=== PATIENT | female | born 1965 | race Two or more races ===

== ENCOUNTER 2020-10-02 09:41 | Inpatient (IN) | payer MEDICAID ==
[~2020-10-02] VITALS: Ht 162.6 cm; Wt 68.0 kg
[2020-10-02 09:45] VITALS: BP 131/67
--- NOTE | 2020-10-02 09:45 | NUR ---
ED Nurse Note: Pt brought in by ambulance from home c/o SOB and cough x 3 days with fever starting this morning. Respirations are labored, but even on 2 L NC with ow sat 97% upon arrival. All other vitals stable as documented. temp 101. A+Ox4 speaking in complete sentences.
[2020-10-02] MEDS ORDERED: dexAMETHasone 10mg/ml Inj IV ONE (10:00)
[2020-10-02] MEDS ORDERED: cefTRIAXone 1 GM in NS 55 ML IVPB ONE (10:00)
[2020-10-02] MEDS ORDERED: Azithromycin 500 MG in NS 275 ML IV ONE (10:00)
--- NOTE | 2020-10-02 10:20 | NUR ---
ED Nurse Note: palced pt on RA. Pt 95%. ED MD aware
[2020-10-02 10:33] LABS: HEMATOCRIT 38.1 % (37.0-47.0); HEMOGLOBIN 12.4 G/DL (12.0-16.0); MEAN CORPUSCULAR VOLUME 88 FL (80-99); PLATELET COUNT 230 K/UL (150-450); RED BLOOD COUNT 4.35 M/UL (4.20-5.40); RED CELL DISTRIBUTION WIDTH 12.5 % (11.6-14.8); WHITE BLOOD COUNT 12.6 K/UL (4.8-10.8)
--- NOTE | 2020-10-02 10:49 | NUR ---
ED Nurse Note: urine collected and sent to lab
--- NOTE | 2020-10-02 10:49 | NUR ---
ED Nurse Note: ABG back. Per eD MD, place pt on 4 L NC.
[2020-10-02 11:00] LABS: ANION GAP 10 mmol/L (5-15); BLOOD UREA NITROGEN 9 mg/dL (7-18); CALCIUM 9.2 MG/DL (8.5-10.1); CARBON DIOXIDE 27 MMOL/L (21-32); CHLORIDE 102 MMOL/L (98-107); CREATININE 0.8 MG/DL (0.55-1.30); POTASSIUM 3.2 MMOL/L (3.5-5.1); SODIUM 139 MMOL/L (136-145)
[2020-10-02 11:09] LABS: ALANINE AMINOTRANSFERASE 32 U/L (12-78); ALBUMIN 3.1 G/DL (3.4-5.0); ALBUMIN/GLOBULIN RATIO 0.6 (1.0-2.7); ALKALINE PHOSPHATASE 101 U/L (46-116); ASPARTATE AMINO TRANSFERASE 46 U/L (15-37); BILIRUBIN,TOTAL 0.8 MG/DL (0.2-1.0); CREATINE KINASE 138 U/L (26-308)
[2020-10-02 11:33] LABS: APPEARANCE,URINE SLIGHTLY CLOUDY; BILIRUBIN, URINE NEGATIVE (NEGATIVE); GLUCOSE, URINE (UA) NEGATIVE (NEGATIVE); KETONES,URINE NEGATIVE (NEGATIVE); LEUKOCYTE ESTERASE ,URINE 2+ (NEGATIVE); NITRITE,URINE NEGATIVE (NEGATIVE); PH,URINE 6 (4.5-8.0); PROTEIN,URINE 2+ (NEGATIVE); UROBILINOGEN,URINE 8 MG/DL (0.0-1.0)
[2020-10-02] MEDS ORDERED: Acetaminophen 500mg (ES) tab ORAL ONE (11:45)
[2020-10-02 11:47] LABS: COLOR,URINE YELLOW
[2020-10-02 12:00] VITALS: BP 139/76
--- NOTE | 2020-10-02 12:15 | Emergency Room Report ---
History of Present Illness General Chief Complaint: Dyspnea/Respdistress Source: Patient Present Illness HPI 55-year-old female no prior medical history brought in by ambulance for shortness of breath and cough x4 days. She has borderline O2 sat at rest at 88- 90%. Endorses nausea, fatigue, high fevers T-max 102 at home. History is limited secondary to patient's work of breathing. The patient's symptoms were gradual onset, severity was moderate, duration since 4 days. Quality: Dry cough Past medical history: Denies Past surgical history: Denies Smoking: Denies Alcohol use: Denies Drug use: Denies Review of systems: CONST: Positive fevers positive chills, No night sweats PULMONARY: Positive dry cough, positive shortness of breath CARDIAC: No chest pain, No palpitations GI: Positive vomiting, positive diarrhea , No melena_or_BRBPR : No dysuria, No hematuria, No discharge NEURO: No new_focal_weakness_or_numbness, No confusion, No vision changes 14 point Review of Systems is otherwise negative except per HPI Physical Exam: GENERAL: Awake_alert_ nontoxic, no acute distress Spo2 88% on RA -normal EYES: Extraocular muscles are intact. Conjunctivae clear. Lids without swelling ENT: External nose and ear normal_in_appearance. Oropharynx clear. Head_atraumatic, Moist_oral_mucosa NECK: No JVD. No meningismus. No thyromegaly. Supple. Trachea midline RESP: Tachypneic. Subcostal retractions. Speaks in clipped sentences CARDIAC: Regular rate and regular rhytm. No_significant pedal edema. ABDOMEN: Soft. Nondistended. Nontender_No_rebound_or_guarding. MSK: Normal muscle tone, without rigidity. Extremities without asymmetric deformity or swelling. SKIN: Warm and dry. No visible cyanosis or pallor NEUROLOGIC: Alert, oriented x3. Motor_and_sensation_grossly_intact. No truncal ataxia. Gait_normal Psych: Normal mood and affect, normal judgment and insight - COORDINATION OF CARE Case was discussed with: Patient Any labs and imaging that were ordered were interpreted as part of the medical decision making: Medical Decision Making/Plan: Differential includes COVID, pneumonia, bronchitis, CHF, pulmonary edema, pulmonary embolism, pleural effusion among others. On examination, patient has significant work of breathing and air hunger. Pulse oxygen saturation on room air is 88% to 90%. She has no underlying COPD or asthma. Room air ABG confirms hypoxemia. Due to hypoxia she was placed on nasal cannula at 4 L. CXR shows multifocal groundglass infiltrate. Seems to be consistent with COVID- 19 pneumonia, rather than CHF. COVID-19 rapid swab was positive. Labs are otherwise unremarkable except for ABG showing hypoxemia Presentation not consistent with ischemia / ACS. Based on the patients PSI/PORT score, has high enough mortality risk that inpat ient admission for IV antibiotics and clinical observation is most appropriate. Patient given Ceftriaxone / Azithromycin/decadron. Symptoms are not likely to be pulmonary embolism, patient no significant PE risk factors, and has more likely alternate cause of symptoms. - CRITICAL CARE TIME - I spent 35 minutes of critical care time. This time excludes any separately billable procedures. Organ systems at risk include: Pulmonary / respiratory Treatments/Evaluations: Emergent and rapid respiratory assessment and management with continuous monitoring. Advanced airway equipment at the ready, while the patient's respiratory symptoms were stabilized. Given the patients presentation with pneumonia with hypoxic respiratory failure, there existed the potential for imminent deterioration in the patient's condition due to respiratory compromise. Organ systems at risk for failure without immediate intervention include pulmonary / respiratory. This time was spent reviewing the patients records, reviewing vital signs, reassessing the patients clinical status, discussing the case and care with staff and consultants, and performing high-complexity medical decision making. I considered the possibility of Bipap vs intubation , but at this time the patient is protecting their airway and maintaining their saturation on supplemental oxygen so will defer intubation at this time, although they will be closely monitored for any further deterioration. 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 Rhythm: Normal sinus rhythm Rate: 91 bpm QTc: 450 Morphology: No_significant_ST_elevations_or_depressions, No STEMI Impression: Normal_sinus_rhythm_without_significant_abnormality Rhythm Strip Diag. Results Rhythm Strip Time: 12:53 EP Interpretation: yes Rate: 101 Rhythm: NSR, no PVC's, no ectopy Chest X-Ray Diagnostic Results Chest X-Ray Diagnostic Results : [address] Chest X-Ray: Views: [ 1 ] view(s) Indication: Cough Findings: Normal heart size. Mediastinum normal. Impression: multifocal pneumonia The X-ray(s) were independently viewed and interpreted contemporaneously Electronically signed by Jessie yañez DO Reevaluation Time: 12:53 Last Vital Signs Date Time Temp Pulse Resp B/P (MAP) Pulse Ox O2 Delivery O2 Flow Rate FiO2 10/02/20 09:45 85 18 Room Air 10/02/20 09:45 100.0 131/67 95 2.0 Status: improved Disposition: ADMITTED INPATIENT Admit Decision Time: 12:00 Condition: Stable Jessie Odell D.O. Oct 02, 2020 12:15
[2020-10-02 14:00] VITALS: BP 143/81
[2020-10-02] MEDS ORDERED: ALBUTEROL2.5 MG/3 M INH (14:12)
--- NOTE | 2020-10-02 14:13 | Diagnostic Imaging Report ---
Indication: Cough Technique: One view of the chest Comparison: none Findings: There are bilateral mid and lower lung streaky infiltrates in a peribronchovascular distribution. The heart size is upper limits normal. There is torturous ectatic and calcified. Impression: Bilateral infiltrates, likely multifocal pneumonia, likely viral
--- NOTE | 2020-10-02 15:14 | NUR ---
ED Nurse Note: pt transferred safely to 4E with all belongings.
--- NOTE | 2020-10-02 15:21 | NUR ---
REPORT GIVEN TO AGATHA BARLOW PATIENT WILL BE TRANSFERD TO ROOM 412-1 VIA [facility]
--- NOTE | 2020-10-02 15:36 | NUR ---
Note connie in EDM - 10/02/20 at 1536 by CHALINO ED Note: Report given to YEN Ugarte on 4E.
--- NOTE | 2020-10-02 15:50 | NUR ---
Note connie in EDM - 10/02/20 at 1706 by CHALINO ED Nurse Note: pt transferred safely to with all belongings.
--- NOTE | 2020-10-02 15:54 | NUR ---
NURSE NOTES: Received pt from ER and report from YEN Keller. Pt was transferred via hospital bed. Pt awake, alert and oriented x4, ambulatory, [place] speaking but understand Macanese. On NC 4L, saturating 97%. Pt stating hard to breath. no SOB noted. Denies any pain at this time. All belongings checked and accounted for. Vitals stable Skin intact. IV on R ac 20G intact and patent. Bed in low position and locked. Side rails up x2. Bedside commode provided. Call light within reach. Will continue to monitor.
--- NOTE | 2020-10-02 15:59 | Consultation ---
DATE OF CONSULTATION: 10/02/2020 PULMONARY CONSULTATION HISTORY OF PRESENT ILLNESS: This 55-year-old female was brought to the hospital with cough and shortness of breath. This has been going on for about 4 days. The patient was hypoxic on arrival. She reported fever at home. The patient denies any significant medical illnesses. PAST HISTORY: None. SURGERIES: None. SOCIAL HISTORY: No alcohol or tobacco usage. HOME MEDICATIONS: None reported. REVIEW OF SYSTEMS: Denies any headaches, hematemesis, melena, hematochezia, or weight loss. PHYSICAL EXAMINATION: GENERAL: A 55-year-old female. HEENT: Unremarkable. CHEST: Clear breath sounds bilaterally. HEART: Normal heart sounds. ABDOMEN: Soft. EXTREMITIES: There is no edema. NEUROLOGIC: Nonfocal. VITAL SIGNS: Blood pressure 143/80, heart rate is 84, respirations are 18, O2 sats 98% on 4 L oxygen, T-max 100.3. LABORATORY DATA: Lab testing shows white count 12,000, otherwise normal CBC and BMP. Potassium 3.2, AST 46. Troponin is negative. Lactic acid 1.3. ABG was obtained, which shows pH 7.49, pCO2 42, and pO2 of 43. Urinalysis is negative. X-ray chest was obtained, which shows bilateral patchy infiltrates. IMPRESSION: 1. Bilateral pneumonia. 2. COVID-19 pneumonia, confirmed on nasopharyngeal swab. 3. Hypoxemia. DISCUSSION: Admit to the hospital. The patient will benefit from Decadron. We will initiate. We will also start Lovenox. Defer the use of remdesivir to ID specialist. Consider broad-spectrum antibiotics. We will follow carefully. Louis Jean-Baptiste M.D. DR: STARR JOB#: [id number] CC:
[2020-10-02 16:00] VITALS: BP 116/67
--- NOTE | 2020-10-02 16:50 | Cardiac Electrophysiology PN ---
Subjective Subjective [id number] Objective Last 24 Hour Vital Signs Date Time Temp Pulse Resp B/P (MAP) Pulse Ox O2 Delivery O2 Flow Rate FiO2 10/02/20 16:00 98.0 85 20 116/67 (83) 97 10/02/20 15:14 86 20 130/70 98 Nasal Cannula 4.0 10/02/20 14:00 100.0 81 20 143/81 99 Nasal Cannula 4.0 10/02/20 12:31 100.1 10/02/20 12:00 100.3 86 18 139/76 100 Nasal Cannula 4.0 10/02/20 09:45 85 18 Room Air 10/02/20 09:45 100.0 79 18 131/67 95 Nasal Cannula 2.0 10/02/20 09:35 100.9 91 18 134/67 (89) 91 Room Air Laboratory Tests Test 10/02/20 10:15 10/02/20 10:30 10/02/20 10:45 White Blood Count 12.6 K/UL (4.8-10.8) H Red Blood Count 4.35 M/UL (4.20-5.40) Hemoglobin 12.4 G/DL (12.0-16.0) Hematocrit 38.1 % (37.0-47.0) Mean Corpuscular Volume 88 FL (80-99) Mean Corpuscular Hemoglobin 28.6 PG (27.0-31.0) Mean Corpuscular Hemoglobin Concent 32.6 G/DL (32.0-36.0) Red Cell Distribution Width 12.5 % (11.6-14.8) Platelet Count 230 K/UL (150-450) Mean Platelet Volume 10.1 FL (6.5-10.1) Neutrophils (%) (Auto) % (45.0-75.0) Lymphocytes (%) (Auto) % (20.0-45.0) Monocytes (%) (Auto) % (1.0-10.0) Eosinophils (%) (Auto) % (0.0-3.0) Basophils (%) (Auto) % (0.0-2.0) Differential Total Cells Counted 100 Neutrophils % (Manual) 90 % (45-75) H Lymphocytes % (Manual) 9 % (20-45) L Monocytes % (Manual) 1 % (1-10) Eosinophils % (Manual) 0 % (0-3) Basophils % (Manual) 0 % (0-2) Band Neutrophils 0 % (0-8) Platelet Estimate Adequate Platelet Morphology Normal Red Blood Cell Morphology Normal Sodium Level 139 MMOL/L (136-145) Potassium Level 3.2 MMOL/L (3.5-5.1) L Chloride Level 102 MMOL/L (98-107) Carbon Dioxide Level 27 MMOL/L (21-32) Anion Gap 10 mmol/L (5-15) Blood Urea Nitrogen 9 mg/dL (7-18) Creatinine 0.8 MG/DL (0.55-1.30) Estimat Glomerular Filtration Rate > 60 mL/min (>60) Glucose Level 130 MG/DL (74-106) H Lactic Acid Level 1.30 mmol/L (0.4-2.0) Calcium Level 9.2 MG/DL (8.5-10.1) Total Bilirubin 0.8 MG/DL (0.2-1.0) Aspartate Amino Transf (AST/SGOT) 46 U/L (15-37) H Alanine Aminotransferase (ALT/SGPT) 32 U/L (12-78) Alkaline Phosphatase 101 U/L (46-116) Total Creatine Kinase 138 U/L (26-308) Troponin I 0.000 ng/mL (0.000-0.056) Pro-B-Type Natriuretic Peptide 633 pg/mL (0-125) H Total Protein 8.1 G/DL (6.4-8.2) Albumin 3.1 G/DL (3.4-5.0) L Globulin 5.0 g/dL Albumin/Globulin Ratio 0.6 (1.0-2.7) L Arterial Blood pH 7.498 (7.350-7.450) Arterial Blood Partial Pressure CO2 32.1 mmHg (35.0-45.0) L Arterial Blood Partial Pressure O2 43.7 mmHg (75.0-100.0) Arterial Blood HCO3 24.4 mmol/L (22.0-26.0) Arterial Blood Oxygen Saturation 84.6 % (95-100) *L Arterial Blood Base Excess 1.7 (-2-2) Raghavendra Test Positive Urine Color Yellow Urine Appearance Slightly cloudy Urine pH 6 (4.5-8.0) Urine Specific [place] 1.015 (1.005-1.035) Urine Protein 2+ (NEGATIVE) H Urine Glucose (UA) Negative (NEGATIVE) Urine Ketones Negative (NEGATIVE) Urine Blood 1+ (NEGATIVE) H Urine Nitrite Negative (NEGATIVE) Urine Bilirubin Negative (NEGATIVE) Urine Urobilinogen 8 MG/DL (0.0-1.0) H Urine Leukocyte Esterase 2+ (NEGATIVE) H Urine RBC 0-2 /HPF (0 - 2) Urine WBC 5-10 /HPF (0 - 2) H Urine Squamous Epithelial Cells Few /LPF (NONE/OCC) Urine Bacteria Few /HPF (NONE) Urine Mucus Few /LPF (NONE/OCC) H Microbiology Date/Time Source Procedure Growth Status 10/02/20 10:15 Nasopharynx SARS-CoV-2 RdRp Gene Assay - Final Complete 10/02/20 10:15 Nasal Nares Left - Final Complete 10/02/20 10:15 Nasal Nares Left - Final Complete Link Damon MD Oct 02, 2020 16:50
--- NOTE | 2020-10-02 17:30 | History & Physical ---
History of Present Illness General Reason for Hospitalization: Dyspnea/Respdistress Present Illness HPI 55-year-old female no prior medical history brought in by ambulance for shortness of breath and cough x4 days. She has borderline O2 sat at rest at 88- 90%. Endorses nausea, fatigue, high fevers T-max 102 at home. History is limited secondary to patient's work of breathing. The patient's symptoms were gradual onset, severity was moderate, duration since 4 days. Quality: Dry cough Allergies: Coded Allergies: No Known Allergies (Unverified , 10/02/20) COVID-19 Screening Contact w/high risk pt: No Experienced COVID-19 symptoms?: Yes Coronavirus symptoms experienc: Fever (T>100.4F or >38C), Fatigue, Shortness of Breath Medication History Scheduled PRN Albuterol Sulfate* (Albuterol Sulfate Hhn*), 3 ML INH Q6H PRN for Shortness of Breath, (Reported) Patient History Healthcare decision maker Resuscitation status Advanced Directive on File Review of Systems Review of Symptoms General ROS: + fever Psychological ROS: no depression or mood changes, no memory loss Ophthalmic ROS: no visual changes or eye irritation ENT ROS: no nasal congestion, hearing loss, dizziness Allergy and Immunology ROS: no allergic symptoms or urticaria Hematological and Lymphatic ROS: no swollen glands, unusual bleeding or bruising Endocrine ROS: no polyuria, polydipsia, weight changes, temperature intolerance Respiratory ROS: + cough, + SOB Cardiovascular ROS: no chest pain or dyspnea on exertion Gastrointestinal ROS: denies abdominal pain, bright red blood in stool. Musculoskeletal ROS: no myalgias or arthralgias Neurological ROS: no TIA or stroke symptoms Dermatological ROS: no new or changing skin lesions, rashes or pruritis Physical Exam Physical Exam General appearance: alert, cooperative, no distress, appears stated age Head: Normocephalic, without obvious abnormality, atraumatic Eyes: conjunctivae/corneas clear. PERRL, EOM's intact. Fundi benign Throat: Lips, mucosa, and tongue normal. Teeth and gums normal Neck: supple, symmetrical, trachea midline, no adenopathy, thyroid: not enlarged, symmetric, no tenderness/mass/nodules, no carotid bruit and no JVD Lungs: clear to auscultation bilaterally Heart: regular rate and rhythm, S1, S2 normal, no murmur, click, rub or gallop Abdomen: soft, non-tender. Bowel sounds normal. No masses, no organomegaly Extremities: extremities normal, atraumatic, no cyanosis or edema Pulses: 2+ and symmetric Skin: Skin color, texture, turgor normal. No rashes or lesions Neurologic: Grossly normal Last 24 Hour Vital Signs Date Time Temp Pulse Resp B/P (MAP) Pulse Ox O2 Delivery O2 Flow Rate FiO2 10/02/20 16:00 98.0 85 20 116/67 (83) 97 10/02/20 15:14 86 20 130/70 98 Nasal Cannula 4.0 10/02/20 14:00 100.0 81 20 143/81 99 Nasal Cannula 4.0 10/02/20 12:31 100.1 10/02/20 12:00 100.3 86 18 139/76 100 Nasal Cannula 4.0 10/02/20 09:45 85 18 Room Air 10/02/20 09:45 100.0 79 18 131/67 95 Nasal Cannula 2.0 10/02/20 09:35 100.9 91 18 134/67 (89) 91 Room Air Laboratory Tests Test 10/02/20 10:15 10/02/20 10:30 10/02/20 10:45 White Blood Count 12.6 K/UL (4.8-10.8) H Red Blood Count 4.35 M/UL (4.20-5.40) Hemoglobin 12.4 G/DL (12.0-16.0) Hematocrit 38.1 % (37.0-47.0) Mean Corpuscular Volume 88 FL (80-99) Mean Corpuscular Hemoglobin 28.6 PG (27.0-31.0) Mean Corpuscular Hemoglobin Concent 32.6 G/DL (32.0-36.0) Red Cell Distribution Width 12.5 % (11.6-14.8) Platelet Count 230 K/UL (150-450) Mean Platelet Volume 10.1 FL (6.5-10.1) Neutrophils (%) (Auto) % (45.0-75.0) Lymphocytes (%) (Auto) % (20.0-45.0) Monocytes (%) (Auto) % (1.0-10.0) Eosinophils (%) (Auto) % (0.0-3.0) Basophils (%) (Auto) % (0.0-2.0) Differential Total Cells Counted 100 Neutrophils % (Manual) 90 % (45-75) H Lymphocytes % (Manual) 9 % (20-45) L Monocytes % (Manual) 1 % (1-10) Eosinophils % (Manual) 0 % (0-3) Basophils % (Manual) 0 % (0-2) Band Neutrophils 0 % (0-8) Platelet Estimate Adequate Platelet Morphology Normal Red Blood Cell Morphology Normal Sodium Level 139 MMOL/L (136-145) Potassium Level 3.2 MMOL/L (3.5-5.1) L Chloride Level 102 MMOL/L (98-107) Carbon Dioxide Level 27 MMOL/L (21-32) Anion Gap 10 mmol/L (5-15) Blood Urea Nitrogen 9 mg/dL (7-18) Creatinine 0.8 MG/DL (0.55-1.30) Estimat Glomerular Filtration Rate > 60 mL/min (>60) Glucose Level 130 MG/DL (74-106) H Lactic Acid Level 1.30 mmol/L (0.4-2.0) Calcium Level 9.2 MG/DL (8.5-10.1) Total Bilirubin 0.8 MG/DL (0.2-1.0) Aspartate Amino Transf (AST/SGOT) 46 U/L (15-37) H Alanine Aminotransferase (ALT/SGPT) 32 U/L (12-78) Alkaline Phosphatase 101 U/L (46-116) Total Creatine Kinase 138 U/L (26-308) Troponin I 0.000 ng/mL (0.000-0.056) Pro-B-Type Natriuretic Peptide 633 pg/mL (0-125) H Total Protein 8.1 G/DL (6.4-8.2) Albumin 3.1 G/DL (3.4-5.0) L Globulin 5.0 g/dL Albumin/Globulin Ratio 0.6 (1.0-2.7) L Arterial Blood pH 7.498 (7.350-7.450) Arterial Blood Partial Pressure CO2 32.1 mmHg (35.0-45.0) L Arterial Blood Partial Pressure O2 43.7 mmHg (75.0-100.0) Arterial Blood HCO3 24.4 mmol/L (22.0-26.0) Arterial Blood Oxygen Saturation 84.6 % (95-100) *L Arterial Blood Base Excess 1.7 (-2-2) Raghavendra Test Positive Urine Color Yellow Urine Appearance Slightly cloudy Urine pH 6 (4.5-8.0) Urine Specific [place] 1.015 (1.005-1.035) Urine Protein 2+ (NEGATIVE) H Urine Glucose (UA) Negative (NEGATIVE) Urine Ketones Negative (NEGATIVE) Urine Blood 1+ (NEGATIVE) H Urine Nitrite Negative (NEGATIVE) Urine Bilirubin Negative (NEGATIVE) Urine Urobilinogen 8 MG/DL (0.0-1.0) H Urine Leukocyte Esterase 2+ (NEGATIVE) H Urine RBC 0-2 /HPF (0 - 2) Urine WBC 5-10 /HPF (0 - 2) H Urine Squamous Epithelial Cells Few /LPF (NONE/OCC) Urine Bacteria Few /HPF (NONE) Urine Mucus Few /LPF (NONE/OCC) H Microbiology Date/Time Source Procedure Growth Status 10/02/20 10:15 Nasopharynx SARS-CoV-2 RdRp Gene Assay - Final Complete 10/02/20 10:15 Nasal Nares Left - Final Complete 10/02/20 10:15 Nasal Nares Left - Final Complete Height (Feet): 5 Height (Inches): 5.00 Weight (Pounds): 150 Medications Current Medications Medications (Trade) Dose Ordered Sig/Libertad Route PRN Reason Start Time Stop Time Status Last Admin Dose Admin Acetaminophen (Tylenol) 650 mg Q6H PRN ORAL For Pain 10/02/20 17:15 11/01/20 17:14 Acetaminophen (Tylenol) 650 mg Q6H PRN ORAL Temp >100.5 10/02/20 17:15 11/01/20 17:14 Albuterol/ Ipratropium (Combivent Respimat) 1 puff Q4HRT INH 10/02/20 19:00 11/01/20 18:59 Dexamethasone Sodium Phosphate (Decadron 10mg/ ml Inj) 6 mg DAILY IV 10/03/20 09:00 10/11/20 12:00 Enoxaparin Sodium (Lovenox) 40 mg DAILY SUBQ 10/03/20 09:00 01/01/21 08:59 Furosemide (Lasix) 40 mg DAILY IV 10/03/20 09:00 11/02/20 08:59 Potassium Chloride (K-Dur) 40 meq ONCE ORAL 10/02/20 17:15 10/02/20 19:00 Assessment/Plan Diagnosis [facility]: #COVID pneumonia #hypoxemic resp failure #sepsis - admit inpatient - ID eval - pulm eval - dexamethsone - defer remdesevir to ID - breathing tx - supplemental O2 - DCT ppx - monitor labs - avoid nephrotoxins [facility] Hospital declaration I spent 70 minutes on this patient's case, and 35 minutes was dedicated to counseling and/or care coordination. MIPS (Merit-based Incentive Payment System) Applicable CPT: 76735, 97411 CHECK ALL THAT ARE MET: Measure #5 (CHF): All ages. Prescribe YUSRA/ARB upon discharge for patients with left ventricular systolic dysfunction. If not, the reason is clearly documented in the medical chart. Measure #8 (CHF): All ages. Prescribe a beta megan upon discharge for patients with left ventricular systolic dysfunction. If not, the reason is clearly documented in the medical chart. Measure #47 Advance care plan or surrogate decision maker documented in the medical record. Measure #130 The provider has documented, updated, or reviewed the patients current medication list and has documented it in the patients note. Measure #374 (All): Send report to referring provider. Measure #407(Sepsis due to MSSA bacteremia): Age 18+ Patient treated with a beta-lactam antibiotic (Nafcillin, Oxacillin or Cefazolin) as definitive therapy. MEDICAL COMPLEXITY High complexity medical decision making (need 2/3 categories) Problem - need 4 points Acute/new problem with new plan for workup (4 points, 1 max) Acute/new problem without additional workup (3 points, 1 max) Unstable chronic problem actively being managed (2 point each, 2 max) Stable chronic problem actively being managed (1 point each, 2 max) Self-limited/transient process (constipation, muscle ache, etc) (1 point each, 2 max) Data - need 4 points Reviewed labs/imaging studies (1 points, 2 max) Independent review of imaging (EKG, xrays, etc) (2 points, 2 max) Discussed case with consult/other MD/RN (2 points, 2 max) High Risk - qualify if have one of the following: Severe exacerbation of acute problem, acute mental status change, IV narcotics, monitoring drug levels (vancomycin, INR, tacrolimus etc) Manuel Rajput M.D. 6, 2021 17:30
[2020-10-02] MEDS ORDERED: Albuterol/Ipratropium 3ml neb HHN SCH (19:00)
--- NOTE | 2020-10-02 19:14 | Consultation ---
DATE OF CONSULTATION: 10/02/2020 CARDIOLOGY CONSULTATION REFERRING PHYSICIAN: Manuel Rajput M.D. REASON FOR CONSULTATION: Shortness of breath and tachycardia. HISTORY OF PRESENT ILLNESS: The patient is a 55-year-old lady with no past medical history, who was brought to the emergency room for increased shortness of breath and cough for 4 days. The patient's O2 saturation at rest has been 88%. The patient was evaluated in the emergency room and noted to be COVID positive. The patient was admitted at the time of my evaluation, is on 4 L nasal cannula. Denies any chest pain, although she is mildly short of breath. REVIEW OF SYSTEMS: Negative other than what was mentioned in history of present illness. PAST MEDICAL HISTORY: As mentioned above. FAMILY HISTORY: Noncontributory. SOCIAL HISTORY: She lives at home. Does not smoke or drink alcohol. PHYSICAL EXAMINATION: VITAL SIGNS: Blood pressure of 116/67, pulse 85, respirations 18, temperature 98. Maximum temperature is 100.3. HEAD AND NECK: Mild JVD. LUNGS: Decreased breath sounds. CARDIOVASCULAR: Regular S1 and S2 with no gallop or murmur. ABDOMEN: Soft. EXTREMITIES: No pitting edema. LABORATORY AND DIAGNOSTIC DATA: Labs show white count of 12.7, hematocrit 12.5, hematocrit 38.1, and platelet count 230. Sodium 139, potassium 3.2, BUN of 9, creatinine 0.8, and glucose of 130. BNP is 633. ASSESSMENT AND PLAN: 1. Elevated BNP of 633 and shortness of breath. The patient may have some component of congestive heart failure, even though primarily it is due to the patient's COVID pneumonia. We will repeat EKG and get an echocardiogram and repeat cardiac enzymes for further evaluation. 2. History of COVID pneumonia. The patient is on dexamethasone and Lovenox. 3. Hypokalemia. Potassium was replaced. Thank you very much for allowing me to participate in the care of this patient. Please do not hesitate to contact me for any questions regarding my evaluation. Link Damon M.D. DR: KENNEDY JOB#: [id number] CC:
[2020-10-02 20:00] VITALS: BP 110/68
--- NOTE | 2020-10-02 20:00 | NUR ---
NURSE NOTES: Patient received in bed, aox4, no acute distress. On o2 via NC at 4LPM. Ambulatory with steady gait, provided with commode for safety. Will continue with plan of care.
--- NOTE | 2020-10-02 20:00 | NUR ---
NURSE HAND-OFF: Important Events on Shift:[New admission from home. On NC 4L 97%] Patient Status: [stable] Diet: [reg] Pending Orders: [] Pending Results/Labs:[] Pending MD notification:[] Latest Vital Signs: Temperature 98.0 , Pulse 85 , B/P 116 /67 , Respiratory Rate 20 , O2 SAT 97 , Nasal Cannula, O2 Flow Rate 4.0 . Vital Sign Comment: [stable] Latest Hugo Fall Score: 35 Fall Risk: Medium Risk Safety Measures: Call light Within Reach, Bed Alarm Zone 1, Side Rails Side Rails x2, Bed position Low and Locked. Fall Precautions: Report given to [YEN Russo].
[2020-10-02 23:47] VITALS: BP 123/67
[2020-10-03 04:00] VITALS: BP 120/64
[2020-10-03 06:47] LABS: HEMATOCRIT 34.4 % (37.0-47.0); HEMOGLOBIN 11.4 G/DL (12.0-16.0); MEAN CORPUSCULAR VOLUME 87 FL (80-99); PLATELET COUNT 279 K/UL (150-450); RED BLOOD COUNT 3.94 M/UL (4.20-5.40); RED CELL DISTRIBUTION WIDTH 12.7 % (11.6-14.8); WHITE BLOOD COUNT 13.8 K/UL (4.8-10.8)
--- NOTE | 2020-10-03 07:27 | NUR ---
NURSE HAND-OFF: Important Events on Shift:[uneventful] Patient Status: [stable] Diet: [Regular] Pending Orders: [2decho and EKG] Pending Results/Labs:[] Pending MD notification:[] Latest Vital Signs: Temperature 97.9 , Pulse 75 , B/P 120 /64 , Respiratory Rate 18 , O2 SAT 98 , Nasal Cannula, O2 Flow Rate 4.0 . Vital Sign Comment: [] Latest Hugo Fall Score: 20 Fall Risk: Low Risk Safety Measures: Call light Within Reach, Bed Alarm Zone 1, Side Rails Side Rails x2, Bed position Low and Locked. Fall Precautions: Patient Fall Education Report given to [Lise Al RN].
--- NOTE | 2020-10-03 07:30 | NUR ---
NURSE NOTES: Patient is in bed awake and able to verbalize needs. Stable. Denies pain. SOB noted, respirations even on 2L oxygen via nc. Patient instructed to use call light for assistance, verbalized understanding. Patient is in bed in locked and lowest position with call light within reach. All safety measures provided. Will continue plan of care.
[2020-10-03 07:57] LABS: ANION GAP 9 mmol/L (5-15); BLOOD UREA NITROGEN 17 mg/dL (7-18); CALCIUM 9.3 MG/DL (8.5-10.1); CARBON DIOXIDE 27 MMOL/L (21-32); CHLORIDE 105 MMOL/L (98-107); CREATININE 0.8 MG/DL (0.55-1.30); PHOSPHORUS 2.9 MG/DL (2.5-4.9); POTASSIUM 3.8 MMOL/L (3.5-5.1); SODIUM 141 MMOL/L (136-145)
[2020-10-03 08:00] VITALS: BP 117/66
[2020-10-03] MEDS: Enoxaparin 40mg Inj SUBQ SCH (08:50)
[2020-10-03] MEDS: dexAMETHasone 10mg/ml Inj IV SCH (08:51)
--- NOTE | 2020-10-03 11:08 | Pulmonology Progress Note ---
Subjective Constitutional: Reports: no symptoms, fever - now resolved HEENT: Repors: no symptoms Respiratory: Reports: dry cough, shortness of breath Cardiovascular: Reports: no symptoms Gastrointestinal/Abdominal: Reports: no symptoms Allergies: Coded Allergies: No Known Allergies (Unverified , 10/02/20) Objective Last 24 Hour Vital Signs Date Time Temp Pulse Resp B/P (MAP) Pulse Ox O2 Delivery O2 Flow Rate FiO2 10/03/20 09:00 Nasal Cannula 4.0 10/03/20 08:00 97.6 68 28 117/66 (83) 97 10/03/20 04:00 97.9 75 18 120/64 (82) 98 10/02/20 23:47 98.1 70 18 123/67 (85) 97 10/02/20 21:00 Nasal Cannula 4.0 10/02/20 20:00 97.7 78 16 110/68 (82) 95 10/02/20 16:30 Nasal Cannula 4.0 10/02/20 16:00 98.0 85 20 116/67 (83) 97 10/02/20 15:14 86 20 130/70 98 Nasal Cannula 4.0 10/02/20 14:00 100.0 81 20 143/81 99 Nasal Cannula 4.0 10/02/20 12:31 100.1 10/02/20 12:00 100.3 86 18 139/76 100 Nasal Cannula 4.0 Intake and Output 10/02/20 10/03/20 19:00 07:00 Intake Total 360 ml Balance 360 ml Intake Other 360 ml # Voids 2 2 Objective 10/03 saturating at 94-96% on 4L NC General Appearance: no acute distress HEENT: atraumatic Respiratory: lungs clear Cardiovascular: normal rate, regular rhythm Abdomen: soft, non tender Microbiology Date/Time Source Procedure Growth Status 10/02/20 10:15 Nasopharynx SARS-CoV-2 RdRp Gene Assay - Final Complete 10/02/20 10:15 Nasal Nares Left - Final Complete 10/02/20 10:15 Nasal Nares Left - Final Complete Laboratory Tests 10/03/20 06:15: White Blood Count 13.8H, Red Blood Count 3.94L, Hemoglobin 11.4L, Hematocrit 34.4L, Mean Corpuscular Volume 87, Mean Corpuscular Hemoglobin 29.0, Mean Corpuscular Hemoglobin Concent 33.1, Red Cell Distribution Width 12.7, Platelet Count 279, Mean Platelet Volume 8.7, Neutrophils (%) (Auto) , Lymphocytes (%) (Auto) , Monocytes (%) (Auto) , Eosinophils (%) (Auto) , Basophils (%) (Auto) , Neutrophils % (Manual) [Pending], Lymphocytes % (Manual) [Pending], Platelet Estimate [Pending], Platelet Morphology [Pending], Sodium Level 141, Potassium Level 3.8, Chloride Level 105, Carbon Dioxide Level 27, Anion Gap 9, Blood Urea Nitrogen 17, Creatinine 0.8, Estimat Glomerular Filtration Rate > 60, Glucose Level 126H, Calcium Level 9.3, Phosphorus Level 2.9, Magnesium Level 2.4, Troponin I 0.000, Pro-B-Type Natriuretic Peptide 917H, Thyroid Stimulating Hormone (TSH) 0.285L Current Medications Medications (Trade) Dose Ordered Sig/Libertad Route PRN Reason Start Time Stop Time Status Last Admin Dose Admin Acetaminophen (Tylenol) 650 mg Q6H PRN ORAL For Pain 10/02/20 17:15 11/01/20 17:14 10/03/20 03:48 Acetaminophen (Tylenol) 650 mg Q6H PRN ORAL Temp >100.5 10/02/20 17:15 11/01/20 17:14 Albuterol/ Ipratropium (Combivent Respimat) 1 puff Q4HRT INH 10/02/20 19:00 11/01/20 18:59 10/03/20 06:31 Dexamethasone Sodium Phosphate (Decadron 10mg/ ml Inj) 6 mg DAILY IV 10/03/20 09:00 10/11/20 12:00 10/03/20 08:51 Enoxaparin Sodium (Lovenox) 40 mg DAILY SUBQ 10/03/20 09:00 01/01/21 08:59 10/03/20 08:50 Furosemide (Lasix) 40 mg DAILY IV 10/03/20 09:00 11/02/20 08:59 10/03/20 08:51 Assessment/Plan Assessment/Plan 1. Bilateral pneumonia. 2. COVID-19 pneumonia, confirmed on nasopharyngeal swab. - Defer the use of remdesivir to ID specialist. - Consider broad-spectrum antibiotics. 3. Hypoxemia. - on Decadron - currently saturating at 94-96% on 4L NC - keep SaO2 >90% 4. hx of asthma - on albuterol prn DVT ppx - Lovenox We will follow carefully. The care for this patient was discussed with my supervising physician Time spent for this case was approximately 31 minutes Darryn Hernandez Oct 03, 2020 11:08 Louis Jean-Baptiste MD Oct 03, 2020 14:36
[2020-10-03 12:00] VITALS: BP 124/68
--- NOTE | 2020-10-03 15:32 | NUR ---
CASE MANAGEMENT:INITIAL REVIEW 55 YR OLD FEMALE BIBJignesh FROM HOME CC;DYSPNEA. RESPIRATORY DISTRESS. SI;COVID PNEUMONIA. HYPOXIA. 100.9 91 18 139/76 95% 2L NC WBC 12.6 K+ 3.2 GLU 130 AST 46 BNP 633 ALB 3.1 UA+ PROTEIN, BLOOD, UROBILINOGEN, LEUKOCYTE ESTERASE, MUCUS COVID RAPID ~ POSITIVE CXR ~ Bilateral infiltrates, likely multifocal pneumonia, likely viral IS;ROCEPHIN IV ZITHROMAX IV DECADRON IV TYLENOL PO K-DUR PO ADMITTED TO MED SURG MED SURG STATUS DCP;PENDING HOSPITAL STAY Addendum: 10/03/20 at 1539 by ANTONIO ORTIZ LVN CM INTERQUAL CRITERIA MET
[2020-10-03 16:00] VITALS: BP 146/76
--- NOTE | 2020-10-03 16:45 | Cardiac Electrophysiology PN ---
Assessment/Plan Assessment/Plan 1. Elevated BNP of 633 and shortness of breath. The patient may have some component of congestive heart failure, even though primarily it is due to the patient's COVID pneumonia. EF 65% on echocardiogram. On Lasix 40 iv daily 2. History of COVID pneumonia. The patient is on dexamethasone and Lovenox. 3. Hypokalemia. Potassium was replaced. Subjective Subjective On 4 liter nasal cannula Objective Last 24 Hour Vital Signs Date Time Temp Pulse Resp B/P (MAP) Pulse Ox O2 Delivery O2 Flow Rate FiO2 10/03/20 12:00 97.7 67 24 124/68 (86) 95 10/03/20 09:00 Nasal Cannula 4.0 10/03/20 08:00 97.6 68 28 117/66 (83) 97 10/03/20 04:00 97.9 75 18 120/64 (82) 98 10/02/20 23:47 98.1 70 18 123/67 (85) 97 10/02/20 21:00 Nasal Cannula 4.0 10/02/20 20:00 97.7 78 16 110/68 (82) 95 Intake and Output 10/02/20 10/03/20 19:00 07:00 Intake Total 360 ml Balance 360 ml Intake Other 360 ml # Voids 2 2 Laboratory Tests Test 10/03/20 06:15 White Blood Count 13.8 K/UL (4.8-10.8) H Red Blood Count 3.94 M/UL (4.20-5.40) L Hemoglobin 11.4 G/DL (12.0-16.0) L Hematocrit 34.4 % (37.0-47.0) L Mean Corpuscular Volume 87 FL (80-99) Mean Corpuscular Hemoglobin 29.0 PG (27.0-31.0) Mean Corpuscular Hemoglobin Concent 33.1 G/DL (32.0-36.0) Red Cell Distribution Width 12.7 % (11.6-14.8) Platelet Count 279 K/UL (150-450) Mean Platelet Volume 8.7 FL (6.5-10.1) Neutrophils (%) (Auto) % (45.0-75.0) Lymphocytes (%) (Auto) % (20.0-45.0) Monocytes (%) (Auto) % (1.0-10.0) Eosinophils (%) (Auto) % (0.0-3.0) Basophils (%) (Auto) % (0.0-2.0) Differential Total Cells Counted 100 Neutrophils % (Manual) 92 % (45-75) H Lymphocytes % (Manual) 6 % (20-45) L Monocytes % (Manual) 2 % (1-10) Eosinophils % (Manual) 0 % (0-3) Basophils % (Manual) 0 % (0-2) Band Neutrophils 0 % (0-8) Platelet Estimate Adequate Platelet Morphology Normal Red Blood Cell Morphology Normal Sodium Level 141 MMOL/L (136-145) Potassium Level 3.8 MMOL/L (3.5-5.1) Chloride Level 105 MMOL/L (98-107) Carbon Dioxide Level 27 MMOL/L (21-32) Anion Gap 9 mmol/L (5-15) Blood Urea Nitrogen 17 mg/dL (7-18) Creatinine 0.8 MG/DL (0.55-1.30) Estimat Glomerular Filtration Rate > 60 mL/min (>60) Glucose Level 126 MG/DL (74-106) H Calcium Level 9.3 MG/DL (8.5-10.1) Phosphorus Level 2.9 MG/DL (2.5-4.9) Magnesium Level 2.4 MG/DL (1.8-2.4) Troponin I 0.000 ng/mL (0.000-0.056) Pro-B-Type Natriuretic Peptide 917 pg/mL (0-125) H Thyroid Stimulating Hormone (TSH) 0.285 uiU/mL (0.358-3.740) Microbiology Date/Time Source Procedure Growth Status 10/02/20 10:15 Nasopharynx SARS-CoV-2 RdRp Gene Assay - Final Complete 10/02/20 10:15 Nasal Nares Left - Final Complete 10/02/20 10:15 Nasal Nares Left - Final Complete Objective HEAD AND NECK: Mild JVD. LUNGS: Decreased breath sounds. CARDIOVASCULAR: Regular S1 and S2 with no gallop or murmur. ABDOMEN: Soft. EXTREMITIES: No pitting edema. Link Damon MD Oct 03, 2020 16:45
--- NOTE | 2020-10-03 18:28 | Infectious Diseases Prog Note ---
Assessment/Plan Assessment/Plan Full consult dictated: A) 1) covid-19 infection with pna, hypoxia, ? CAP, leukocytosis, fevers, ? sepsis 2) pmh noted 3) allergies - nkda P) 1) dexamethasone and remdesivir 2) ceftriaxone and azithromycin 3) monitor labs, chest x-ray and hypoxia 4) thank you Subjective Allergies: Coded Allergies: No Known Allergies (Unverified , 10/02/20) Objective Last 24 Hour Vital Signs Date Time Temp Pulse Resp B/P (MAP) Pulse Ox O2 Delivery O2 Flow Rate FiO2 10/03/20 16:00 98.1 68 22 146/76 (99) 96 10/03/20 12:00 97.7 67 24 124/68 (86) 95 10/03/20 09:00 Nasal Cannula 4.0 10/03/20 08:00 97.6 68 28 117/66 (83) 97 10/03/20 04:00 97.9 75 18 120/64 (82) 98 10/02/20 23:47 98.1 70 18 123/67 (85) 97 10/02/20 21:00 Nasal Cannula 4.0 10/02/20 20:00 97.7 78 16 110/68 (82) 95 Height (Feet): 5 Height (Inches): 4.00 Weight (Pounds): 150 Microbiology Date/Time Source Procedure Growth Status 10/02/20 10:15 Nasopharynx SARS-CoV-2 RdRp Gene Assay - Final Complete 10/02/20 10:15 Nasal Nares Left - Final Complete 10/02/20 10:15 Nasal Nares Left - Final Complete Laboratory Tests Test 10/03/20 06:15 White Blood Count 13.8 K/UL (4.8-10.8) H Red Blood Count 3.94 M/UL (4.20-5.40) L Hemoglobin 11.4 G/DL (12.0-16.0) L Hematocrit 34.4 % (37.0-47.0) L Mean Corpuscular Volume 87 FL (80-99) Mean Corpuscular Hemoglobin 29.0 PG (27.0-31.0) Mean Corpuscular Hemoglobin Concent 33.1 G/DL (32.0-36.0) Red Cell Distribution Width 12.7 % (11.6-14.8) Platelet Count 279 K/UL (150-450) Mean Platelet Volume 8.7 FL (6.5-10.1) Neutrophils (%) (Auto) % (45.0-75.0) Lymphocytes (%) (Auto) % (20.0-45.0) Monocytes (%) (Auto) % (1.0-10.0) Eosinophils (%) (Auto) % (0.0-3.0) Basophils (%) (Auto) % (0.0-2.0) Differential Total Cells Counted 100 Neutrophils % (Manual) 92 % (45-75) H Lymphocytes % (Manual) 6 % (20-45) L Monocytes % (Manual) 2 % (1-10) Eosinophils % (Manual) 0 % (0-3) Basophils % (Manual) 0 % (0-2) Band Neutrophils 0 % (0-8) Platelet Estimate Adequate Platelet Morphology Normal Red Blood Cell Morphology Normal Sodium Level 141 MMOL/L (136-145) Potassium Level 3.8 MMOL/L (3.5-5.1) Chloride Level 105 MMOL/L (98-107) Carbon Dioxide Level 27 MMOL/L (21-32) Anion Gap 9 mmol/L (5-15) Blood Urea Nitrogen 17 mg/dL (7-18) Creatinine 0.8 MG/DL (0.55-1.30) Estimat Glomerular Filtration Rate > 60 mL/min (>60) Glucose Level 126 MG/DL (74-106) H Calcium Level 9.3 MG/DL (8.5-10.1) Phosphorus Level 2.9 MG/DL (2.5-4.9) Magnesium Level 2.4 MG/DL (1.8-2.4) Troponin I 0.000 ng/mL (0.000-0.056) Pro-B-Type Natriuretic Peptide 917 pg/mL (0-125) H Thyroid Stimulating Hormone (TSH) 0.285 uiU/mL (0.358-3.740) Current Medications Medications (Trade) Dose Ordered Sig/Libertad Route PRN Reason Start Time Stop Time Status Last Admin Dose Admin Acetaminophen (Tylenol) 650 mg Q6H PRN ORAL For Pain 10/02/20 17:15 11/01/20 17:14 10/03/20 15:27 Acetaminophen (Tylenol) 650 mg Q6H PRN ORAL Temp >100.5 10/02/20 17:15 11/01/20 17:14 Albuterol/ Ipratropium (Combivent Respimat) 1 puff Q4HRT INH 10/02/20 19:00 11/01/20 18:59 10/03/20 15:23 Dexamethasone Sodium Phosphate (Decadron 10mg/ ml Inj) 6 mg DAILY IV 10/03/20 09:00 10/11/20 12:00 10/03/20 08:51 Enoxaparin Sodium (Lovenox) 40 mg DAILY SUBQ 10/03/20 09:00 01/01/21 08:59 10/03/20 08:50 Furosemide (Lasix) 40 mg DAILY IV 10/03/20 09:00 11/02/20 08:59 10/03/20 08:51 Cristiano Grant MD Oct 03, 2020 18:28
--- NOTE | 2020-10-03 19:24 | NUR ---
NURSE HAND-OFF: Important Events on Shift: o2 therapy Patient Status: stable Diet: reg Pending Orders: n/a Pending Results/Labs:n/a Pending MD notification:n/a Latest Vital Signs: Temperature 98.1 , Pulse 68 , B/P 146 /76 , Respiratory Rate 22 , O2 SAT 96 , Nasal Cannula, O2 Flow Rate 4.0 . Vital Sign Comment: n/a Latest Hugo Fall Score: 20 Fall Risk: Low Risk Safety Measures: Call light Within Reach, Bed Alarm Zone 1, Side Rails Side Rails x2, Bed position Low and Locked. Fall Precautions: Patient Fall Education Report given to Michael BARLOW.
[2020-10-03 20:00] VITALS: BP 130/71
--- NOTE | 2020-10-03 20:30 | Consultation ---
DATE OF CONSULTATION: 10/03/2020 INFECTIOUS DISEASE CONSULTATION CONSULTING PHYSICIAN: Cristiano Grant M.D. ATTENDING PHYSICIAN: Manuel Rajput M.D. REFERRING PHYSICIAN: Manuel Rajput M.D. REASON FOR CONSULTATION: COVID-19 infection, rule out community-acquired pneumonia, sepsis, fevers, leukocytosis, and hypoxia. CHIEF COMPLAINT: The patient's chief complaint coming into the hospital is hypoxic COVID infection, pneumonia, leukocytosis, fevers. HISTORY OF PRESENT ILLNESS: This is a very pleasant 55-year-old female, who comes in to [facility] with fevers and hypoxia. The patient's initial saturations were 91%. The patient is requiring four liters of oxygen. Infectious Disease consultation is requested. She currently has dexamethasone. She does have pneumonia and chest pain, most likely viral. However, because of elevated white count and fevers, consider bacterial infection and also possible sepsis. The patient was started on remdesivir, Rocephin, azithromycin, in addition to dexamethasone for the COVID infection and pneumonia. REVIEW OF SYSTEMS: Main issue is the cough, congestion, hypoxia, and shortness of breath. She has fevers coming in. Currently, no chills. CARDIAC: No chest pain. GASTROINTESTINAL: No nausea, vomiting, or diarrhea. GENITOURINARY: No urinary symptoms. SKIN: No rash. PULMONARY: She has cough, congestion, and shortness of breath. PAST MEDICAL HISTORY: The patient's past medical history is otherwise negative. SOCIAL HISTORY: Negative for smoking, alcohol, or drug abuse. ALLERGIES: No known drug allergies. FAMILY HISTORY: Noncontributory. MEDICATIONS: Upon reviewing the MAR, she is on the following medications. She is on remdesivir, Rocephin, azithromycin, furosemide, , dexamethasone, acetaminophen, albuterol. Outside medications noted and reconciliated. PHYSICAL EXAMINATION: VITAL SIGNS: Temperature 98.1, pulse rate 60, respiratory rate 22, blood pressure 146/76, she is on 4 liters nasal cannula. Respiratory rate has been as high as 28. T-max has been as high as 100.9. GENERAL: Alert and responsive. She looks mildly short of breath. HEAD AND NECK: Oral exam, no thrush. Eye exam, no icterus. Normocephalic. Neck is supple. No JVD. HEART: No gallop or murmur. ABDOMEN: Soft. Positive bowel sounds. Nontender. LUNGS: Few bilateral rhonchi and rales. SKIN: No rash. MUSCULOSKELETAL: No effusion. Legs are without cellulitis. PERIPHERAL VASCULAR: No cyanosis or gangrene. NEUROLOGIC: Intact. She is alert and oriented x3. LINE SITES: Without phlebitis. GENITOURINARY: No Mcdonald. She is in COVID isolation. LABORATORY AND DIAGNOSTIC DATA: COVID nasopharyngeal molecular testing was positive. White count 13.8, hemoglobin 11.4. Creatinine 0.8. Imaging studies, chest x-ray shows bilateral multifocal pneumonia is noted and reviewed, consistent with COVID infection or viral pneumonia. Influenza screen is negative. ASSESSMENT AND PLAN: 1. The patient has COVID-19 infection with pneumonia, hypoxia, possible community-acquired pneumonia, sepsis, fevers, leukocytosis. Continue dexamethasone, however, because of her low flow O2 requirement, the remdesivir is indicated in addition because of elevated white count, possible sepsis. She needs Rocephin, azithromycin to cover community-acquired pneumonia. Continue Rocephin and azithromycin for community-acquired pneumonia and sepsis and fevers and leukocytosis and continue dexamethasone, remdesivir for COVID-19 infection and pneumonia. Monitor hypoxia. Continue COVID isolation. Case was communicated with Dr. Rajput and also discussed with pharmacy. 2. No other significant past medical history. 3. Social history is negative. 4. Family history is noncontributory. 5. MAR is noted. 6. Case was discussed with RN. 7. Continue treatment per primary consultants. Cristiano Grant M.D. DR: PRIETO JOB#: [id number] CC:
--- NOTE | 2020-10-03 20:33 | NUR ---
NURSE NOTES: Patient in bed, awake, alert and verbally responsive. Able to make needs known. Respiration is even, nasal cannula 4 L. Skin is warm and dry to touch. Abdomen is soft and non distended. Kept clean and comfortable. Bed in low and locked position. Provided safe environment. Call light is at bedside. Will continue plan of care.
[2020-10-03] MEDS: cefTRIAXone 1 GM in D5W 50 ML IVPB SCH (21:03)
[2020-10-03] MEDS: TraZODone HCl 25 mg tablet ORAL SCH (21:05)
[2020-10-03] MEDS ORDERED: Loading Dose:Remdesivir 200mg/NS 210ml IV SCH ×2 (22:00)
[2020-10-04] VITALS: BP 128/84
[2020-10-04 04:00] VITALS: BP 130/70
[2020-10-04 06:31] LABS: HEMATOCRIT 33.9 % (37.0-47.0); HEMOGLOBIN 11.4 G/DL (12.0-16.0); MEAN CORPUSCULAR VOLUME 87 FL (80-99); PLATELET COUNT 318 K/UL (150-450); RED BLOOD COUNT 3.92 M/UL (4.20-5.40); WHITE BLOOD COUNT 20.8 K/UL (4.8-10.8)
--- NOTE | 2020-10-04 07:30 | NUR ---
NURSE HAND-OFF: Important Events on Shift: 94% on ra Patient Status: stable Diet: reg Pending Orders: n/a Pending Results/Labs:n/a Pending MD notification:n/a Latest Vital Signs: Temperature 98.0 , Pulse 67 , B/P 133 /79 , Respiratory Rate 22 , O2 SAT 94 , Nasal Cannula, O2 Flow Rate 4.0 . Vital Sign Comment: n/a Latest Hugo Fall Score: 20 Fall Risk: Low Risk Safety Measures: Call light Within Reach, Bed Alarm Zone 1, Side Rails Side Rails x2, Bed position Low and Locked. Fall Precautions: Patient Fall Education . Addendum: 10/04/20 at 1859 by POONAM PRICE RN wrong time, 10/04/20 at 18:59.
--- NOTE | 2020-10-04 07:30 | NUR ---
NURSE NOTES: Patient is in bed awake and able to verbalize needs. Stable. Denies pain, SOB noted. Patient instructed to use call light for assistance, verbalized understanding. Patient is in bed in locked and lowest position with call light within reach. All needs met at this time. Will continue to monitor.
[2020-10-04 08:00] VITALS: BP 129/71
[2020-10-04 08:46] LABS: ALANINE AMINOTRANSFERASE 45 U/L (12-78); ALBUMIN 2.6 G/DL (3.4-5.0); ALBUMIN/GLOBULIN RATIO 0.6 (1.0-2.7); ALKALINE PHOSPHATASE 86 U/L (46-116); ANION GAP 10 mmol/L (5-15); ASPARTATE AMINO TRANSFERASE 40 U/L (15-37); BILIRUBIN,TOTAL 0.3 MG/DL (0.2-1.0); BLOOD UREA NITROGEN 26 mg/dL (7-18); CALCIUM 8.9 MG/DL (8.5-10.1); CARBON DIOXIDE 28 MMOL/L (21-32); CHLORIDE 105 MMOL/L (98-107); CREATININE 0.8 MG/DL (0.55-1.30); POTASSIUM 3.5 MMOL/L (3.5-5.1); SODIUM 142 MMOL/L (136-145)
[2020-10-04] MEDS: Azithromycin 250mg tab ORAL SCH (09:51)
[2020-10-04] MEDS: Enoxaparin 40mg Inj SUBQ SCH (09:52)
[2020-10-04] MEDS: dexAMETHasone 10mg/ml Inj IV SCH (09:52)
[2020-10-04 12:00] VITALS: BP 126/68
--- NOTE | 2020-10-04 12:00 | Pulmonology Progress Note ---
Subjective Constitutional: Reports: no symptoms, fever - now resolved HEENT: Repors: no symptoms Respiratory: Reports: dry cough, shortness of breath Cardiovascular: Reports: no symptoms Gastrointestinal/Abdominal: Reports: no symptoms Allergies: Coded Allergies: No Known Allergies (Unverified , 10/02/20) Objective Last 24 Hour Vital Signs Date Time Temp Pulse Resp B/P (MAP) Pulse Ox O2 Delivery O2 Flow Rate FiO2 10/04/20 09:00 Nasal Cannula 4.0 10/04/20 08:00 98.0 65 20 129/71 (90) 95 10/04/20 04:00 98.1 63 18 130/70 (90) 95 10/04/20 00:00 97.9 66 18 128/84 (99) 96 10/03/20 20:09 Nasal Cannula 4.0 10/03/20 20:00 97.8 66 20 130/71 (90) 95 10/03/20 16:00 98.1 68 22 146/76 (99) 96 10/03/20 12:00 97.7 67 24 124/68 (86) 95 Intake and Output 10/03/20 10/04/20 19:00 07:00 Intake Total 550 ml 1300 ml Balance 550 ml 1300 ml Intake Oral 550 ml 1000 ml IV Total 300 ml # Voids 3 Objective 10/04 saturating at 96% on 4L NC 10/03 saturating at 94-96% on 4L NC General Appearance: no acute distress HEENT: atraumatic Respiratory: lungs clear Cardiovascular: normal rate, regular rhythm Abdomen: soft, non tender Microbiology Date/Time Source Procedure Growth Status 10/02/20 10:15 Nasopharynx SARS-CoV-2 RdRp Gene Assay - Final Complete 10/02/20 10:15 Nasal Nares Left - Final Complete 10/02/20 10:15 Nasal Nares Left - Final Complete 10/02/20 10:15 Blood Blood Culture - Preliminary NO GROWTH AFTER 24 HOURS Resulted 10/02/20 10:15 Blood Blood Culture - Preliminary NO GROWTH AFTER 24 HOURS Resulted Laboratory Tests 10/04/20 05:30: White Blood Count 20.8#H, Red Blood Count 3.92L, Hemoglobin 11.4L, Hematocrit 33.9L, Mean Corpuscular Volume 87, Mean Corpuscular Hemoglobin 29.2, Mean Corpuscular Hemoglobin Concent 33.7, Red Cell Distribution Width 13.0, Platelet Count 318, Mean Platelet Volume 9.3, Neutrophils (%) (Auto) , Lymphocytes (%) (Auto) , Monocytes (%) (Auto) , Eosinophils (%) (Auto) , Basophils (%) (Auto) , Differential Total Cells Counted 100, Neutrophils % (Manual) 88H, Lymphocytes % (Manual) 8L, Monocytes % (Manual) 4, Eosinophils % (Manual) 0, Basophils % (Manual) 0, Band Neutrophils 0, Platelet Estimate Adequate, Platelet Morphology Normal, Red Blood Cell Morphology Normal, Sodium Level 142, Potassium Level 3.5, Chloride Level 105, Carbon Dioxide Level 28, Anion Gap 10, Blood Urea Nitrogen 26H, Creatinine 0.8, Estimat Glomerular Filtration Rate > 60, Glucose Level 130H , Calcium Level 8.9, Phosphorus Level 3.8, Magnesium Level 2.4, Total Bilirubin 0.3, Direct Bilirubin 0.2, Aspartate Amino Transf (AST/SGOT) 40H, Alanine Aminotransferase (ALT/SGPT) 45, Alkaline Phosphatase 86, Total Protein 7.2, Albumin 2.6L, Globulin 4.6, Albumin/Globulin Ratio 0.6L, Free Thyroxine 1.36 Current Medications Medications (Trade) Dose Ordered Sig/Libertad Route PRN Reason Start Time Stop Time Status Last Admin Dose Admin Acetaminophen (Tylenol) 650 mg Q6H PRN ORAL For Pain 10/02/20 17:15 11/01/20 17:14 10/03/20 15:27 Acetaminophen (Tylenol) 650 mg Q6H PRN ORAL Temp >100.5 10/02/20 17:15 11/01/20 17:14 Albuterol/ Ipratropium (Combivent Respimat) 1 puff Q4HRT INH 10/02/20 19:00 11/01/20 18:59 10/04/20 10:16 Azithromycin (Zithromax) 500 mg DAILY ORAL 10/04/20 09:00 10/11/20 08:59 10/04/20 09:51 Ceftriaxone Sodium 1 gm/ Dextrose 50 ml @ 100 mls/hr Q24H IVPB 10/03/20 21:00 10/10/20 20:59 10/03/20 21:03 Dexamethasone Sodium Phosphate (Decadron 10mg/ ml Inj) 6 mg DAILY IV 10/03/20 09:00 10/11/20 12:00 10/04/20 09:52 Enoxaparin Sodium (Lovenox) 40 mg DAILY SUBQ 10/03/20 09:00 01/01/21 08:59 10/04/20 09:52 Furosemide (Lasix) 40 mg DAILY IV 10/03/20 09:00 11/02/20 08:59 10/04/20 09:52 Remdesivir 100 mg/ Sodium Chloride 250 ml @ 250 mls/hr Q24H IV 10/04/20 22:00 10/07/20 22:59 Trazodone HCl (Desyrel) 25 mg BEDTIME ORAL 10/03/20 21:00 11/02/20 20:59 10/03/20 21:05 Assessment/Plan Assessment/Plan 1. Bilateral pneumonia. 2. COVID-19 pneumonia, confirmed on nasopharyngeal swab. - On remdesivir per ID (10/03-) - On Broad-spectrum antibiotics 3. Hypoxemia. - on Decadron - currently saturating at 94-96% on 4L NC; titrate down as tolerated - keep SaO2 >90% 4. hx of asthma - on albuterol prn DVT ppx - Lovenox We will follow carefully. The care for this patient was discussed with my supervising physician Time spent for this case was approximately 31 minutes Darryn Hernandez Oct 04, 2020 12:00
--- NOTE | 2020-10-04 12:56 | Cardiology Report ---
APPROVED REPORT EKG Measurement Heart [id number] 122P49 [id number] <Conclusion> Normal sinus rhythm Normal ECG
--- NOTE | 2020-10-04 12:59 | Cardiology Report ---
APPROVED REPORT EKG Measurement Heart [id number] [place] 122P52 [id number] <Conclusion> Normal sinus rhythm Left axis deviation Abnormal ECG
--- NOTE | 2020-10-04 15:21 | Internal Med Progress Note ---
Subjective Physician Name Manuel Rajput Attending Physician Manuel Rajput M.D. Current Medications Medications (Trade) Dose Ordered Sig/Libertad Route PRN Reason Start Time Stop Time Status Last Admin Dose Admin Acetaminophen (Tylenol) 650 mg Q6H PRN ORAL For Pain 10/02/20 17:15 11/01/20 17:14 10/03/20 15:27 Acetaminophen (Tylenol) 650 mg Q6H PRN ORAL Temp >100.5 10/02/20 17:15 11/01/20 17:14 Albuterol/ Ipratropium (Combivent Respimat) 1 puff Q4HRT INH 10/02/20 19:00 11/01/20 18:59 10/04/20 10:16 Azithromycin (Zithromax) 500 mg DAILY ORAL 10/04/20 09:00 10/11/20 08:59 10/04/20 09:51 Ceftriaxone Sodium 1 gm/ Dextrose 50 ml @ 100 mls/hr Q24H IVPB 10/03/20 21:00 10/10/20 20:59 10/03/20 21:03 Dexamethasone Sodium Phosphate (Decadron 10mg/ ml Inj) 6 mg DAILY IV 10/03/20 09:00 10/11/20 12:00 10/04/20 09:52 Enoxaparin Sodium (Lovenox) 40 mg DAILY SUBQ 10/03/20 09:00 01/01/21 08:59 10/04/20 09:52 Furosemide (Lasix) 40 mg DAILY IV 10/03/20 09:00 11/02/20 08:59 10/04/20 09:52 Remdesivir 100 mg/ Sodium Chloride 250 ml @ 250 mls/hr Q24H IV 10/04/20 22:00 10/07/20 22:59 Trazodone HCl (Desyrel) 25 mg BEDTIME ORAL 10/03/20 21:00 11/02/20 20:59 10/03/20 21:05 Allergies: Coded Allergies: No Known Allergies (Unverified , 10/02/20) All Systems: reviewed and negative except above Objective Last Vital Signs Date Time Temp Pulse Resp B/P (MAP) Pulse Ox O2 Delivery O2 Flow Rate FiO2 10/04/20 12:00 98.0 63 20 126/68 (87) 94 10/04/20 09:00 Nasal Cannula 4.0 Laboratory Tests Test 10/04/20 05:30 White Blood Count 20.8 K/UL (4.8-10.8) #H Red Blood Count 3.92 M/UL (4.20-5.40) L Hemoglobin 11.4 G/DL (12.0-16.0) L Hematocrit 33.9 % (37.0-47.0) L Mean Corpuscular Volume 87 FL (80-99) Mean Corpuscular Hemoglobin 29.2 PG (27.0-31.0) Mean Corpuscular Hemoglobin Concent 33.7 G/DL (32.0-36.0) Red Cell Distribution Width 13.0 % (11.6-14.8) Platelet Count 318 K/UL (150-450) Mean Platelet Volume 9.3 FL (6.5-10.1) Neutrophils (%) (Auto) % (45.0-75.0) Lymphocytes (%) (Auto) % (20.0-45.0) Monocytes (%) (Auto) % (1.0-10.0) Eosinophils (%) (Auto) % (0.0-3.0) Basophils (%) (Auto) % (0.0-2.0) Differential Total Cells Counted 100 Neutrophils % (Manual) 88 % (45-75) H Lymphocytes % (Manual) 8 % (20-45) L Monocytes % (Manual) 4 % (1-10) Eosinophils % (Manual) 0 % (0-3) Basophils % (Manual) 0 % (0-2) Band Neutrophils 0 % (0-8) Platelet Estimate Adequate Platelet Morphology Normal Red Blood Cell Morphology Normal Sodium Level 142 MMOL/L (136-145) Potassium Level 3.5 MMOL/L (3.5-5.1) Chloride Level 105 MMOL/L (98-107) Carbon Dioxide Level 28 MMOL/L (21-32) Anion Gap 10 mmol/L (5-15) Blood Urea Nitrogen 26 mg/dL (7-18) H Creatinine 0.8 MG/DL (0.55-1.30) Estimat Glomerular Filtration Rate > 60 mL/min (>60) Glucose Level 130 MG/DL (74-106) H Calcium Level 8.9 MG/DL (8.5-10.1) Phosphorus Level 3.8 MG/DL (2.5-4.9) Magnesium Level 2.4 MG/DL (1.8-2.4) Total Bilirubin 0.3 MG/DL (0.2-1.0) Direct Bilirubin 0.2 MG/DL (0.0-0.3) Aspartate Amino Transf (AST/SGOT) 40 U/L (15-37) H Alanine Aminotransferase (ALT/SGPT) 45 U/L (12-78) Alkaline Phosphatase 86 U/L (46-116) Total Protein 7.2 G/DL (6.4-8.2) Albumin 2.6 G/DL (3.4-5.0) L Globulin 4.6 g/dL Albumin/Globulin Ratio 0.6 (1.0-2.7) L Free Thyroxine 1.36 NG/DL (0.76-1.46) Microbiology Date/Time Source Procedure Growth Status 10/02/20 10:15 Nasopharynx SARS-CoV-2 RdRp Gene Assay - Final Complete 10/02/20 10:15 Nasal Nares Left - Final Complete 10/02/20 10:15 Nasal Nares Left - Final Complete 10/02/20 10:15 Blood Blood Culture - Preliminary NO GROWTH AFTER 24 HOURS Resulted 10/02/20 10:15 Blood Blood Culture - Preliminary NO GROWTH AFTER 24 HOURS Resulted Intake and Output 10/03/20 10/04/20 18:59 06:59 Intake Total 550 ml 1300 ml Balance 550 ml 1300 ml Intake Oral 550 ml 1000 ml IV Total 300 ml # Voids 3 Objective General appearance: alert, cooperative, no distress, appears stated age Head: Normocephalic, without obvious abnormality, atraumatic Eyes: conjunctivae/corneas clear. PERRL, EOM's intact. Fundi benign Throat: Lips, mucosa, and tongue normal. Teeth and gums normal Neck: supple, symmetrical, trachea midline, no adenopathy, thyroid: not enlarged, symmetric, no tenderness/mass/nodules, no carotid bruit and no JVD Lungs: clear to auscultation bilaterally Heart: regular rate and rhythm, S1, S2 normal, no murmur, click, rub or gallop Abdomen: soft, non-tender. Bowel sounds normal. No masses, no organomegaly Extremities: extremities normal, atraumatic, no cyanosis or edema Pulses: 2+ and symmetric Skin: Skin color, texture, turgor normal. No rashes or lesions Neurologic: Grossly normal Assessment/Plan Assessment/Plan #COVID pneumonia #hypoxemic resp failure #sepsis - admit inpatient - ID eval - pulm eval - dexamethsone - defer remdesevir to ID - breathing tx - supplemental O2 - DCT ppx - monitor labs - avoid nephrotoxins Manuel Rajput M.D. Oct 04, 2020 15:21
--- NOTE | 2020-10-04 15:39 | Cardiac Electrophysiology PN ---
Assessment/Plan Assessment/Plan 1. Elevated BNP of 633 and shortness of breath. The patient may have some component of congestive heart failure, even though primarily it is due to the patient's COVID pneumonia. EF 65% on Lasix 40 iv daily 2. History of COVID pneumonia. The patient is on dexamethasone and Lovenox.On 2 liter NC 3. Hypokalemia. Potassium was replaced. Subjective Subjective On 2 liter nasal cannula. VSS. Objective Last 24 Hour Vital Signs Date Time Temp Pulse Resp B/P (MAP) Pulse Ox O2 Delivery O2 Flow Rate FiO2 10/04/20 12:00 98.0 63 20 126/68 (87) 94 10/04/20 09:00 Nasal Cannula 4.0 10/04/20 08:00 98.0 65 20 129/71 (90) 95 10/04/20 04:00 98.1 63 18 130/70 (90) 95 10/04/20 00:00 97.9 66 18 128/84 (99) 96 10/03/20 20:09 Nasal Cannula 4.0 10/03/20 20:00 97.8 66 20 130/71 (90) 95 10/03/20 16:00 98.1 68 22 146/76 (99) 96 Intake and Output 10/03/20 10/04/20 19:00 07:00 Intake Total 550 ml 1300 ml Balance 550 ml 1300 ml Intake Oral 550 ml 1000 ml IV Total 300 ml # Voids 3 Laboratory Tests Test 10/04/20 05:30 White Blood Count 20.8 K/UL (4.8-10.8) #H Red Blood Count 3.92 M/UL (4.20-5.40) L Hemoglobin 11.4 G/DL (12.0-16.0) L Hematocrit 33.9 % (37.0-47.0) L Mean Corpuscular Volume 87 FL (80-99) Mean Corpuscular Hemoglobin 29.2 PG (27.0-31.0) Mean Corpuscular Hemoglobin Concent 33.7 G/DL (32.0-36.0) Red Cell Distribution Width 13.0 % (11.6-14.8) Platelet Count 318 K/UL (150-450) Mean Platelet Volume 9.3 FL (6.5-10.1) Neutrophils (%) (Auto) % (45.0-75.0) Lymphocytes (%) (Auto) % (20.0-45.0) Monocytes (%) (Auto) % (1.0-10.0) Eosinophils (%) (Auto) % (0.0-3.0) Basophils (%) (Auto) % (0.0-2.0) Differential Total Cells Counted 100 Neutrophils % (Manual) 88 % (45-75) H Lymphocytes % (Manual) 8 % (20-45) L Monocytes % (Manual) 4 % (1-10) Eosinophils % (Manual) 0 % (0-3) Basophils % (Manual) 0 % (0-2) Band Neutrophils 0 % (0-8) Platelet Estimate Adequate Platelet Morphology Normal Red Blood Cell Morphology Normal Sodium Level 142 MMOL/L (136-145) Potassium Level 3.5 MMOL/L (3.5-5.1) Chloride Level 105 MMOL/L (98-107) Carbon Dioxide Level 28 MMOL/L (21-32) Anion Gap 10 mmol/L (5-15) Blood Urea Nitrogen 26 mg/dL (7-18) H Creatinine 0.8 MG/DL (0.55-1.30) Estimat Glomerular Filtration Rate > 60 mL/min (>60) Glucose Level 130 MG/DL (74-106) H Calcium Level 8.9 MG/DL (8.5-10.1) Phosphorus Level 3.8 MG/DL (2.5-4.9) Magnesium Level 2.4 MG/DL (1.8-2.4) Total Bilirubin 0.3 MG/DL (0.2-1.0) Direct Bilirubin 0.2 MG/DL (0.0-0.3) Aspartate Amino Transf (AST/SGOT) 40 U/L (15-37) H Alanine Aminotransferase (ALT/SGPT) 45 U/L (12-78) Alkaline Phosphatase 86 U/L (46-116) Total Protein 7.2 G/DL (6.4-8.2) Albumin 2.6 G/DL (3.4-5.0) L Globulin 4.6 g/dL Albumin/Globulin Ratio 0.6 (1.0-2.7) L Free Thyroxine 1.36 NG/DL (0.76-1.46) Microbiology Date/Time Source Procedure Growth Status 10/02/20 10:15 Nasopharynx SARS-CoV-2 RdRp Gene Assay - Final Complete 10/02/20 10:15 Nasal Nares Left - Final Complete 10/02/20 10:15 Nasal Nares Left - Final Complete 10/02/20 10:15 Blood Blood Culture - Preliminary NO GROWTH AFTER 24 HOURS Resulted 10/02/20 10:15 Blood Blood Culture - Preliminary NO GROWTH AFTER 24 HOURS Resulted Objective HEAD AND NECK: Mild JVD. LUNGS: Decreased breath sounds. CARDIOVASCULAR: Regular S1 and S2 with no gallop or murmur. ABDOMEN: Soft. EXTREMITIES: No pitting edema. Link Damon MD Oct 04, 2020 15:39
[2020-10-04 16:00] VITALS: BP 133/79
--- NOTE | 2020-10-04 19:32 | NUR ---
NURSE NOTES: Patient in bed, awake, alert and verbally responsive. Able to make needs known. Respiration is even and unlabored. On nasal cannula. complained of headache, previous shift gave tylenol. Skin is warm and dry to touch. Iv site noted, intact. Bed in low and locked position. Provided safe environment. Call light is at bedside. Will continue plan of care.
--- NOTE | 2020-10-04 19:58 | NUR ---
NURSE HAND-OFF: Important Events on Shift: O2 sat 94% on room air Patient Status: stable Diet: reg Pending Orders: n/a Pending Results/Labs:n/a Pending MD notification:n/a Latest Vital Signs: Temperature 98.0 , Pulse 67 , B/P 133 /79 , Respiratory Rate 22 , O2 SAT 94 , Nasal Cannula, O2 Flow Rate 4.0 . Vital Sign Comment: n/a Latest Hugo Fall Score: 20 Fall Risk: Low Risk Safety Measures: Call light Within Reach, Bed Alarm Zone 1, Side Rails Side Rails x2, Bed position Low and Locked. Fall Precautions: Patient Fall Education Report given to Michael BARLOW.
[2020-10-04 20:00] VITALS: BP 137/74
[2020-10-04] MEDS: cefTRIAXone 1 GM in D5W 50 ML IVPB SCH (20:32)
[2020-10-04] MEDS: Maintenance Dose:Remdesivir 100mg/NS 230ml x 4 Doses IV SCH ×2 (21:19)
[2020-10-04] MEDS: TraZODone HCl 25 mg tablet ORAL SCH (23:24)
--- NOTE | 2020-10-04 23:30 | NUR ---
NURSE NOTES: Patient nasal cannula increased to 4 L. Complained of headaches. Will reassess patient.
[2020-10-05] VITALS: BP 134/71
[2020-10-05 04:00] VITALS: BP 137/68
--- NOTE | 2020-10-05 04:30 | NUR ---
NURSE NOTES: Patient is awake, alert, no complaint of headaches. Will try to titrate, saturation is 94% on 4 L nasal cannula.
--- NOTE | 2020-10-05 07:22 | NUR ---
NURSE HAND-OFF: Important Events on Shift: back 4 L headache if lowered Patient Status: Diet: Pending Orders: Pending Results/Labs: Pending MD notification: Latest Vital Signs: Temperature 97.5 , Pulse 59 , B/P 137 /68 , Respiratory Rate 20 , O2 SAT 93 , Nasal Cannula, O2 Flow Rate 4.0 . Vital Sign Comment: WNL Latest Hugo Fall Score: 20 Fall Risk: Low Risk Safety Measures: Call light Within Reach, Bed Alarm Zone 1, Side Rails Side Rails x2, Bed position Low and Locked. Fall Precautions: Patient Fall Education Report given to Tanika Valero.
--- NOTE | 2020-10-05 07:30 | NUR ---
NURSE NOTES: RN received report from YEN Rodriguez. RN received patient in bed. Patient AAOX4, verbally responsive, SOB on exertion and speaking on NC of 4 L. No s/s of pain. Call light within reach, bed in lowest position and locked. Will continue to monitor.
[2020-10-05 08:00] VITALS: BP 119/65
[2020-10-05 08:00] LABS: HEMATOCRIT 35.4 % (37.0-47.0); HEMOGLOBIN 12.1 G/DL (12.0-16.0); MEAN CORPUSCULAR VOLUME 85 FL (80-99); PLATELET COUNT 351 K/UL (150-450); RED BLOOD COUNT 4.18 M/UL (4.20-5.40); RED CELL DISTRIBUTION WIDTH 13.4 % (11.6-14.8)
[2020-10-05 08:08] LABS: ALANINE AMINOTRANSFERASE 54 U/L (12-78); ALBUMIN 2.7 G/DL (3.4-5.0); ALBUMIN/GLOBULIN RATIO 0.6 (1.0-2.7); ALKALINE PHOSPHATASE 84 U/L (46-116); ANION GAP 10 mmol/L (5-15); ASPARTATE AMINO TRANSFERASE 38 U/L (15-37); BILIRUBIN,TOTAL 0.4 MG/DL (0.2-1.0); BLOOD UREA NITROGEN 28 mg/dL (7-18); CARBON DIOXIDE 29 MMOL/L (21-32); CHLORIDE 103 MMOL/L (98-107); CREATININE 0.7 MG/DL (0.55-1.30); POTASSIUM 3.4 MMOL/L (3.5-5.1); SODIUM 141 MMOL/L (136-145)
[2020-10-05 12:00] VITALS: BP 136/70
--- NOTE | 2020-10-05 13:12 | Pulmonology Progress Note ---
Subjective Constitutional: Reports: no symptoms, fever - now resolved HEENT: Repors: no symptoms Respiratory: Reports: dry cough, shortness of breath Cardiovascular: Reports: no symptoms Gastrointestinal/Abdominal: Reports: no symptoms Allergies: Coded Allergies: No Known Allergies (Unverified , 10/02/20) Objective Last 24 Hour Vital Signs Date Time Temp Pulse Resp B/P (MAP) Pulse Ox O2 Delivery O2 Flow Rate FiO2 10/05/20 08:00 97.0 61 20 119/65 (83) 95 10/05/20 04:00 97.5 59 20 137/68 (91) 93 10/05/20 00:00 97.4 65 20 134/71 (92) 93 10/04/20 23:47 Nasal Cannula 4.0 10/04/20 20:00 97.3 63 20 137/74 (95) 94 10/04/20 16:00 98.0 67 22 133/79 (97) 94 Intake and Output 10/04/20 10/05/20 19:00 07:00 Intake Total 1500 ml Balance 1500 ml Intake Oral 1200 ml IV Total 300 ml # Voids 2 # Bowel Movements 1 General Appearance: no acute distress HEENT: atraumatic Respiratory: lungs clear Cardiovascular: normal rate, regular rhythm Abdomen: soft, non tender Laboratory Tests 10/05/20 05:45: White Blood Count 15.0H, Red Blood Count 4.18L, Hemoglobin 12.1, Hematocrit 35.4L, Mean Corpuscular Volume 85, Mean Corpuscular Hemoglobin 29.0, Mean Corpuscular Hemoglobin Concent 34.2, Red Cell Distribution Width 13.4, Platelet Count 351, Mean Platelet Volume 9.0, Neutrophils (%) (Auto) , Lymphocytes (%) (Auto) , Monocytes (%) (Auto) , Eosinophils (%) (Auto) , Basophils (%) (Auto) , Differential Total Cells Counted 100, Neutrophils % (Manual) 84H, Lymphocytes % (Manual) 12L, Monocytes % (Manual) 4, Eosinophils % (Manual) 0, Basophils % (Manual) 0, Band Neutrophils 0, Platelet Estimate Adequate, Platelet Morphology Normal, Red Blood Cell Morphology Normal, Sodium Level 141, Potassium Level 3.4L , Chloride Level 103, Carbon Dioxide Level 29, Anion Gap 10, Blood Urea Nitrogen 28H, Creatinine 0.7, Estimat Glomerular Filtration Rate > 60, Glucose Level 134H , Calcium Level 9.0, Phosphorus Level 3.8, Magnesium Level 2.5H, Total Bilirubin 0.4, Direct Bilirubin 0.1, Aspartate Amino Transf (AST/SGOT) 38H, Alanine Aminotransferase (ALT/SGPT) 54, Alkaline Phosphatase 84, Total Protein 7.5, Albumin 2.7L, Globulin 4.8, Albumin/Globulin Ratio 0.6L Current Medications Medications (Trade) Dose Ordered Sig/Libertad Route PRN Reason Start Time Stop Time Status Last Admin Dose Admin Acetaminophen (Tylenol) 650 mg Q6H PRN ORAL For Pain 10/02/20 17:15 11/01/20 17:14 10/04/20 23:25 Acetaminophen (Tylenol) 650 mg Q6H PRN ORAL Temp >100.5 10/02/20 17:15 11/01/20 17:14 Albuterol/ Ipratropium (Combivent Respimat) 1 puff Q4HRT INH 10/02/20 19:00 11/01/20 18:59 10/05/20 06:51 Azithromycin (Zithromax) 500 mg DAILY ORAL 10/04/20 09:00 10/11/20 08:59 10/04/20 09:51 Ceftriaxone Sodium 1 gm/ Dextrose 50 ml @ 100 mls/hr Q24H IVPB 10/03/20 21:00 10/10/20 20:59 10/04/20 20:32 Dexamethasone Sodium Phosphate (Decadron 10mg/ ml Inj) 6 mg DAILY IV 10/03/20 09:00 10/11/20 12:00 10/04/20 09:52 Enoxaparin Sodium (Lovenox) 40 mg DAILY SUBQ 10/03/20 09:00 01/01/21 08:59 10/04/20 09:52 Furosemide (Lasix) 40 mg DAILY IV 10/03/20 09:00 11/02/20 08:59 10/04/20 09:52 Remdesivir 100 mg/ Sodium Chloride 250 ml @ 250 mls/hr Q24H IV 10/04/20 22:00 10/07/20 22:59 10/04/20 21:19 Trazodone HCl (Desyrel) 25 mg BEDTIME ORAL 10/03/20 21:00 2/6/21 20:59 10/04/20 23:24 Assessment/Plan Assessment/Plan Assessment 1. Bilateral pneumonia. 2. COVID-19 pneumonia, confirmed on nasopharyngeal swab. 3. Hypoxemia. 4. hx of asthma - PLAN: On remdesivir per ID (10/03-) On Broad-spectrum antibiotics on Decadron currently saturating at 95% on 4L NC; titrate down as tolerated keep SaO2 >90% On albuterol We will follow carefully. The care for this patient was discussed with my supervising physician Dorothy Martinez [employer]PECT[employer] Oct 05, 2020 13:12
[2020-10-05] MEDS: Azithromycin 250mg tab ORAL SCH (13:47)
[2020-10-05] MEDS: dexAMETHasone 10mg/ml Inj IV SCH (13:47)
[2020-10-05] MEDS: Enoxaparin 40mg Inj SUBQ SCH (13:50)
[2020-10-05 16:00] VITALS: BP 131/79
--- NOTE | 2020-10-05 19:52 | NUR ---
NURSE HAND-OFF: Important Events on Shift:not able to titrate down O2 due to patient complaining of headache, abnormal ABGs Patient Status: SOB on exertion and speaking Diet: regular Pending Orders: n/a Pending Results/Labs:n/a Pending MD notification:n/a Latest Vital Signs: Temperature 97.0 , Pulse 61 , B/P 131 /79 , Respiratory Rate 22 , O2 SAT 95 , Nasal Cannula, O2 Flow Rate 4.0 . Vital Sign Comment: stable Latest Hugo Fall Score: 20 Fall Risk: Low Risk Safety Measures: Call light Within Reach, Bed Alarm Zone 1, Side Rails Side Rails x2, Bed position Low and Locked. Fall Precautions: Patient Fall Education Report given to YEN Hernandez.
[2020-10-05 20:00] VITALS: BP 124/74
--- NOTE | 2020-10-05 20:00 | NUR ---
NURSE NOTES: Patient received in bed,awake and alert. On o2 via NC at 4LPM still SaO2 at 94%. Verbalized relief from headache as previous shift medicated. Will continue to monitor.
[2020-10-05] MEDS: cefTRIAXone 1 GM in D5W 50 ML IVPB SCH (20:17)
--- NOTE | 2020-10-05 21:53 | Cardiac Electrophysiology PN ---
Assessment/Plan Assessment/Plan 1. Elevated BNP of 633 and shortness of breath. The patient may have some component of congestive heart failure, even though primarily it is due to the patient's COVID pneumonia. EF 65% on Lasix 40 iv daily 2. COVID pneumonia on dexamethasone and Lovenox and 4 liter NC 3. Hypokalemia. Potassium was replaced. Subjective Subjective On 4 liter nasal cannula in Civid isolation. VSS. Objective Last 24 Hour Vital Signs Date Time Temp Pulse Resp B/P (MAP) Pulse Ox O2 Delivery O2 Flow Rate FiO2 10/05/20 21:00 Nasal Cannula 4.0 10/05/20 20:00 97.9 88 17 124/74 (91) 93 10/05/20 18:53 97.0 10/05/20 16:00 97.9 61 22 131/79 (96) 95 10/05/20 15:48 97.0 10/05/20 12:00 97.3 72 20 136/70 (92) 93 10/05/20 09:00 Nasal Cannula 4.0 10/05/20 08:00 97.0 61 20 119/65 (83) 95 10/05/20 04:00 97.5 59 20 137/68 (91) 93 10/05/20 00:00 97.4 65 20 134/71 (92) 93 10/04/20 23:47 Nasal Cannula 4.0 Intake and Output 10/04/20 10/05/20 19:00 07:00 Intake Total 1500 ml Balance 1500 ml Intake Oral 1200 ml IV Total 300 ml # Voids 2 # Bowel Movements 1 Laboratory Tests Test 10/05/20 05:45 10/05/20 14:25 White Blood Count 15.0 K/UL (4.8-10.8) H Red Blood Count 4.18 M/UL (4.20-5.40) L Hemoglobin 12.1 G/DL (12.0-16.0) Hematocrit 35.4 % (37.0-47.0) L Mean Corpuscular Volume 85 FL (80-99) Mean Corpuscular Hemoglobin 29.0 PG (27.0-31.0) Mean Corpuscular Hemoglobin Concent 34.2 G/DL (32.0-36.0) Red Cell Distribution Width 13.4 % (11.6-14.8) Platelet Count 351 K/UL (150-450) Mean Platelet Volume 9.0 FL (6.5-10.1) Neutrophils (%) (Auto) % (45.0-75.0) Lymphocytes (%) (Auto) % (20.0-45.0) Monocytes (%) (Auto) % (1.0-10.0) Eosinophils (%) (Auto) % (0.0-3.0) Basophils (%) (Auto) % (0.0-2.0) Differential Total Cells Counted 100 Neutrophils % (Manual) 84 % (45-75) H Lymphocytes % (Manual) 12 % (20-45) L Monocytes % (Manual) 4 % (1-10) Eosinophils % (Manual) 0 % (0-3) Basophils % (Manual) 0 % (0-2) Band Neutrophils 0 % (0-8) Platelet Estimate Adequate Platelet Morphology Normal Red Blood Cell Morphology Normal Sodium Level 141 MMOL/L (136-145) Potassium Level 3.4 MMOL/L (3.5-5.1) L Chloride Level 103 MMOL/L (98-107) Carbon Dioxide Level 29 MMOL/L (21-32) Anion Gap 10 mmol/L (5-15) Blood Urea Nitrogen 28 mg/dL (7-18) H Creatinine 0.7 MG/DL (0.55-1.30) Estimat Glomerular Filtration Rate > 60 mL/min (>60) Glucose Level 134 MG/DL (74-106) H Calcium Level 9.0 MG/DL (8.5-10.1) Phosphorus Level 3.8 MG/DL (2.5-4.9) Magnesium Level 2.5 MG/DL (1.8-2.4) H Total Bilirubin 0.4 MG/DL (0.2-1.0) Direct Bilirubin 0.1 MG/DL (0.0-0.3) Aspartate Amino Transf (AST/SGOT) 38 U/L (15-37) H Alanine Aminotransferase (ALT/SGPT) 54 U/L (12-78) Alkaline Phosphatase 84 U/L (46-116) Total Protein 7.5 G/DL (6.4-8.2) Albumin 2.7 G/DL (3.4-5.0) L Globulin 4.8 g/dL Albumin/Globulin Ratio 0.6 (1.0-2.7) L Arterial Blood pH 7.476 (7.350-7.450) Arterial Blood Partial Pressure CO2 34.6 mmHg (35.0-45.0) L Arterial Blood Partial Pressure O2 98.9 mmHg (75.0-100.0) Arterial Blood HCO3 25.0 mmol/L (22.0-26.0) Arterial Blood Oxygen Saturation 97.3 % (95-100) Arterial Blood Base Excess 1.8 (-2-2) Raghavendra Test Positive Objective HEAD AND NECK: Mild JVD. LUNGS: Decreased breath sounds. CARDIOVASCULAR: Regular S1 and S2 with no gallop or murmur. ABDOMEN: Soft. EXTREMITIES: No pitting edema. Link Damon MD Oct 05, 2020 21:53
[2020-10-05] MEDS: TraZODone HCl 25 mg tablet ORAL SCH (21:57)
[2020-10-05] MEDS: Maintenance Dose:Remdesivir 100mg/NS 230ml x 4 Doses IV SCH ×2 (21:57)
--- NOTE | 2020-10-05 23:32 | Infectious Diseases Prog Note ---
Assessment/Plan Assessment/Plan ASSESSMENT AND PLAN: 1. covid-19 infection with hypoxia, ? cap, ? sepsis, leukocytosis and fevers - dexamethasone and remdesivir - ceftriaxone and azithromycin - f/u on labs and chest x-ray - monitor hypoxia 2. No other significant past medical history. 3. Social history is negative. 4. Family history is noncontributory. 5. MAR is noted. 6. Case was discussed with RN. 7. Continue treatment per primary consultants. Subjective Constitutional: Reports: other; Denies: fever HEENT: Reports: congestion - less Respiratory: Reports: shortness of breath - less Cardiovascular: Denies: chest pain Gastrointestinal/Abdominal: Denies: nausea, vomiting, diarrhea Genitourinary: Reports: other - no bahena Neurologic: Denies: headache Psychiatric: Denies: depression Skin: Denies: rash Hematologic: Denies: bleeding Musculoskeletal: Denies: pain Allergies: Coded Allergies: No Known Allergies (Unverified , 10/02/20) Objective Last 24 Hour Vital Signs Date Time Temp Pulse Resp B/P (MAP) Pulse Ox O2 Delivery O2 Flow Rate FiO2 10/05/20 21:00 Nasal Cannula 4.0 10/05/20 20:00 97.9 88 17 124/74 (91) 93 10/05/20 18:53 97.0 10/05/20 16:00 97.9 61 22 131/79 (96) 95 10/05/20 15:48 97.0 10/05/20 12:00 97.3 72 20 136/70 (92) 93 10/05/20 09:00 Nasal Cannula 4.0 10/05/20 08:00 97.0 61 20 119/65 (83) 95 10/05/20 04:00 97.5 59 20 137/68 (91) 93 10/05/20 00:00 97.4 65 20 134/71 (92) 93 10/04/20 23:47 Nasal Cannula 4.0 Height (Feet): 5 Height (Inches): 4.00 Weight (Pounds): 150 General Appearance: no acute distress HEENT: normocephalic, atraumatic, anicteric, mucous membranes moist Respiratory/Chest: crackles/rales, rhonchi - bilaterally Cardiovascular: normal rate, regular rhythm, no gallop/murmur, no JVD Abdomen: normal bowel sounds, soft, non tender, no organomegaly, non distended Genitourinary: other - no bahena Extremities: no cyanosis Skin: no rash Neurologic/Psychiatric: meat slicer II-XII grossly normal, alert, oriented x 3, responsive Lymphatic: no neck adenopathy Musculoskeletal: no effusion Chest x-ray - 10/02/20 - Procedure: XRAY Chest 1v Indication: Cough Technique: One view of the chest Comparison: none Findings: There are bilateral mid and lower lung streaky infiltrates in a peribronchovascular distribution. The heart size is upper limits normal. There is torturous ectatic and calcified. Impression: Bilateral infiltrates, likely multifocal pneumonia, likely viral Microbiology Date/Time Source Procedure Growth Status 10/02/20 10:45 Urine,Clean Catch Urine Culture - Preliminary NO GROWTH Resulted 10/02/20 10:15 Nasopharynx SARS-CoV-2 RdRp Gene Assay - Final Complete 10/02/20 10:15 Blood Blood Culture - Preliminary NO GROWTH AFTER 24 HOURS Resulted Laboratory Tests Test 10/05/20 05:45 10/05/20 14:25 White Blood Count 15.0 K/UL (4.8-10.8) H Red Blood Count 4.18 M/UL (4.20-5.40) L Hemoglobin 12.1 G/DL (12.0-16.0) Hematocrit 35.4 % (37.0-47.0) L Mean Corpuscular Volume 85 FL (80-99) Mean Corpuscular Hemoglobin 29.0 PG (27.0-31.0) Mean Corpuscular Hemoglobin Concent 34.2 G/DL (32.0-36.0) Red Cell Distribution Width 13.4 % (11.6-14.8) Platelet Count 351 K/UL (150-450) Mean Platelet Volume 9.0 FL (6.5-10.1) Neutrophils (%) (Auto) % (45.0-75.0) Lymphocytes (%) (Auto) % (20.0-45.0) Monocytes (%) (Auto) % (1.0-10.0) Eosinophils (%) (Auto) % (0.0-3.0) Basophils (%) (Auto) % (0.0-2.0) Differential Total Cells Counted 100 Neutrophils % (Manual) 84 % (45-75) H Lymphocytes % (Manual) 12 % (20-45) L Monocytes % (Manual) 4 % (1-10) Eosinophils % (Manual) 0 % (0-3) Basophils % (Manual) 0 % (0-2) Band Neutrophils 0 % (0-8) Platelet Estimate Adequate Platelet Morphology Normal Red Blood Cell Morphology Normal Sodium Level 141 MMOL/L (136-145) Potassium Level 3.4 MMOL/L (3.5-5.1) L Chloride Level 103 MMOL/L (98-107) Carbon Dioxide Level 29 MMOL/L (21-32) Anion Gap 10 mmol/L (5-15) Blood Urea Nitrogen 28 mg/dL (7-18) H Creatinine 0.7 MG/DL (0.55-1.30) Estimat Glomerular Filtration Rate > 60 mL/min (>60) Glucose Level 134 MG/DL (74-106) H Calcium Level 9.0 MG/DL (8.5-10.1) Phosphorus Level 3.8 MG/DL (2.5-4.9) Magnesium Level 2.5 MG/DL (1.8-2.4) H Total Bilirubin 0.4 MG/DL (0.2-1.0) Direct Bilirubin 0.1 MG/DL (0.0-0.3) Aspartate Amino Transf (AST/SGOT) 38 U/L (15-37) H Alanine Aminotransferase (ALT/SGPT) 54 U/L (12-78) Alkaline Phosphatase 84 U/L (46-116) Total Protein 7.5 G/DL (6.4-8.2) Albumin 2.7 G/DL (3.4-5.0) L Globulin 4.8 g/dL Albumin/Globulin Ratio 0.6 (1.0-2.7) L Arterial Blood pH 7.476 (7.350-7.450) Arterial Blood Partial Pressure CO2 34.6 mmHg (35.0-45.0) L Arterial Blood Partial Pressure O2 98.9 mmHg (75.0-100.0) Arterial Blood HCO3 25.0 mmol/L (22.0-26.0) Arterial Blood Oxygen Saturation 97.3 % (95-100) Arterial Blood Base Excess 1.8 (-2-2) Raghavendra Test Positive Current Medications Medications (Trade) Dose Ordered Sig/Libertad Route PRN Reason Start Time Stop Time Status Last Admin Dose Admin Acetaminophen (Tylenol) 650 mg Q6H PRN ORAL Temp >100.5 10/02/20 17:15 11/01/20 17:14 10/05/20 15:18 Acetaminophen (Tylenol) 650 mg Q6H PRN ORAL For Pain 10/02/20 17:15 11/01/20 17:14 10/05/20 18:23 Albuterol/ Ipratropium (Combivent Respimat) 1 puff Q4HRT INH 10/02/20 19:00 11/01/20 18:59 10/05/20 23:07 Azithromycin (Zithromax) 500 mg DAILY ORAL 10/04/20 09:00 10/11/20 08:59 10/05/20 13:47 Ceftriaxone Sodium 1 gm/ Dextrose 50 ml @ 100 mls/hr Q24H IVPB 10/03/20 21:00 10/10/20 20:59 10/05/20 20:17 Dexamethasone Sodium Phosphate (Decadron 10mg/ ml Inj) 6 mg DAILY IV 10/03/20 09:00 10/11/20 12:00 10/05/20 13:47 Enoxaparin Sodium (Lovenox) 40 mg DAILY SUBQ 10/03/20 09:00 01/01/21 08:59 10/05/20 13:50 Furosemide (Lasix) 40 mg DAILY IV 10/03/20 09:00 11/02/20 08:59 10/05/20 13:51 Potassium Chloride (K-Dur) 40 meq DAILY ORAL 10/06/20 09:00 01/04/21 08:59 Remdesivir 100 mg/ Sodium Chloride 250 ml @ 250 mls/hr Q24H IV 10/04/20 22:00 10/07/20 22:59 10/05/20 21:57 Trazodone HCl (Desyrel) 25 mg BEDTIME ORAL 10/03/20 21:00 11/02/20 20:59 10/05/20 21:57 Cristiano Grant MD Oct 05, 2020 23:32
[2020-10-06] VITALS (7 sets, daily range): BP systolic 113–138; BP diastolic 64–77
--- NOTE | 2020-10-06 07:13 | NUR ---
NURSE HAND-OFF: Important Events on Shift:[medicated for headache, had normal BM] Patient Status: stable Diet: [Regular] Pending Orders: [] Pending Results/Labs:[] Pending MD notification:[] Latest Vital Signs: Temperature 96.2 , Pulse 67 , B/P 138 /77 , Respiratory Rate 16 , O2 SAT 93 , Nasal Cannula, O2 Flow Rate 4.0 . Vital Sign Comment: [] Latest Hugo Fall Score: 20 Fall Risk: Low Risk Safety Measures: Call light Within Reach, Bed Alarm Zone 1, Side Rails Side Rails x2, Bed position Low and Locked. Fall Precautions: Patient Fall Education Report given to [Tayo Mitchell RN].
--- NOTE | 2020-10-06 07:45 | NUR ---
NURSE NOTES: RN received the report from YEN Hernandez. RN received the patient in bed, aaoX4, verbally responsive, no pain noted. RN educated the patient to take deep slow breaths. Patient able to control breathing rate and depth when encouraged. IV intact, patent, flushed, dry and asymptomatic. RN communicated the plan of care with the patient. Bed in lowest position and locked. Call light within reach. RN will continue to monitor.
[2020-10-06] MEDS: Azithromycin 250mg tab ORAL SCH (09:04)
[2020-10-06] MEDS: dexAMETHasone 10mg/ml Inj IV SCH (09:05)
[2020-10-06] MEDS: Enoxaparin 40mg Inj SUBQ SCH (09:06)
[2020-10-06 09:37] LABS: ALANINE AMINOTRANSFERASE 44 U/L (12-78); ALBUMIN 2.9 G/DL (3.4-5.0); ALBUMIN/GLOBULIN RATIO 0.6 (1.0-2.7); ALKALINE PHOSPHATASE 80 U/L (46-116); ANION GAP 11 mmol/L (5-15); ASPARTATE AMINO TRANSFERASE 21 U/L (15-37); BILIRUBIN,TOTAL 0.5 MG/DL (0.2-1.0); BLOOD UREA NITROGEN 26 mg/dL (7-18); CALCIUM 8.8 MG/DL (8.5-10.1); CARBON DIOXIDE 26 MMOL/L (21-32); CHLORIDE 102 MMOL/L (98-107); CREATININE 0.7 MG/DL (0.55-1.30); POTASSIUM 3.9 MMOL/L (3.5-5.1); SODIUM 139 MMOL/L (136-145)
[2020-10-06 09:38] LABS: BASOPHILS % (AUTO) 0.6 % (0.0-2.0); EOSINOPHILS % (AUTO) 0.1 % (0.0-3.0); HEMATOCRIT 40.9 % (37.0-47.0); HEMOGLOBIN 13.9 G/DL (12.0-16.0); LYMPHOCYTES % (AUTO) 12.6 % (20.0-45.0); MEAN CORPUSCULAR VOLUME 86 FL (80-99); MONOCYTES % (AUTO) 4.6 % (1.0-10.0); NEUTROPHILS % (AUTO) 82.2 % (45.0-75.0); PLATELET COUNT 370 K/UL (150-450); RED BLOOD COUNT 4.76 M/UL (4.20-5.40); RED CELL DISTRIBUTION WIDTH 13.3 % (11.6-14.8); WHITE BLOOD COUNT 12.3 K/UL (4.8-10.8)
--- NOTE | 2020-10-06 10:14 | Diagnostic Imaging Report ---
EXAM: XR Chest, 1 View CLINICAL HISTORY: INFECT TECHNIQUE: Frontal view of the chest. COMPARISON: Chest radiograph on 10/02/2020 FINDINGS: Hardware: None. Lungs/pleura: Similar to slightly increased patchy opacities throughout the lungs. No pleural effusion or pneumothorax. Heart/mediastinum: Normal. No cardiomegaly. Soft tissues: Unremarkable. Bones: No acute fracture. Upper abdomen: Normal. IMPRESSION: Similar to slightly increased patchy opacity throughout the lungs, concerning for an infectious/inflammatory process such as Covid 19 infection.
--- NOTE | 2020-10-06 12:19 | Pulmonology Progress Note ---
Subjective Constitutional: Reports: other; Denies: fever HEENT: Repors: no symptoms Respiratory: Reports: dry cough, shortness of breath Cardiovascular: Reports: no symptoms Gastrointestinal/Abdominal: Denies: nausea, vomiting, diarrhea Psychiatric: Denies: depression Skin: Denies: rash Musculoskeletal: Denies: pain Allergies: Coded Allergies: No Known Allergies (Unverified , 10/02/20) All Systems: reviewed and negative except above Objective Last 24 Hour Vital Signs Date Time Temp Pulse Resp B/P (MAP) Pulse Ox O2 Delivery O2 Flow Rate FiO2 10/06/20 12:00 98.6 62 22 113/64 (80) 96 10/06/20 08:00 96.6 60 20 131/77 (95) 93 10/06/20 04:05 96.2 67 16 138/77 (97) 93 10/06/20 00:02 97.9 59 16 118/66 (83) 94 10/05/20 21:00 Nasal Cannula 4.0 10/05/20 20:00 97.9 88 17 124/74 (91) 93 10/05/20 18:53 97.0 10/05/20 16:00 97.9 61 22 131/79 (96) 95 10/05/20 15:48 97.0 Intake and Output 10/05/20 10/06/20 19:00 07:00 Intake Total 1000 ml 300 ml Balance 1000 ml 300 ml Intake Oral 1000 ml IV Total 300 ml # Voids 2 5 # Bowel Movements 1 General Appearance: no acute distress HEENT: atraumatic Respiratory: lungs clear Cardiovascular: normal rate, regular rhythm Abdomen: soft, non tender Laboratory Tests 10/05/20 14:25: Arterial Blood pH 7.476H, Arterial Blood Partial Pressure CO2 34.6L, Arterial Blood Partial Pressure O2 98.9, Arterial Blood HCO3 25.0, Arterial Blood Oxygen Saturation 97.3, Arterial Blood Base Excess 1.8, Raghavendra Test Positive 10/06/20 07:50: White Blood Count 12.3H, Red Blood Count 4.76, Hemoglobin 13.9, Hematocrit 40.9, Mean Corpuscular Volume 86, Mean Corpuscular Hemoglobin 29.2, Mean Corpuscular Hemoglobin Concent 34.0, Red Cell Distribution Width 13.3, Platelet Count 370, Mean Platelet Volume 8.6, Neutrophils (%) (Auto) 82.2H, Lymphocytes (%) (Auto) 12.6L, Monocytes (%) (Auto) 4.6, Eosinophils (%) (Auto) 0.1, Basophils (%) (Auto) 0.6, Sodium Level 139, Potassium Level 3.9, Chloride Level 102, Carbon Dioxide Level 26, Anion Gap 11, Blood Urea Nitrogen 26H, Creatinine 0.7, Estimat Glomerular Filtration Rate > 60, Glucose Level 150H, Calcium Level 8.8, Phosphorus Level 3.0, Magnesium Level 2.6H, Total Bilirubin 0.5, Direct Bilirubin 0.2, Aspartate Amino Transf (AST/SGOT) 21, Alanine Aminotransferase (ALT/SGPT) 44, Alkaline Phosphatase 80, Total Protein 7.6, Albumin 2.9L, Globulin 4.7, Albumin/Globulin Ratio 0.6L Current Medications Medications (Trade) Dose Ordered Sig/Libertad Route PRN Reason Start Time Stop Time Status Last Admin Dose Admin Acetaminophen (Tylenol) 650 mg Q6H PRN ORAL For Pain 10/02/20 17:15 11/01/20 17:14 10/06/20 00:31 Acetaminophen (Tylenol) 650 mg Q6H PRN ORAL Temp >100.5 10/02/20 17:15 11/01/20 17:14 10/05/20 15:18 Albuterol/ Ipratropium (Combivent Respimat) 1 puff Q4HRT INH 10/02/20 19:00 11/01/20 18:59 10/06/20 11:35 Azithromycin (Zithromax) 500 mg DAILY ORAL 10/04/20 09:00 10/11/20 08:59 10/06/20 09:04 Ceftriaxone Sodium 1 gm/ Dextrose 50 ml @ 100 mls/hr Q24H IVPB 10/03/20 21:00 10/10/20 20:59 10/05/20 20:17 Dexamethasone Sodium Phosphate (Decadron 10mg/ ml Inj) 6 mg DAILY IV 10/03/20 09:00 10/11/20 12:00 10/06/20 09:05 Enoxaparin Sodium (Lovenox) 40 mg DAILY SUBQ 10/03/20 09:00 01/01/21 08:59 10/06/20 09:06 Furosemide (Lasix) 40 mg DAILY IV 10/03/20 09:00 11/02/20 08:59 10/06/20 09:05 Potassium Chloride (K-Dur) 40 meq DAILY ORAL 10/06/20 09:00 01/04/21 08:59 10/06/20 09:04 Remdesivir 100 mg/ Sodium Chloride 250 ml @ 250 mls/hr Q24H IV 10/04/20 22:00 10/07/20 22:59 10/05/20 21:57 Trazodone HCl (Desyrel) 25 mg BEDTIME ORAL 10/03/20 21:00 11/02/20 20:59 10/05/20 21:57 Assessment/Plan Assessment/Plan Assessment 1. Bilateral pneumonia. 2. COVID-19 pneumonia, confirmed on nasopharyngeal swab. 3. Hypoxemia. 4. hx of asthma - PLAN: On remdesivir per ID (10/03-) On Broad-spectrum antibiotics on Decadron currently saturating at 93% on 4L NC keep SaO2 >92% On albuterol Puff PRN We will follow carefully. The care for this patient was discussed with my supervising physician Dorothy Martinez MR TEACHER Oct 06, 2020 12:19
--- NOTE | 2020-10-06 12:33 | Internal Med Progress Note ---
Subjective Physician Name Manuel Rajput Attending Physician Manuel Rajput M.D. Current Medications Medications (Trade) Dose Ordered Sig/Libertad Route PRN Reason Start Time Stop Time Status Last Admin Dose Admin Acetaminophen (Tylenol) 650 mg Q6H PRN ORAL For Pain 10/02/20 17:15 11/01/20 17:14 10/06/20 00:31 Acetaminophen (Tylenol) 650 mg Q6H PRN ORAL Temp >100.5 10/02/20 17:15 11/01/20 17:14 10/05/20 15:18 Albuterol/ Ipratropium (Combivent Respimat) 1 puff Q4HRT INH 10/02/20 19:00 11/01/20 18:59 10/06/20 11:35 Azithromycin (Zithromax) 500 mg DAILY ORAL 10/04/20 09:00 10/11/20 08:59 10/06/20 09:04 Ceftriaxone Sodium 1 gm/ Dextrose 50 ml @ 100 mls/hr Q24H IVPB 10/03/20 21:00 10/10/20 20:59 10/05/20 20:17 Dexamethasone Sodium Phosphate (Decadron 10mg/ ml Inj) 6 mg DAILY IV 10/03/20 09:00 10/11/20 12:00 10/06/20 09:05 Enoxaparin Sodium (Lovenox) 40 mg DAILY SUBQ 10/03/20 09:00 01/01/21 08:59 10/06/20 09:06 Furosemide (Lasix) 40 mg DAILY IV 10/03/20 09:00 11/02/20 08:59 10/06/20 09:05 Potassium Chloride (K-Dur) 40 meq DAILY ORAL 10/06/20 09:00 01/04/21 08:59 10/06/20 09:04 Remdesivir 100 mg/ Sodium Chloride 250 ml @ 250 mls/hr Q24H IV 10/04/20 22:00 10/07/20 22:59 10/05/20 21:57 Trazodone HCl (Desyrel) 25 mg BEDTIME ORAL 10/03/20 21:00 11/02/20 20:59 10/05/20 21:57 Allergies: Coded Allergies: No Known Allergies (Unverified , 10/02/20) ROS Limited/Unobtainable: No Constitutional: Reports: weakness HEENT: Denies: no symptoms, eye pain, blurred vision, tearing, double vision, ear pain, ear discharge, nose pain, nose congestion, throat pain, throat swelling, mouth pain, mouth swelling, other Cardiovascular: Denies: no symptoms, chest pain, edema, irregular heart rate, lightheadedness, palpitations, syncope, other Respiratory: Denies: no symptoms, cough, orthopnea, shortness of breath, SOB with excertion, SOB at rest, sputum, stridor, wheezing, other Gastrointestinal/Abdominal: Denies: no symptoms, abdomen distended, abdominal p ain, black stools, tarry stools, blood in stool, constipated, diarrhea, difficulty swallowing, nausea, poor appetite, poor fluid intake, rectal bleeding, vomiting, other Genitourinary: Denies: no symptoms, burning, discharge, frequency, flank pain, hematuria, incontinence, pain, urgency, other Neurologic/Psychiatric: Denies: no symptoms, anxiety, depressed, emotional problems, headache, numbness, paresthesia, pre-existing deficit, seizure, tingling, tremors, weakness, other Objective Last Vital Signs Date Time Temp Pulse Resp B/P (MAP) Pulse Ox O2 Delivery O2 Flow Rate FiO2 10/06/20 12:00 98.6 62 22 113/64 (80) 96 10/05/20 21:00 Nasal Cannula 4.0 Laboratory Tests Test 10/05/20 14:25 10/06/20 07:50 Arterial Blood pH 7.476 (7.350-7.450) Arterial Blood Partial Pressure CO2 34.6 mmHg (35.0-45.0) L Arterial Blood Partial Pressure O2 98.9 mmHg (75.0-100.0) Arterial Blood HCO3 25.0 mmol/L (22.0-26.0) Arterial Blood Oxygen Saturation 97.3 % (95-100) Arterial Blood Base Excess 1.8 (-2-2) Raghavendra Test Positive White Blood Count 12.3 K/UL (4.8-10.8) H Red Blood Count 4.76 M/UL (4.20-5.40) Hemoglobin 13.9 G/DL (12.0-16.0) Hematocrit 40.9 % (37.0-47.0) Mean Corpuscular Volume 86 FL (80-99) Mean Corpuscular Hemoglobin 29.2 PG (27.0-31.0) Mean Corpuscular Hemoglobin Concent 34.0 G/DL (32.0-36.0) Red Cell Distribution Width 13.3 % (11.6-14.8) Platelet Count 370 K/UL (150-450) Mean Platelet Volume 8.6 FL (6.5-10.1) Neutrophils (%) (Auto) 82.2 % (45.0-75.0) H Lymphocytes (%) (Auto) 12.6 % (20.0-45.0) L Monocytes (%) (Auto) 4.6 % (1.0-10.0) Eosinophils (%) (Auto) 0.1 % (0.0-3.0) Basophils (%) (Auto) 0.6 % (0.0-2.0) Sodium Level 139 MMOL/L (136-145) Potassium Level 3.9 MMOL/L (3.5-5.1) Chloride Level 102 MMOL/L (98-107) Carbon Dioxide Level 26 MMOL/L (21-32) Anion Gap 11 mmol/L (5-15) Blood Urea Nitrogen 26 mg/dL (7-18) H Creatinine 0.7 MG/DL (0.55-1.30) Estimat Glomerular Filtration Rate > 60 mL/min (>60) Glucose Level 150 MG/DL (74-106) H Calcium Level 8.8 MG/DL (8.5-10.1) Phosphorus Level 3.0 MG/DL (2.5-4.9) Magnesium Level 2.6 MG/DL (1.8-2.4) H Total Bilirubin 0.5 MG/DL (0.2-1.0) Direct Bilirubin 0.2 MG/DL (0.0-0.3) Aspartate Amino Transf (AST/SGOT) 21 U/L (15-37) Alanine Aminotransferase (ALT/SGPT) 44 U/L (12-78) Alkaline Phosphatase 80 U/L (46-116) Total Protein 7.6 G/DL (6.4-8.2) Albumin 2.9 G/DL (3.4-5.0) L Globulin 4.7 g/dL Albumin/Globulin Ratio 0.6 (1.0-2.7) L Intake and Output 10/05/20 10/06/20 19:00 07:00 Intake Total 1000 ml 300 ml Balance 1000 ml 300 ml Intake Oral 1000 ml IV Total 300 ml # Voids 2 5 # Bowel Movements 1 Objective General appearance: alert, cooperative, no distress, appears stated age Head: Normocephalic, without obvious abnormality, atraumatic Eyes: conjunctivae/corneas clear. PERRL, EOM's intact. Fundi benign Throat: Lips, mucosa, and tongue normal. Teeth and gums normal Neck: supple, symmetrical, trachea midline, no adenopathy, thyroid: not enlarg ed, symmetric, no tenderness/mass/nodules, no carotid bruit and no JVD Lungs: clear to auscultation bilaterally Heart: regular rate and rhythm, S1, S2 normal, no murmur, click, rub or gallop Abdomen: soft, non-tender. Bowel sounds normal. No masses, no organomegaly Extremities: extremities normal, atraumatic, no cyanosis or edema Pulses: 2+ and symmetric Skin: Skin color, texture, turgor normal. No rashes or lesions Neurologic: Grossly normal Assessment/Plan Assessment/Plan #COVID pneumonia #hypoxemic resp failure #sepsis - admit inpatient - ID eval - pulm eval - dexamethsone - defer remdesevir to ID - breathing tx - supplemental O2 - DCT ppx - monitor labs - avoid nephrotoxins Manuel Rajput M.D. Oct 06, 2020 12:33
--- NOTE | 2020-10-06 19:46 | NUR ---
NURSE HAND-OFF: Important Events on Shift:titrated NC t o 3L Patient Status: stable, getting better Diet: regular Pending Orders: n/a Pending Results/Labs:n/a Pending MD notification:n/a Latest Vital Signs: Temperature 98.1 , Pulse 64 , B/P 120 /69 , Respiratory Rate 20 , O2 SAT 94 , Nasal Cannula, O2 Flow Rate 4.0 . Vital Sign Comment: stable Latest Hugo Fall Score: 20 Fall Risk: Low Risk Safety Measures: Call light Within Reach, Bed Alarm Zone 1, Side Rails Side Rails x2, Bed position Low and Locked. Fall Precautions: Patient Fall Education Report given to David.
--- NOTE | 2020-10-06 20:00 | NUR ---
NURSE NOTES: Patient received in bed, awake and alert. No signs of acute distress. Appears more energetic. On 3L O2 via NC. Will continue with plan of care.
[2020-10-06] MEDS: cefTRIAXone 1 GM in D5W 50 ML IVPB SCH (20:23)
[2020-10-06] MEDS: TraZODone HCl 25 mg tablet ORAL SCH (21:01)
[2020-10-06] MEDS: Maintenance Dose:Remdesivir 100mg/NS 230ml x 4 Doses IV SCH ×2 (21:01)
[2020-10-07 04:38] VITALS: BP 118/67
--- NOTE | 2020-10-07 07:57 | NUR ---
NURSE HAND-OFF: Important Events on Shift:[1 soft BM, uneventful] Patient Status: [stable] Diet: [Regular] Pending Orders: [titrate o2] Pending Results/Labs:[] Pending MD notification:[] Latest Vital Signs: Temperature 98.2 , Pulse 61 , B/P 118 /67 , Respiratory Rate 20 , O2 SAT 94 , Nasal Cannula, O2 Flow Rate 3.0 . Vital Sign Comment: [] Latest Hugo Fall Score: 20 Fall Risk: Low Risk Safety Measures: Call light Within Reach, Bed Alarm Zone 1, Side Rails Side Rails x2, Bed position Low and Locked. Fall Precautions: Patient Fall Education Report given to [Vijay SAMPSON RN].
[2020-10-07 08:00] VITALS: BP 115/72
--- NOTE | 2020-10-07 08:00 | NUR ---
NURSE NOTES: Patient alert and oriented x4, breathing even and unlabored on room air, no s/s or complaints of pain, bed alarm on, side rails upx2, bed in lowest and locked position. Call lightwithin reach.
[2020-10-07] MEDS: Azithromycin 250mg tab ORAL SCH (09:22)
[2020-10-07] MEDS: dexAMETHasone 10mg/ml Inj IV SCH (09:23)
[2020-10-07] MEDS: Enoxaparin 40mg Inj SUBQ SCH (09:25)
[2020-10-07 10:32] LABS: BASOPHILS % (AUTO) 0.8 % (0.0-2.0); EOSINOPHILS % (AUTO) 0.1 % (0.0-3.0); HEMATOCRIT 42.2 % (37.0-47.0); HEMOGLOBIN 13.9 G/DL (12.0-16.0); LYMPHOCYTES % (AUTO) 15.7 % (20.0-45.0); MEAN CORPUSCULAR VOLUME 88 FL (80-99); MONOCYTES % (AUTO) 4.5 % (1.0-10.0); NEUTROPHILS % (AUTO) 78.9 % (45.0-75.0); PLATELET COUNT 415 K/UL (150-450); RED CELL DISTRIBUTION WIDTH 12.4 % (11.6-14.8); WHITE BLOOD COUNT 13.7 K/UL (4.8-10.8)
[2020-10-07 10:40] LABS: ALANINE AMINOTRANSFERASE 42 U/L (12-78); ALBUMIN 2.9 G/DL (3.4-5.0); ALBUMIN/GLOBULIN RATIO 0.6 (1.0-2.7); ALKALINE PHOSPHATASE 78 U/L (46-116); ANION GAP 9 mmol/L (5-15); ASPARTATE AMINO TRANSFERASE 21 U/L (15-37); BILIRUBIN,TOTAL 0.5 MG/DL (0.2-1.0); BLOOD UREA NITROGEN 26 mg/dL (7-18); CALCIUM 8.3 MG/DL (8.5-10.1); CARBON DIOXIDE 28 MMOL/L (21-32); CHLORIDE 101 MMOL/L (98-107); CREATININE 0.8 MG/DL (0.55-1.30); POTASSIUM 4.3 MMOL/L (3.5-5.1); SODIUM 138 MMOL/L (136-145)
--- NOTE | 2020-10-07 10:50 | Cardiac Electrophysiology PN ---
Assessment/Plan Assessment/Plan 1. Elevated BNP of 633 and shortness of breath. The patient may have some component of congestive heart failure, even though primarily it is due to the patient's COVID pneumonia. EF 65% on Lasix 40 iv daily 2. COVID pneumonia on dexamethasone and Lovenox and 3 liter NC 3. Hypokalemia. Potassium was replaced. Subjective Subjective On 3 liter nasal cannula in Covid isolation. On Lasix 40 iv daily. VSS. Objective Last 24 Hour Vital Signs Date Time Temp Pulse Resp B/P (MAP) Pulse Ox O2 Delivery O2 Flow Rate FiO2 10/07/20 08:00 98.5 63 18 115/72 (86) 94 10/07/20 04:38 98.2 61 20 118/67 (84) 94 10/06/20 23:17 98.7 58 20 118/77 (91) 93 10/06/20 21:00 Nasal Cannula 3.0 10/06/20 20:00 96.8 79 20 116/76 (89) 93 10/06/20 16:00 98.1 64 20 120/69 (86) 94 10/06/20 12:00 98.6 62 22 113/64 (80) 96 Intake and Output 10/06/20 10/07/20 19:00 07:00 Intake Total 1000 ml 1000 ml Balance 1000 ml 1000 ml Intake Oral 1000 ml 700 ml IV Total 300 ml # Voids 2 3 # Bowel Movements 1 1 Laboratory Tests Test 10/07/20 10:10 White Blood Count 13.7 K/UL (4.8-10.8) H Red Blood Count 4.80 M/UL (4.20-5.40) Hemoglobin 13.9 G/DL (12.0-16.0) Hematocrit 42.2 % (37.0-47.0) Mean Corpuscular Volume 88 FL (80-99) Mean Corpuscular Hemoglobin 29.0 PG (27.0-31.0) Mean Corpuscular Hemoglobin Concent 33.1 G/DL (32.0-36.0) Red Cell Distribution Width 12.4 % (11.6-14.8) Platelet Count 415 K/UL (150-450) Mean Platelet Volume 8.2 FL (6.5-10.1) Neutrophils (%) (Auto) 78.9 % (45.0-75.0) H Lymphocytes (%) (Auto) 15.7 % (20.0-45.0) L Monocytes (%) (Auto) 4.5 % (1.0-10.0) Eosinophils (%) (Auto) 0.1 % (0.0-3.0) Basophils (%) (Auto) 0.8 % (0.0-2.0) Sodium Level 138 MMOL/L (136-145) Potassium Level 4.3 MMOL/L (3.5-5.1) Chloride Level 101 MMOL/L (98-107) Carbon Dioxide Level 28 MMOL/L (21-32) Anion Gap 9 mmol/L (5-15) Blood Urea Nitrogen 26 mg/dL (7-18) H Creatinine 0.8 MG/DL (0.55-1.30) Estimat Glomerular Filtration Rate > 60 mL/min (>60) Glucose Level 133 MG/DL (74-106) H Calcium Level 8.3 MG/DL (8.5-10.1) L Phosphorus Level 3.5 MG/DL (2.5-4.9) Magnesium Level 2.5 MG/DL (1.8-2.4) H Total Bilirubin 0.5 MG/DL (0.2-1.0) Direct Bilirubin < 0.1 MG/DL (0.0-0.3) Aspartate Amino Transf (AST/SGOT) 21 U/L (15-37) Alanine Aminotransferase (ALT/SGPT) 42 U/L (12-78) Alkaline Phosphatase 78 U/L (46-116) Total Protein 7.4 G/DL (6.4-8.2) Albumin 2.9 G/DL (3.4-5.0) L Globulin 4.5 g/dL Albumin/Globulin Ratio 0.6 (1.0-2.7) L Objective HEAD AND NECK: Mild JVD. LUNGS: Decreased breath sounds. CARDIOVASCULAR: Regular S1 and S2 with no gallop or murmur. ABDOMEN: Soft. EXTREMITIES: No pitting edema. Link Damon MD Oct 07, 2020 10:50
[2020-10-07 12:00] VITALS: BP 112/77
--- NOTE | 2020-10-07 14:03 | Pulmonology Progress Note ---
Subjective ROS Limited/Unobtainable: No Constitutional: Denies: fever HEENT: Repors: no symptoms Respiratory: Reports: dry cough, shortness of breath Cardiovascular: Reports: no symptoms Gastrointestinal/Abdominal: Denies: nausea, vomiting, diarrhea Psychiatric: Denies: depression Skin: Denies: rash Musculoskeletal: Denies: pain Allergies: Coded Allergies: No Known Allergies (Unverified , 10/02/20) All Systems: reviewed and negative except above Objective Last 24 Hour Vital Signs Date Time Temp Pulse Resp B/P (MAP) Pulse Ox O2 Delivery O2 Flow Rate FiO2 10/07/20 08:00 98.5 63 18 115/72 (86) 94 10/07/20 04:38 98.2 61 20 118/67 (84) 94 10/06/20 23:17 98.7 58 20 118/77 (91) 93 10/06/20 21:00 Nasal Cannula 3.0 10/06/20 20:00 96.8 79 20 116/76 (89) 93 10/06/20 16:00 98.1 64 20 120/69 (86) 94 Intake and Output 10/06/20 10/07/20 19:00 07:00 Intake Total 1000 ml 1000 ml Balance 1000 ml 1000 ml Intake Oral 1000 ml 700 ml IV Total 300 ml # Voids 2 3 # Bowel Movements 1 1 Objective 10/07 saturating at 93% on 3L NC 10/04 saturating at 96% on 4L NC 10/03 saturating at 94-96% on 4L NC General Appearance: no acute distress HEENT: atraumatic Respiratory: lungs clear Cardiovascular: normal rate, regular rhythm Abdomen: soft, non tender Laboratory Tests 10/07/20 10:10: White Blood Count 13.7H, Red Blood Count 4.80, Hemoglobin 13.9, Hematocrit 42.2, Mean Corpuscular Volume 88, Mean Corpuscular Hemoglobin 29.0, Mean Corpuscular Hemoglobin Concent 33.1, Red Cell Distribution Width 12.4, Platelet Count 415, Mean Platelet Volume 8.2, Neutrophils (%) (Auto) 78.9H, Lymphocytes (%) (Auto) 15.7L, Monocytes (%) (Auto) 4.5, Eosinophils (%) (Auto) 0.1, Basophils (%) (Auto) 0.8, Sodium Level 138, Potassium Level 4.3, Chloride Level 101, Carbon Dioxide Level 28, Anion Gap 9, Blood Urea Nitrogen 26H, Creatinine 0.8, Estimat Glomerular Filtration Rate > 60, Glucose Level 133H, Calcium Level 8.3L, Phosphorus Level 3.5, Magnesium Level 2.5H, Total Bilirubin 0.5, Direct Bilirubin < 0.1, Aspartate Amino Transf (AST/SGOT) 21, Alanine Aminotransferase (ALT/SGPT) 42, Alkaline Phosphatase 78, Total Protein 7.4, Albumin 2.9L, Globulin 4.5, Albumin/Globulin Ratio 0.6L Current Medications Medications (Trade) Dose Ordered Sig/Libertad Route PRN Reason Start Time Stop Time Status Last Admin Dose Admin Acetaminophen (Tylenol) 650 mg Q6H PRN ORAL For Pain 10/02/20 17:15 11/01/20 17:14 10/06/20 00:31 Acetaminophen (Tylenol) 650 mg Q6H PRN ORAL Temp >100.5 10/02/20 17:15 11/01/20 17:14 10/05/20 15:18 Albuterol/ Ipratropium (Combivent Respimat) 1 puff Q4HRT INH 10/02/20 19:00 11/01/20 18:59 10/07/20 11:12 Azithromycin (Zithromax) 500 mg DAILY ORAL 10/04/20 09:00 10/11/20 08:59 10/07/20 09:22 Ceftriaxone Sodium 1 gm/ Dextrose 50 ml @ 100 mls/hr Q24H IVPB 10/03/20 21:00 10/10/20 20:59 10/06/20 20:23 Dexamethasone Sodium Phosphate (Decadron 10mg/ ml Inj) 6 mg DAILY IV 10/03/20 09:00 10/11/20 12:00 10/07/20 09:23 Enoxaparin Sodium (Lovenox) 40 mg DAILY SUBQ 10/03/20 09:00 01/01/21 08:59 10/07/20 09:25 Furosemide (Lasix) 40 mg DAILY IV 10/03/20 09:00 11/02/20 08:59 10/07/20 09:22 Potassium Chloride (K-Dur) 40 meq DAILY ORAL 10/06/20 09:00 01/04/21 08:59 10/07/20 09:22 Remdesivir 100 mg/ Sodium Chloride 250 ml @ 250 mls/hr Q24H IV 10/04/20 22:00 10/07/20 22:59 10/06/20 21:01 Trazodone HCl (Desyrel) 25 mg BEDTIME ORAL 10/03/20 21:00 11/02/20 20:59 10/06/20 21:01 Assessment/Plan Assessment/Plan 1. Bilateral pneumonia. 2. COVID-19 pneumonia, confirmed on nasopharyngeal swab. - On remdesivir per ID (10/03-) - On Broad-spectrum antibiotics 3. Hypoxemia. - on Decadron - currently saturating at 93% on 3L NC; titrate down as tolerated - keep SaO2 >90% 4. hx of asthma - on albuterol prn DVT ppx - Lovenox dc planning noted We will follow carefully. The care for this patient was discussed with my supervising physician Time spent for this case was approximately 31 minutes Darryn Hernandez Oct 07, 2020 14:03
[2020-10-07 16:00] VITALS: BP 116/74
--- NOTE | 2020-10-07 17:05 | NUR ---
CASE MANAGEMENT:REVIEW SI;BILATERAL COVID PNA 98.7 58 20 118/77 93% 2L NC WBC 13.7 WBC 26 MAG 2.5 IS;K-DUR PO QD REMDESIVIR IV QD ZITHROMAX PO QD ROCEPHIN IV QD LASIX IV QD LOVENOX SQ QD DECADRON IV QD MED SURG STATUS DCP;FROM HOME
--- NOTE | 2020-10-07 17:06 | Infectious Diseases Prog Note ---
Assessment/Plan Assessment/Plan ASSESSMENT AND PLAN: 1. covid-19 infection with hypoxia, ? cap, ? sepsis, leukocytosis and fevers klebsiella uti - dexamethasone and remdesivir - ceftriaxone and azithromycin - monitor labs - monitor hypoxia - clinically improved, less sob, less O2 requirement 2. No other significant past medical history. 3. Social history is negative. 4. Family history is noncontributory. 5. MAR is noted. 6. Case was discussed with RN. 7. Continue treatment per primary consultants. Subjective Constitutional: Reports: fatigue, other - feels better ; Denies: fever HEENT: Reports: congestion - less Respiratory: Reports: shortness of breath - less Gastrointestinal/Abdominal: Denies: nausea, vomiting, diarrhea Genitourinary: Reports: other - no bahena ; Denies: dysuria, hematuria, frequency Neurologic: Denies: headache Psychiatric: Denies: depression Skin: Denies: rash Hematologic: Denies: bleeding Musculoskeletal: Denies: pain Allergies: Coded Allergies: No Known Allergies (Unverified , 10/02/20) Objective Last 24 Hour Vital Signs Date Time Temp Pulse Resp B/P (MAP) Pulse Ox O2 Delivery O2 Flow Rate FiO2 10/07/20 16:00 97.8 73 18 116/74 (88) 96 10/07/20 12:00 97.0 76 17 112/77 (89) 93 10/07/20 09:00 Nasal Cannula 2.0 10/07/20 08:00 98.5 63 18 115/72 (86) 94 10/07/20 04:38 98.2 61 20 118/67 (84) 94 10/06/20 23:17 98.7 58 20 118/77 (91) 93 10/06/20 21:00 Nasal Cannula 3.0 10/06/20 20:00 96.8 79 20 116/76 (89) 93 Height (Feet): 5 Height (Inches): 4.00 Weight (Pounds): 150 General Appearance: no acute distress HEENT: normocephalic, atraumatic, anicteric Respiratory/Chest: lungs clear, normal breath sounds, no respiratory distress, no accessory muscle use Cardiovascular: normal rate, regular rhythm, no gallop/murmur, no JVD Abdomen: normal bowel sounds, soft, non tender, no organomegaly, non distended Genitourinary: other - no bahena Extremities: no cyanosis Skin: no rash 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 The heart size is upper limits normal. There is torturous ectatic and calcified. Impression: Bilateral infiltrates, likely multifocal pneumonia, likely viral Chest x-ray - 10/06/20- IMPRESSION: Similar to slightly increased patchy opacity throughout the lungs, concerning for an infectious/inflammatory process such as Covid 19 infection. Microbiology Date/Time Source Procedure Growth Status 10/02/20 10:45 Urine,Clean Catch Urine Culture - Final Klebsiella Pneumoniae Mixed Urogenital Contaminants Complete 10/02/20 10:15 Nasopharynx SARS-CoV-2 RdRp Gene Assay - Final Complete 10/02/20 10:15 Blood Blood Culture - Final NO GROWTH AFTER 5 DAYS Complete Laboratory Tests Test 10/07/20 10:10 White Blood Count 13.7 K/UL (4.8-10.8) H Red Blood Count 4.80 M/UL (4.20-5.40) Hemoglobin 13.9 G/DL (12.0-16.0) Hematocrit 42.2 % (37.0-47.0) Mean Corpuscular Volume 88 FL (80-99) Mean Corpuscular Hemoglobin 29.0 PG (27.0-31.0) Mean Corpuscular Hemoglobin Concent 33.1 G/DL (32.0-36.0) Red Cell Distribution Width 12.4 % (11.6-14.8) Platelet Count 415 K/UL (150-450) Mean Platelet Volume 8.2 FL (6.5-10.1) Neutrophils (%) (Auto) 78.9 % (45.0-75.0) H Lymphocytes (%) (Auto) 15.7 % (20.0-45.0) L Monocytes (%) (Auto) 4.5 % (1.0-10.0) Eosinophils (%) (Auto) 0.1 % (0.0-3.0) Basophils (%) (Auto) 0.8 % (0.0-2.0) Sodium Level 138 MMOL/L (136-145) Potassium Level 4.3 MMOL/L (3.5-5.1) Chloride Level 101 MMOL/L (98-107) Carbon Dioxide Level 28 MMOL/L (21-32) Anion Gap 9 mmol/L (5-15) Blood Urea Nitrogen 26 mg/dL (7-18) H Creatinine 0.8 MG/DL (0.55-1.30) Estimat Glomerular Filtration Rate > 60 mL/min (>60) Glucose Level 133 MG/DL (74-106) H Calcium Level 8.3 MG/DL (8.5-10.1) L Phosphorus Level 3.5 MG/DL (2.5-4.9) Magnesium Level 2.5 MG/DL (1.8-2.4) H Total Bilirubin 0.5 MG/DL (0.2-1.0) Direct Bilirubin < 0.1 MG/DL (0.0-0.3) Aspartate Amino Transf (AST/SGOT) 21 U/L (15-37) Alanine Aminotransferase (ALT/SGPT) 42 U/L (12-78) Alkaline Phosphatase 78 U/L (46-116) Total Protein 7.4 G/DL (6.4-8.2) Albumin 2.9 G/DL (3.4-5.0) L Globulin 4.5 g/dL Albumin/Globulin Ratio 0.6 (1.0-2.7) L Current Medications Medications (Trade) Dose Ordered Sig/Libertad Route PRN Reason Start Time Stop Time Status Last Admin Dose Admin Acetaminophen (Tylenol) 650 mg Q6H PRN ORAL For Pain 10/02/20 17:15 11/01/20 17:14 10/06/20 00:31 Acetaminophen (Tylenol) 650 mg Q6H PRN ORAL Temp >100.5 10/02/20 17:15 11/01/20 17:14 10/05/20 15:18 Albuterol/ Ipratropium (Combivent Respimat) 1 puff Q4HRT INH 10/02/20 19:00 11/01/20 18:59 10/07/20 15:02 Azithromycin (Zithromax) 500 mg DAILY ORAL 10/04/20 09:00 10/11/20 08:59 10/07/20 09:22 Ceftriaxone Sodium 1 gm/ Dextrose 50 ml @ 100 mls/hr Q24H IVPB 10/03/20 21:00 10/10/20 20:59 10/06/20 20:23 Dexamethasone Sodium Phosphate (Decadron 10mg/ ml Inj) 6 mg DAILY IV 10/03/20 09:00 10/11/20 12:00 10/07/20 09:23 Enoxaparin Sodium (Lovenox) 40 mg DAILY SUBQ 10/03/20 09:00 01/01/21 08:59 10/07/20 09:25 Furosemide (Lasix) 40 mg DAILY IV 10/03/20 09:00 11/02/20 08:59 10/07/20 09:22 Potassium Chloride (K-Dur) 40 meq DAILY ORAL 10/06/20 09:00 01/04/21 08:59 10/07/20 09:22 Remdesivir 100 mg/ Sodium Chloride 250 ml @ 250 mls/hr Q24H IV 10/04/20 22:00 10/07/20 22:59 10/06/20 21:01 Trazodone HCl (Desyrel) 25 mg BEDTIME ORAL 10/03/20 21:00 11/02/20 20:59 10/06/20 21:01 Cristiano Grant MD Oct 07, 2020 17:06
--- NOTE | 2020-10-07 17:52 | Internal Med Progress Note ---
Subjective Physician Name Manuel Rajput Attending Physician Manuel Rajput M.D. Current Medications Medications (Trade) Dose Ordered Sig/Libertad Route PRN Reason Start Time Stop Time Status Last Admin Dose Admin Acetaminophen (Tylenol) 650 mg Q6H PRN ORAL For Pain 10/02/20 17:15 11/01/20 17:14 10/06/20 00:31 Acetaminophen (Tylenol) 650 mg Q6H PRN ORAL Temp >100.5 10/02/20 17:15 11/01/20 17:14 10/05/20 15:18 Albuterol/ Ipratropium (Combivent Respimat) 1 puff Q4HRT INH 10/02/20 19:00 11/01/20 18:59 10/07/20 17:42 Azithromycin (Zithromax) 500 mg DAILY ORAL 10/04/20 09:00 10/11/20 08:59 10/07/20 09:22 Ceftriaxone Sodium 1 gm/ Dextrose 50 ml @ 100 mls/hr Q24H IVPB 10/03/20 21:00 10/10/20 20:59 10/06/20 20:23 Dexamethasone Sodium Phosphate (Decadron 10mg/ ml Inj) 6 mg DAILY IV 10/03/20 09:00 10/11/20 12:00 10/07/20 09:23 Enoxaparin Sodium (Lovenox) 40 mg DAILY SUBQ 10/03/20 09:00 01/01/21 08:59 10/07/20 09:25 Furosemide (Lasix) 40 mg DAILY IV 10/03/20 09:00 11/02/20 08:59 10/07/20 09:22 Potassium Chloride (K-Dur) 40 meq DAILY ORAL 10/06/20 09:00 01/04/21 08:59 10/07/20 09:22 Remdesivir 100 mg/ Sodium Chloride 250 ml @ 250 mls/hr Q24H IV 10/04/20 22:00 10/07/20 22:59 10/06/20 21:01 Trazodone HCl (Desyrel) 25 mg BEDTIME ORAL 10/03/20 21:00 11/02/20 20:59 10/06/20 21:01 Allergies: Coded Allergies: No Known Allergies (Unverified , 10/02/20) ROS Limited/Unobtainable: No Constitutional: Reports: weakness HEENT: Denies: no symptoms, eye pain, blurred vision, tearing, double vision, ear pain, ear discharge, nose pain, nose congestion, throat pain, throat swelling, mouth pain, mouth swelling, other Cardiovascular: Denies: no symptoms, chest pain, edema, irregular heart rate, lightheadedness, palpitations, syncope, other Respiratory: Denies: no symptoms, cough, orthopnea, shortness of breath, SOB with excertion, SOB at rest, sputum, stridor, wheezing, other Gastrointestinal/Abdominal: Denies: no symptoms, abdomen distended, abdominal pain, black stools, tarry stools, blood in stool, constipated, diarrhea, difficulty swallowing, nausea, poor appetite, poor fluid intake, rectal bleeding, vomiting, other Genitourinary: Denies: no symptoms, burning, discharge, frequency, flank pain, hematuria, incontinence, pain, urgency, other Neurologic/Psychiatric: Denies: no symptoms, anxiety, depressed, emotional problems, headache, numbness, paresthesia, pre-existing deficit, seizure, tingling, tremors, weakness, other Subjective Less SOB oxygen requirement decreasing Objective Last Vital Signs Date Time Temp Pulse Resp B/P (MAP) Pulse Ox O2 Delivery O2 Flow Rate FiO2 10/07/20 16:00 97.8 73 18 116/74 (88) 96 10/07/20 09:00 Nasal Cannula 2.0 Laboratory Tests Test 10/07/20 10:10 White Blood Count 13.7 K/UL (4.8-10.8) H Red Blood Count 4.80 M/UL (4.20-5.40) Hemoglobin 13.9 G/DL (12.0-16.0) Hematocrit 42.2 % (37.0-47.0) Mean Corpuscular Volume 88 FL (80-99) Mean Corpuscular Hemoglobin 29.0 PG (27.0-31.0) Mean Corpuscular Hemoglobin Concent 33.1 G/DL (32.0-36.0) Red Cell Distribution Width 12.4 % (11.6-14.8) Platelet Count 415 K/UL (150-450) Mean Platelet Volume 8.2 FL (6.5-10.1) Neutrophils (%) (Auto) 78.9 % (45.0-75.0) H Lymphocytes (%) (Auto) 15.7 % (20.0-45.0) L Monocytes (%) (Auto) 4.5 % (1.0-10.0) Eosinophils (%) (Auto) 0.1 % (0.0-3.0) Basophils (%) (Auto) 0.8 % (0.0-2.0) Sodium Level 138 MMOL/L (136-145) Potassium Level 4.3 MMOL/L (3.5-5.1) Chloride Level 101 MMOL/L (98-107) Carbon Dioxide Level 28 MMOL/L (21-32) Anion Gap 9 mmol/L (5-15) Blood Urea Nitrogen 26 mg/dL (7-18) H Creatinine 0.8 MG/DL (0.55-1.30) Estimat Glomerular Filtration Rate > 60 mL/min (>60) Glucose Level 133 MG/DL (74-106) H Calcium Level 8.3 MG/DL (8.5-10.1) L Phosphorus Level 3.5 MG/DL (2.5-4.9) Magnesium Level 2.5 MG/DL (1.8-2.4) H Total Bilirubin 0.5 MG/DL (0.2-1.0) Direct Bilirubin < 0.1 MG/DL (0.0-0.3) Aspartate Amino Transf (AST/SGOT) 21 U/L (15-37) Alanine Aminotransferase (ALT/SGPT) 42 U/L (12-78) Alkaline Phosphatase 78 U/L (46-116) Total Protein 7.4 G/DL (6.4-8.2) Albumin 2.9 G/DL (3.4-5.0) L Globulin 4.5 g/dL Albumin/Globulin Ratio 0.6 (1.0-2.7) L Intake and Output 10/06/20 10/07/20 19:00 07:00 Intake Total 1000 ml 1000 ml Balance 1000 ml 1000 ml Intake Oral 1000 ml 700 ml IV Total 300 ml # Voids 2 3 # Bowel Movements 1 1 Objective General appearance: alert, cooperative, no distress, appears stated age Head: Normocephalic, without obvious abnormality, atraumatic Eyes: conjunctivae/corneas clear. PERRL, EOM's intact. Fundi benign Throat: Lips, mucosa, and tongue normal. Teeth and gums normal Neck: supple, symmetrical, trachea midline, no adenopathy, thyroid: not enlarged, symmetric, no tenderness/mass/nodules, no carotid bruit and no JVD Lungs: clear to auscultation bilaterally Heart: regular rate and rhythm, S1, S2 normal, no murmur, click, rub or gallop Abdomen: soft, non-tender. Bowel sounds normal. No masses, no organomegaly Extremities: extremities normal, atraumatic, no cyanosis or edema Pulses: 2+ and symmetric Skin: Skin color, texture, turgor normal. No rashes or lesions Neurologic: Grossly normal Assessment/Plan Assessment/Plan #COVID pneumonia #hypoxemic resp failure #sepsis - admit inpatient - ID eval - pulm eval - dexamethsone - defer remdesevir to ID - breathing tx - supplemental O2 - DCT ppx - monitor labs - avoid nephrotoxins Manuel Rajput M.D. Oct 07, 2020 17:52
--- NOTE | 2020-10-07 19:00 | NUR ---
NURSE HAND-OFF REPORT: Important Events on Shift: stable condition, titrating oxygen on 1L nasal cannula spO2 9%%, breathing even and unlabored Patient Status: stable condition, full code Diet: regular, small portions Pending Orders: [] Pending Results/Labs:[] Pending MD notification:[] Latest Vital Signs: Temperature 97.8 , Pulse 73 , B/P 116 /74 , Respiratory Rate 18 , O2 SAT 96 , Nasal Cannula, O2 Flow Rate 2.0 . Vital Sign Comment: [] EKG Rhythm: Sinus Rhythm Rhythm change?: MD Notified?: - MD Response: Latest Hugo Fall Score: 35 Fall Risk: Medium Risk Safety Measures: Call light Within Reach, Bed Alarm Zone 2, Side Rails Side Rails x2, Bed position Low and Locked. Fall Precautions: Yellow Socks Patient Fall Education Report given to YEN Taylor.
[2020-10-07 20:00] VITALS: BP 121/72
--- NOTE | 2020-10-07 20:00 | NUR ---
NURSE NOTES: Received patient awake, alert, verbal, no SOB noted.
[2020-10-07] MEDS: TraZODone HCl 25 mg tablet ORAL SCH (20:33)
[2020-10-07] MEDS: cefTRIAXone 1 GM in D5W 50 ML IVPB SCH (20:35)
[2020-10-07] MEDS: Maintenance Dose:Remdesivir 100mg/NS 230ml x 4 Doses IV SCH ×2 (21:59)
[2020-10-08] VITALS (7 sets, daily range): BP systolic 108–124; BP diastolic 57–77
--- NOTE | 2020-10-08 07:21 | NUR ---
HAND-OFF: Report given to Candace Walters RN.
[2020-10-08 07:23] LABS: BASOPHILS % (AUTO) 0.7 % (0.0-2.0); HEMATOCRIT 41.5 % (37.0-47.0); HEMOGLOBIN 13.7 G/DL (12.0-16.0); LYMPHOCYTES % (AUTO) 18.5 % (20.0-45.0); MEAN CORPUSCULAR VOLUME 88 FL (80-99); MONOCYTES % (AUTO) 5.1 % (1.0-10.0); NEUTROPHILS % (AUTO) 75.7 % (45.0-75.0); PLATELET COUNT 407 K/UL (150-450); RED BLOOD COUNT 4.72 M/UL (4.20-5.40); RED CELL DISTRIBUTION WIDTH 12.4 % (11.6-14.8); WHITE BLOOD COUNT 12.8 K/UL (4.8-10.8)
--- NOTE | 2020-10-08 07:45 | NUR ---
NURSE NOTES: Pt lying in bed w/bed in lowest position and call light within reach. Pt A&Ox4; VSS; on 2L NC; and in no apparent respiratory distress. IV site intact/asymptomatic & H/L'd and skin intact. Will continue to monitor.
[2020-10-08 07:50] LABS: ALANINE AMINOTRANSFERASE 38 U/L (12-78); ALBUMIN 2.8 G/DL (3.4-5.0); ALBUMIN/GLOBULIN RATIO 0.7 (1.0-2.7); ALKALINE PHOSPHATASE 69 U/L (46-116); ANION GAP 7 mmol/L (5-15); ASPARTATE AMINO TRANSFERASE 17 U/L (15-37); BILIRUBIN,TOTAL 0.4 MG/DL (0.2-1.0); BLOOD UREA NITROGEN 27 mg/dL (7-18); CALCIUM 8.1 MG/DL (8.5-10.1); CARBON DIOXIDE 29 MMOL/L (21-32); CHLORIDE 102 MMOL/L (98-107); CREATININE 0.8 MG/DL (0.55-1.30); POTASSIUM 4.7 MMOL/L (3.5-5.1); SODIUM 138 MMOL/L (136-145)
[2020-10-08] MEDS: dexAMETHasone 10mg/ml Inj IV SCH (08:52)
[2020-10-08] MEDS: Azithromycin 250mg tab ORAL SCH (08:52)
[2020-10-08] MEDS: Enoxaparin 40mg Inj SUBQ SCH (08:53)
--- NOTE | 2020-10-08 09:26 | Pulmonology Progress Note ---
Subjective ROS Limited/Unobtainable: No Constitutional: Reports: fatigue, other - feels better ; Denies: fever HEENT: Repors: no symptoms Respiratory: Reports: dry cough, shortness of breath Cardiovascular: Reports: no symptoms Gastrointestinal/Abdominal: Denies: nausea, vomiting, diarrhea Psychiatric: Denies: depression Skin: Denies: rash Musculoskeletal: Denies: pain Allergies: Coded Allergies: No Known Allergies (Unverified , 10/02/20) All Systems: reviewed and negative except above Objective Last 24 Hour Vital Signs Date Time Temp Pulse Resp B/P (MAP) Pulse Ox O2 Delivery O2 Flow Rate FiO2 10/08/20 08:00 97.7 78 18 108/63 (78) 97 10/08/20 04:21 98.1 71 18 115/73 (87) 94 10/08/20 00:00 97.8 65 16 120/72 (88) 92 10/07/20 21:00 Nasal Cannula 2.0 10/07/20 20:00 98.4 63 18 121/72 (88) 96 10/07/20 16:00 97.8 73 18 116/74 (88) 96 10/07/20 12:00 97.0 76 17 112/77 (89) 93 Intake and Output 10/07/20 10/08/20 19:00 07:00 Intake Total 800 ml 660 ml Balance 800 ml 660 ml Intake Oral 800 ml IV Total 300 ml Other 360 ml # Voids 3 2 Objective 10/08 saturating at 94% on 1L NC 10/07 saturating at 93% on 3L NC 10/04 saturating at 96% on 4L NC 10/03 saturating at 94-96% on 4L NC General Appearance: no acute distress HEENT: atraumatic Respiratory: lungs clear Cardiovascular: normal rate, regular rhythm Abdomen: soft, non tender Laboratory Tests 10/07/20 10:10: White Blood Count 13.7H, Red Blood Count 4.80, Hemoglobin 13.9, Hematocrit 42.2, Mean Corpuscular Volume 88, Mean Corpuscular Hemoglobin 29.0, Mean Corpuscular Hemoglobin Concent 33.1, Red Cell Distribution Width 12.4, Platelet Count 415, Mean Platelet Volume 8.2, Neutrophils (%) (Auto) 78.9H, Lymphocytes (%) (Auto) 15.7L, Monocytes (%) (Auto) 4.5, Eosinophils (%) (Auto) 0.1, Basophils (%) (Auto) 0.8, Sodium Level 138, Potassium Level 4.3, Chloride Level 101, Carbon Dioxide Level 28, Anion Gap 9, Blood Urea Nitrogen 26H, Creatinine 0.8, Estimat Glomerular Filtration Rate > 60, Glucose Level 133H, Calcium Level 8.3L, Phosphorus Level 3.5, Magnesium Level 2.5H, Total Bilirubin 0.5, Direct Bilirubin < 0.1, Aspartate Amino Transf (AST/SGOT) 21, Alanine Aminotransferase (ALT/SGPT) 42, Alkaline Phosphatase 78, Total Protein 7.4, Albumin 2.9L, Globulin 4.5, Albumin/Globulin Ratio 0.6L 10/08/20 06:35: White Blood Count 12.8H, Red Blood Count 4.72, Hemoglobin 13.7, Hematocrit 41.5, Mean Corpuscular Volume 88, Mean Corpuscular Hemoglobin 29.0, Mean Corpuscular Hemoglobin Concent 33.1, Red Cell Distribution Width 12.4, Platelet Count 407, Mean Platelet Volume 8.4, Neutrophils (%) (Auto) 75.7H, Lymphocytes (%) (Auto) 18.5L, Monocytes (%) (Auto) 5.1, Eosinophils (%) (Auto) 0.0, Basophils (%) (Auto) 0.7, Sodium Level 138, Potassium Level 4.7, Chloride Level 102, Carbon Dioxide Level 29, Anion Gap 7, Blood Urea Nitrogen 27H, Creatinine 0.8, Estimat Glomerular Filtration Rate > 60, Glucose Level 129H, Calcium Level 8.1L, Total Bilirubin 0.4, Aspartate Amino Transf (AST/SGOT) 17, Alanine Aminotransferase (ALT/SGPT) 38, Alkaline Phosphatase 69, Total Protein 7.1, Albumin 2.8L, Globulin 4.3, Albumin/Globulin Ratio 0.7L Current Medications Medications (Trade) Dose Ordered Sig/Libertad Route PRN Reason Start Time Stop Time Status Last Admin Dose Admin Acetaminophen (Tylenol) 650 mg Q6H PRN ORAL For Pain 10/02/20 17:15 11/01/20 17:14 10/06/20 00:31 Acetaminophen (Tylenol) 650 mg Q6H PRN ORAL Temp >100.5 10/02/20 17:15 11/01/20 17:14 10/05/20 15:18 Albuterol/ Ipratropium (Combivent Respimat) 1 puff Q4HRT INH 10/02/20 19:00 11/01/20 18:59 10/08/20 06:53 Azithromycin (Zithromax) 500 mg DAILY ORAL 10/04/20 09:00 10/11/20 08:59 10/08/20 08:52 Ceftriaxone Sodium 1 gm/ Dextrose 50 ml @ 100 mls/hr Q24H IVPB 10/03/20 21:00 10/10/20 20:59 10/07/20 20:35 Dexamethasone Sodium Phosphate (Decadron 10mg/ ml Inj) 6 mg DAILY IV 10/03/20 09:00 10/11/20 12:00 10/08/20 08:52 Enoxaparin Sodium (Lovenox) 40 mg DAILY SUBQ 10/03/20 09:00 01/01/21 08:59 10/08/20 08:53 Furosemide (Lasix) 40 mg DAILY IV 10/03/20 09:00 11/02/20 08:59 10/08/20 08:53 Potassium Chloride (K-Dur) 40 meq DAILY ORAL 10/06/20 09:00 01/04/21 08:59 10/08/20 08:52 Trazodone HCl (Desyrel) 25 mg BEDTIME ORAL 10/03/20 21:00 11/02/20 20:59 10/07/20 20:33 Assessment/Plan Assessment/Plan 1. Bilateral pneumonia. 2. COVID-19 pneumonia, confirmed on nasopharyngeal swab. - s/premdesivir per ID (10/04-10/07) - On Broad-spectrum antibiotics 3. Hypoxemia. - on Decadron (10/03-) - currently saturating at 94% on 1L NC; titrate down as tolerated - keep SaO2 >90% 4. hx of asthma - on albuterol prn DVT ppx - Lovenox We will follow carefully. The care for this patient was discussed with my supervising physician Time spent for this case was approximately 31 minutes Darryn Hernandez Oct 08, 2020 09:26
--- NOTE | 2020-10-08 11:44 | Cardiac Electrophysiology PN ---
Assessment/Plan Assessment/Plan 1. Elevated BNP of 633 and shortness of breath due to CHF and COVID pneumonia. EF 65% on Lasix 40 iv daily 2. COVID pneumonia on dexamethasone and Lovenox and 2 liter NC 3. Hypokalemia. Potassium was replaced. Subjective Subjective On 2 liter nasal cannula in Covid isolation. On Lasix 40 iv daily. VSS. Objective Last 24 Hour Vital Signs Date Time Temp Pulse Resp B/P (MAP) Pulse Ox O2 Delivery O2 Flow Rate FiO2 10/08/20 09:00 Nasal Cannula 2.0 10/08/20 08:00 97.7 78 18 108/63 (78) 97 10/08/20 04:21 98.1 71 18 115/73 (87) 94 10/08/20 00:00 97.8 65 16 120/72 (88) 92 10/07/20 21:00 Nasal Cannula 2.0 10/07/20 20:00 98.4 63 18 121/72 (88) 96 10/07/20 16:00 97.8 73 18 116/74 (88) 96 10/07/20 12:00 97.0 76 17 112/77 (89) 93 Intake and Output 10/07/20 10/08/20 19:00 07:00 Intake Total 800 ml 660 ml Balance 800 ml 660 ml Intake Oral 800 ml IV Total 300 ml Other 360 ml # Voids 3 2 Laboratory Tests Test 10/08/20 06:35 White Blood Count 12.8 K/UL (4.8-10.8) H Red Blood Count 4.72 M/UL (4.20-5.40) Hemoglobin 13.7 G/DL (12.0-16.0) Hematocrit 41.5 % (37.0-47.0) Mean Corpuscular Volume 88 FL (80-99) Mean Corpuscular Hemoglobin 29.0 PG (27.0-31.0) Mean Corpuscular Hemoglobin Concent 33.1 G/DL (32.0-36.0) Red Cell Distribution Width 12.4 % (11.6-14.8) Platelet Count 407 K/UL (150-450) Mean Platelet Volume 8.4 FL (6.5-10.1) Neutrophils (%) (Auto) 75.7 % (45.0-75.0) H Lymphocytes (%) (Auto) 18.5 % (20.0-45.0) L Monocytes (%) (Auto) 5.1 % (1.0-10.0) Eosinophils (%) (Auto) 0.0 % (0.0-3.0) Basophils (%) (Auto) 0.7 % (0.0-2.0) Sodium Level 138 MMOL/L (136-145) Potassium Level 4.7 MMOL/L (3.5-5.1) Chloride Level 102 MMOL/L (98-107) Carbon Dioxide Level 29 MMOL/L (21-32) Anion Gap 7 mmol/L (5-15) Blood Urea Nitrogen 27 mg/dL (7-18) H Creatinine 0.8 MG/DL (0.55-1.30) Estimat Glomerular Filtration Rate > 60 mL/min (>60) Glucose Level 129 MG/DL (74-106) H Calcium Level 8.1 MG/DL (8.5-10.1) L Total Bilirubin 0.4 MG/DL (0.2-1.0) Aspartate Amino Transf (AST/SGOT) 17 U/L (15-37) Alanine Aminotransferase (ALT/SGPT) 38 U/L (12-78) Alkaline Phosphatase 69 U/L (46-116) Total Protein 7.1 G/DL (6.4-8.2) Albumin 2.8 G/DL (3.4-5.0) L Globulin 4.3 g/dL Albumin/Globulin Ratio 0.7 (1.0-2.7) L Objective HEAD AND NECK: Mild JVD. LUNGS: Decreased breath sounds. CARDIOVASCULAR: Regular S1 and S2 with no gallop or murmur. ABDOMEN: Soft. EXTREMITIES: No pitting edema. Link Damon MD Oct 08, 2020 11:44
--- NOTE | 2020-10-08 12:43 | Internal Med Progress Note ---
Subjective Physician Name Manuel Rajput Attending Physician Manuel Rajput M.D. Current Medications Medications (Trade) Dose Ordered Sig/Libertad Route PRN Reason Start Time Stop Time Status Last Admin Dose Admin Acetaminophen (Tylenol) 650 mg Q6H PRN ORAL For Pain 10/02/20 17:15 11/01/20 17:14 10/06/20 00:31 Acetaminophen (Tylenol) 650 mg Q6H PRN ORAL Temp >100.5 10/02/20 17:15 11/01/20 17:14 10/05/20 15:18 Albuterol/ Ipratropium (Combivent Respimat) 1 puff Q4HRT INH 10/02/20 19:00 11/01/20 18:59 10/08/20 11:36 Azithromycin (Zithromax) 500 mg DAILY ORAL 10/04/20 09:00 10/11/20 08:59 10/08/20 08:52 Ceftriaxone Sodium 1 gm/ Dextrose 50 ml @ 100 mls/hr Q24H IVPB 10/03/20 21:00 10/10/20 20:59 10/07/20 20:35 Dexamethasone Sodium Phosphate (Decadron 10mg/ ml Inj) 6 mg DAILY IV 10/03/20 09:00 10/11/20 12:00 10/08/20 08:52 Enoxaparin Sodium (Lovenox) 40 mg DAILY SUBQ 10/03/20 09:00 01/01/21 08:59 10/08/20 08:53 Furosemide (Lasix) 40 mg DAILY IV 10/03/20 09:00 11/02/20 08:59 10/08/20 08:53 Potassium Chloride (K-Dur) 40 meq DAILY ORAL 10/06/20 09:00 01/04/21 08:59 10/08/20 08:52 Trazodone HCl (Desyrel) 25 mg BEDTIME ORAL 10/03/20 21:00 11/02/20 20:59 10/07/20 20:33 Allergies: Coded Allergies: No Known Allergies (Unverified , 10/02/20) ROS Limited/Unobtainable: No Constitutional: Reports: weakness HEENT: Denies: no symptoms, eye pain, blurred vision, tearing, double vision, e ar pain, ear discharge, nose pain, nose congestion, throat pain, throat swelling, mouth pain, mouth swelling, other Cardiovascular: Denies: no symptoms, chest pain, edema, irregular heart rate, lightheadedness, palpitations, syncope, other Respiratory: Denies: no symptoms, cough, orthopnea, shortness of breath, SOB with excertion, SOB at rest, sputum, stridor, wheezing, other Gastrointestinal/Abdominal: Denies: no symptoms, abdomen distended, abdominal pain, black stools, tarry stools, blood in stool, constipated, diarrhea, difficulty swallowing, nausea, poor appetite, poor fluid intake, rectal bleeding, vomiting, other Genitourinary: Denies: no symptoms, burning, discharge, frequency, flank pain, hematuria, incontinence, pain, urgency, other Neurologic/Psychiatric: Denies: no symptoms, anxiety, depressed, emotional problems, headache, numbness, paresthesia, pre-existing deficit, seizure, tingling, tremors, weakness, other Subjective Less SOB oxygen requirement decreasing Objective Last Vital Signs Date Time Temp Pulse Resp B/P (MAP) Pulse Ox O2 Delivery O2 Flow Rate FiO2 10/08/20 11:49 97.2 70 20 118/57 (77) 94 10/08/20 09:00 Nasal Cannula 2.0 Laboratory Tests Test 10/08/20 06:35 White Blood Count 12.8 K/UL (4.8-10.8) H Red Blood Count 4.72 M/UL (4.20-5.40) Hemoglobin 13.7 G/DL (12.0-16.0) Hematocrit 41.5 % (37.0-47.0) Mean Corpuscular Volume 88 FL (80-99) Mean Corpuscular Hemoglobin 29.0 PG (27.0-31.0) Mean Corpuscular Hemoglobin Concent 33.1 G/DL (32.0-36.0) Red Cell Distribution Width 12.4 % (11.6-14.8) Platelet Count 407 K/UL (150-450) Mean Platelet Volume 8.4 FL (6.5-10.1) Neutrophils (%) (Auto) 75.7 % (45.0-75.0) H Lymphocytes (%) (Auto) 18.5 % (20.0-45.0) L Monocytes (%) (Auto) 5.1 % (1.0-10.0) Eosinophils (%) (Auto) 0.0 % (0.0-3.0) Basophils (%) (Auto) 0.7 % (0.0-2.0) Sodium Level 138 MMOL/L (136-145) Potassium Level 4.7 MMOL/L (3.5-5.1) Chloride Level 102 MMOL/L (98-107) Carbon Dioxide Level 29 MMOL/L (21-32) Anion Gap 7 mmol/L (5-15) Blood Urea Nitrogen 27 mg/dL (7-18) H Creatinine 0.8 MG/DL (0.55-1.30) Estimat Glomerular Filtration Rate > 60 mL/min (>60) Glucose Level 129 MG/DL (74-106) H Calcium Level 8.1 MG/DL (8.5-10.1) L Total Bilirubin 0.4 MG/DL (0.2-1.0) Aspartate Amino Transf (AST/SGOT) 17 U/L (15-37) Alanine Aminotransferase (ALT/SGPT) 38 U/L (12-78) Alkaline Phosphatase 69 U/L (46-116) Total Protein 7.1 G/DL (6.4-8.2) Albumin 2.8 G/DL (3.4-5.0) L Globulin 4.3 g/dL Albumin/Globulin Ratio 0.7 (1.0-2.7) L Intake and Output 10/07/20 10/08/20 19:00 07:00 Intake Total 800 ml 660 ml Balance 800 ml 660 ml Intake Oral 800 ml IV Total 300 ml Other 360 ml # Voids 3 2 Objective General appearance: alert, cooperative, no distress, appears stated age Head: Normocephalic, without obvious abnormality, atraumatic Eyes: conjunctivae/corneas clear. PERRL, EOM's intact. Fundi benign Throat: Lips, mucosa, and tongue normal. Teeth and gums normal Neck: supple, symmetrical, trachea midline, no adenopathy, thyroid: not enlarged, symmetric, no tenderness/mass/nodules, no carotid bruit and no JVD Lungs: clear to auscultation bilaterally Heart: regular rate and rhythm, S1, S2 normal, no murmur, click, rub or gallop Abdomen: soft, non-tender. Bowel sounds normal. No masses, no organomegaly Extremities: extremities normal, atraumatic, no cyanosis or edema Pulses: 2+ and symmetric Skin: Skin color, texture, turgor normal. No rashes or lesions Neurologic: Grossly normal Assessment/Plan Assessment/Plan #COVID pneumonia #hypoxemic resp failure #sepsis - admit inpatient - ID eval - pulm eval - dexamethsone - defer remdesevir to ID - breathing tx - supplemental O2 - DCT ppx - monitor labs - avoid nephrotoxins Manuel Rajput M.D. Oct 08, 2020 12:43
--- NOTE | 2020-10-08 14:48 | Cardiology Report ---
APPROVED REPORT EXAM: Two-dimensional and M-mode echocardiogram with Doppler and color Doppler. INDICATION Congestive Heart Failure M-Mode DIMENSIONS IVSd0.9 (0.7-1.1cm)Left Atrium (MM)3.7 (1.6-4.0cm) LVDd4.0 (3.5-5.6cm)Aortic Root3.0 (2.0-3.7cm) PWd0.8 (0.7-1.1cm)Aortic Cusp Exc.1.7 (1.5-2.0cm) IVSs1.0 cmEPSS0.8 (>1.0cm) LVDs2.6 (2.5-4.0cm) PWs1.1 cm <Conclusion> Technically difficult study due to poor acoustic windows. Study quality precludes accurate assessment of regional wall motion. Normal left ventricular chamber size, systolic function and wall motion. Left ventricular ejection fraction estimated to be 65 %. No evidence of left ventricular hypertrophy. No evidence of pericardial effusion. All other cardiac chamber sizes are within normal limits. Focal aortic valve sclerosis with adequate cusp excursion. Thickened mitral valve leaflets with normal excursion. Mitral annulus and aortic root calcification. Pulmonic valve not well visualized. Normal tricuspid valve structure. IVC is normal in size with physiological collapse. A color flow and spectral Doppler study was performed and revealed: No aortic regurgitation. Trace mitral regurgitation. Normal left ventricular diastolic function. Trace tricuspid regurgitation. Tricuspid systolic velocities suggests peak right ventricular systolic pressure of 25 mmHg. Trace pulmonic regurgitation present.
--- NOTE | 2020-10-08 16:06 | NUR ---
CASE MANAGEMENT:REVIEW SI;BILATERAL COVID PNA 98.1 78 20 120/72 92% 2L NC WBC 12.8 BUN 27 ALB 2.8 IS;K-DUR PO BID ZITHROMAX PO QD ROCEPHIN IV QD LASIX IV QD LOVENOX SQ QD DECADRON IV QD MED SURG STATUS DCP;FROM HOME
--- NOTE | 2020-10-08 19:14 | NUR ---
NURSE HAND-OFF: Important Events on Shift: Pt sating well on 2L NC; no new events. Patient Status: Stable Diet: Regular Pending Orders: None Pending Results/Labs: None Pending MD notification: None Latest Vital Signs: Temperature 97.7 , Pulse 74 , B/P 124 /77 , Respiratory Rate 20 , O2 SAT 97 , Nasal Cannula, O2 Flow Rate 2.0 . Vital Sign Comment: Stable Latest Hugo Fall Score: 35 Fall Risk: Medium Risk Safety Measures: Call light Within Reach, Bed Alarm Zone 2, Side Rails Side Rails x2, Bed position Low and Locked. Fall Precautions: Yellow Socks Patient Fall Education Report given to YEN Guzman.
--- NOTE | 2020-10-08 19:55 | NUR ---
NURSE NOTES: Received patient awake, alert, verbal, resting in bed, comfortable.
[2020-10-08] MEDS: TraZODone HCl 25 mg tablet ORAL SCH (20:59)
[2020-10-08] MEDS: cefTRIAXone 1 GM in D5W 50 ML IVPB SCH (21:00)
[2020-10-09 04:29] VITALS: BP 130/75
--- NOTE | 2020-10-09 07:03 | NUR ---
HAND-OFF: Report given to Andrade Hyde RN.
--- NOTE | 2020-10-09 07:30 | NUR ---
NURSE NOTES: Handoff received from Megan BARLOW. Patient is awake and alert, no signs of acute distress noted, breathing is even and unlabored on room air. Right hand IV is intact and saline locked. No reports of pain or discomfort at this time. Bed is low and locked, side rails up x2, call light is within reach.
[2020-10-09 08:00] VITALS: BP 125/70
[2020-10-09] MEDS: Azithromycin 250mg tab ORAL SCH (09:04)
[2020-10-09] MEDS: dexAMETHasone 10mg/ml Inj IV SCH (09:04)
[2020-10-09] MEDS: Enoxaparin 40mg Inj SUBQ SCH (09:05)
--- NOTE | 2020-10-09 10:25 | Cardiac Electrophysiology PN ---
Assessment/Plan Assessment/Plan 1. Elevated BNP of 633 and shortness of breath due to CHF and COVID pneumonia. EF 65% on Lasix 40 iv daily 2. COVID pneumonia on dexamethasone and Lovenox 3. Hypokalemia. Potassium was replaced. Subjective Subjective On RA in Covid isolation on Lasix 40 iv daily. VSS.Alert in NAD Objective Last 24 Hour Vital Signs Date Time Temp Pulse Resp B/P (MAP) Pulse Ox O2 Delivery O2 Flow Rate FiO2 10/09/20 09:00 Nasal Cannula 2.0 10/09/20 08:00 96.8 70 18 125/70 (88) 97 10/09/20 04:29 97.7 67 18 130/75 (93) 99 10/08/20 20:31 97.5 76 18 124/70 (88) 96 10/08/20 20:14 Nasal Cannula 2.0 10/08/20 16:00 97.7 74 20 124/77 (93) 97 10/08/20 11:49 97.2 70 20 118/57 (77) 94 10/08/20 11:45 97.2 70 20 118/77 (91) 94 Intake and Output 10/08/20 10/09/20 19:00 07:00 Intake Total 1680 ml 410 ml Balance 1680 ml 410 ml Intake Oral 1680 ml IV Total 50 ml Other 360 ml # Voids 2 Objective HEAD AND NECK: Mild JVD. LUNGS: Decreased breath sounds. CARDIOVASCULAR: Regular S1 and S2 with no gallop or murmur. ABDOMEN: Soft. EXTREMITIES: No pitting edema. Link Damon MD Oct 09, 2020 10:25
[2020-10-09 12:00] VITALS: BP 121/69
--- NOTE | 2020-10-09 13:11 | Internal Med Progress Note ---
Subjective Physician Name Manuel Rajput Attending Physician Manuel Rajput M.D. Current Medications Medications (Trade) Dose Ordered Sig/Libertad Route PRN Reason Start Time Stop Time Status Last Admin Dose Admin Acetaminophen (Tylenol) 650 mg Q6H PRN ORAL For Pain 10/02/20 17:15 11/01/20 17:14 10/06/20 00:31 Acetaminophen (Tylenol) 650 mg Q6H PRN ORAL Temp >100.5 10/02/20 17:15 11/01/20 17:14 10/05/20 15:18 Albuterol/ Ipratropium (Combivent Respimat) 1 puff Q4HRT INH 10/02/20 19:00 11/01/20 18:59 10/09/20 10:18 Azithromycin (Zithromax) 500 mg DAILY ORAL 10/04/20 09:00 10/11/20 08:59 10/09/20 09:04 Ceftriaxone Sodium 1 gm/ Dextrose 50 ml @ 100 mls/hr Q24H IVPB 10/03/20 21:00 10/10/20 20:59 10/08/20 21:00 Dexamethasone Sodium Phosphate (Decadron 10mg/ ml Inj) 6 mg DAILY IV 10/03/20 09:00 10/11/20 12:00 10/09/20 09:04 Enoxaparin Sodium (Lovenox) 40 mg DAILY SUBQ 10/03/20 09:00 01/01/21 08:59 10/09/20 09:05 Furosemide (Lasix) 40 mg DAILY IV 10/03/20 09:00 11/02/20 08:59 10/09/20 09:04 Potassium Chloride (K-Dur) 40 meq DAILY ORAL 10/06/20 09:00 01/04/21 08:59 10/09/20 09:04 Trazodone HCl (Desyrel) 25 mg BEDTIME ORAL 10/03/20 21:00 11/02/20 20:59 10/08/20 20:59 Allergies: Coded Allergies: No Known Allergies (Unverified , 10/02/20) ROS Limited/Unobtainable: No Constitutional: Reports: weakness HEENT: Denies: no symptoms, eye pain, blurred vision, tearing, double vision, e ar pain, ear discharge, nose pain, nose congestion, throat pain, throat swelling, mouth pain, mouth swelling, other Cardiovascular: Denies: no symptoms, chest pain, edema, irregular heart rate, lightheadedness, palpitations, syncope, other Respiratory: Denies: no symptoms, cough, orthopnea, shortness of breath, SOB with excertion, SOB at rest, sputum, stridor, wheezing, other Gastrointestinal/Abdominal: Denies: no symptoms, abdomen distended, abdominal pain, black stools, tarry stools, blood in stool, constipated, diarrhea, difficulty swallowing, nausea, poor appetite, poor fluid intake, rectal bleeding, vomiting, other Genitourinary: Denies: no symptoms, burning, discharge, frequency, flank pain, hematuria, incontinence, pain, urgency, other Neurologic/Psychiatric: Denies: no symptoms, anxiety, depressed, emotional problems, headache, numbness, paresthesia, pre-existing deficit, seizure, tingling, tremors, weakness, other Subjective Less SOB oxygen requirement decreasing Objective Last Vital Signs Date Time Temp Pulse Resp B/P (MAP) Pulse Ox O2 Delivery O2 Flow Rate FiO2 10/09/20 12:00 97.0 68 17 121/69 (86) 97 10/09/20 09:00 Nasal Cannula 2.0 Intake and Output 10/08/20 10/09/20 19:00 07:00 Intake Total 1680 ml 410 ml Balance 1680 ml 410 ml Intake Oral 1680 ml IV Total 50 ml Other 360 ml # Voids 2 Objective General appearance: alert, cooperative, no distress, appears stated age Head: Normocephalic, without obvious abnormality, atraumatic Eyes: conjunctivae/corneas clear. PERRL, EOM's intact. Fundi benign Throat: Lips, mucosa, and tongue normal. Teeth and gums normal Neck: supple, symmetrical, trachea midline, no adenopathy, thyroid: not enlarged, symmetric, no tenderness/mass/nodules, no carotid bruit and no JVD Lungs: clear to auscultation bilaterally Heart: regular rate and rhythm, S1, S2 normal, no murmur, click, rub or gallop Abdomen: soft, non-tender. Bowel sounds normal. No masses, no organomegaly Extremities: extremities normal, atraumatic, no cyanosis or edema Pulses: 2+ and symmetric Skin: Skin color, texture, turgor normal. No rashes or lesions Neurologic: Grossly normal Assessment/Plan Assessment/Plan #COVID pneumonia #hypoxemic resp failure #sepsis - admit inpatient - ID eval - pulm eval - dexamethsone - defer remdesevir to ID - breathing tx - supplemental O2 - DCT ppx - monitor labs - avoid nephrotoxins Manuel Rajput M.D. Oct 09, 2020 13:11
--- NOTE | 2020-10-09 14:13 | NUR ---
CASE MANAGEMENT:REVIEW SI;BILATERAL COVID PNA 96.8 76 18 130/75 96% 2L NC IS;K-FUR PO QD ZITHROMAX PO QD ROCEPHIN IV Q24 LASIX IV QD LOVENOX SQ QD DECADRON IV QD COMBIVENT INH Q4HRT MED SURG STATUS DCP;FROM HOME DC PLANNING TO HOME WEANING O2
--- NOTE | 2020-10-09 14:49 | Pulmonology Progress Note ---
Subjective ROS Limited/Unobtainable: No Interval Events: none major reported per nursing Constitutional: Reports: fatigue, other - feels better ; Denies: fever HEENT: Repors: no symptoms Respiratory: Reports: dry cough, shortness of breath Cardiovascular: Reports: no symptoms Gastrointestinal/Abdominal: Denies: nausea, vomiting, diarrhea Psychiatric: Denies: depression Skin: Denies: rash Musculoskeletal: Denies: pain Allergies: Coded Allergies: No Known Allergies (Unverified , 10/02/20) All Systems: reviewed and negative except above Objective Last 24 Hour Vital Signs Date Time Temp Pulse Resp B/P (MAP) Pulse Ox O2 Delivery O2 Flow Rate FiO2 10/09/20 12:00 97.0 68 17 121/69 (86) 97 10/09/20 09:00 Nasal Cannula 2.0 10/09/20 08:00 96.8 70 18 125/70 (88) 97 10/09/20 04:29 97.7 67 18 130/75 (93) 99 10/08/20 20:31 97.5 76 18 124/70 (88) 96 10/08/20 20:14 Nasal Cannula 2.0 10/08/20 16:00 97.7 74 20 124/77 (93) 97 Intake and Output 10/08/20 10/09/20 19:00 07:00 Intake Total 1680 ml 410 ml Balance 1680 ml 410 ml Intake Oral 1680 ml IV Total 50 ml Other 360 ml # Voids 2 Objective 10/09 saturating at 95% on RA now 10/08 saturating at 94% on 1L NC 10/07 saturating at 93% on 3L NC 10/04 saturating at 96% on 4L NC 10/03 saturating at 94-96% on 4L NC General Appearance: no acute distress HEENT: atraumatic Respiratory: lungs clear Cardiovascular: normal rate, regular rhythm Abdomen: soft, non tender Current Medications Medications (Trade) Dose Ordered Sig/Libertad Route PRN Reason Start Time Stop Time Status Last Admin Dose Admin Acetaminophen (Tylenol) 650 mg Q6H PRN ORAL For Pain 10/02/20 17:15 11/01/20 17:14 10/06/20 00:31 Acetaminophen (Tylenol) 650 mg Q6H PRN ORAL Temp >100.5 10/02/20 17:15 11/01/20 17:14 10/05/20 15:18 Albuterol/ Ipratropium (Combivent Respimat) 1 puff Q4HRT INH 10/02/20 19:00 11/01/20 18:59 10/09/20 10:18 Azithromycin (Zithromax) 500 mg DAILY ORAL 10/04/20 09:00 10/11/20 08:59 10/09/20 09:04 Ceftriaxone Sodium 1 gm/ Dextrose 50 ml @ 100 mls/hr Q24H IVPB 10/03/20 21:00 10/10/20 20:59 10/08/20 21:00 Dexamethasone Sodium Phosphate (Decadron 10mg/ ml Inj) 6 mg DAILY IV 10/03/20 09:00 10/11/20 12:00 10/09/20 09:04 Enoxaparin Sodium (Lovenox) 40 mg DAILY SUBQ 10/03/20 09:00 01/01/21 08:59 10/09/20 09:05 Furosemide (Lasix) 40 mg DAILY IV 10/03/20 09:00 11/02/20 08:59 10/09/20 09:04 Potassium Chloride (K-Dur) 40 meq DAILY ORAL 10/06/20 09:00 01/04/21 08:59 10/09/20 09:04 Trazodone HCl (Desyrel) 25 mg BEDTIME ORAL 10/03/20 21:00 11/02/20 20:59 10/08/20 20:59 Assessment/Plan Assessment/Plan 1. Bilateral pneumonia. 2. COVID-19 pneumonia, confirmed on nasopharyngeal swab. - s/premdesivir per ID (10/04-10/07) - On Broad-spectrum antibiotics 3. Hypoxemia. - on Decadron (10/03-) - currently saturating at 95% on RA - keep SaO2 >90% 4. hx of asthma - on albuterol prn DVT ppx - Lovenox We will follow carefully. The care for this patient was discussed with my supervising physician Time spent for this case was approximately 31 minutes Darryn Hernandez Oct 09, 2020 14:48
[2020-10-09 16:00] VITALS: BP 120/81
--- NOTE | 2020-10-09 17:57 | Infectious Diseases Prog Note ---
Assessment/Plan Assessment/Plan ASSESSMENT AND PLAN: 1. covid-19 infection with hypoxia, ? cap, ? sepsis, leukocytosis and fevers klebsiella uti - dexamethasone - s/p remdesivir - ceftriaxone - day # 7 - s/p azithromycin - monitor labs - monitor hypoxia - clinically improved, less sob, less O2 requirement 2. No other significant past medical history. 3. Social history is negative. 4. Family history is noncontributory. 5. MAR is noted. 6. Case was discussed with RN. 7. Continue treatment per primary consultants. Subjective Constitutional: Denies: fever HEENT: Denies: congestion Respiratory: Denies: shortness of breath, productive cough Cardiovascular: Denies: chest pain Gastrointestinal/Abdominal: Denies: nausea, vomiting, diarrhea Neurologic: Denies: headache Psychiatric: Denies: depression Skin: Denies: rash Hematologic: Denies: bleeding Musculoskeletal: Denies: pain Allergies: Coded Allergies: No Known Allergies (Unverified , 10/02/20) Objective Last 24 Hour Vital Signs Date Time Temp Pulse Resp B/P (MAP) Pulse Ox O2 Delivery O2 Flow Rate FiO2 10/09/20 16:00 98.7 78 22 120/81 (94) 96 10/09/20 12:00 97.0 68 17 121/69 (86) 97 10/09/20 09:00 Nasal Cannula 2.0 10/09/20 08:00 96.8 70 18 125/70 (88) 97 10/09/20 04:29 97.7 67 18 130/75 (93) 99 10/08/20 20:31 97.5 76 18 124/70 (88) 96 10/08/20 20:14 Nasal Cannula 2.0 Height (Feet): 5 Height (Inches): 4.00 Weight (Pounds): 150 General Appearance: no acute distress HEENT: normocephalic, atraumatic, anicteric, mucous membranes moist Respiratory/Chest: no respiratory distress, no accessory muscle use, crackles/rales, rhonchi - bilaterally Cardiovascular: normal rate, regular rhythm, no gallop/murmur Abdomen: normal bowel sounds, soft, non tender, no organomegaly, non distended Genitourinary: other - no bahena Extremities: no cyanosis Skin: no rash Neurologic/Psychiatric: recruitment specialist II-XII grossly normal, alert Lymphatic: no neck adenopathy Musculoskeletal: no effusion Chest x-ray - 10/02/20 - Procedure: XRAY Chest 1v Indication: Cough Technique: One view of the chest Comparison: none Findings: There are bilateral mid and lower lung streaky infiltrates in a peribronchovascular distribution. The heart size is upper limits normal. There is torturous ectatic and calcified. Impression: Bilateral infiltrates, likely multifocal pneumonia, likely viral Chest x-ray - 10/06/20- IMPRESSION: Similar to slightly increased patchy opacity throughout the lungs, concerning for an infectious/inflammatory process such as Covid 19 infection. Microbiology Date/Time Source Procedure Growth Status 10/02/20 10:45 Urine,Clean Catch Urine Culture - Final Klebsiella Pneumoniae Mixed Urogenital Contaminants Complete 10/02/20 10:15 Nasopharynx SARS-CoV-2 RdRp Gene Assay - Final Complete 10/02/20 10:15 Blood Blood Culture - Final NO GROWTH AFTER 5 DAYS Complete Labs Test 10/07/20 10:10 10/08/20 06:35 White Blood Count 13.7 K/UL (4.8-10.8) 12.8 K/UL (4.8-10.8) Red Blood Count 4.80 M/UL (4.20-5.40) 4.72 M/UL (4.20-5.40) Hemoglobin 13.9 G/DL (12.0-16.0) 13.7 G/DL (12.0-16.0) Hematocrit 42.2 % (37.0-47.0) 41.5 % (37.0-47.0) Mean Corpuscular Volume 88 FL (80-99) 88 FL (80-99) Mean Corpuscular Hemoglobin 29.0 PG (27.0-31.0) 29.0 PG (27.0-31.0) Mean Corpuscular Hemoglobin Concent 33.1 G/DL (32.0-36.0) 33.1 G/DL (32.0-36.0) Red Cell Distribution Width 12.4 % (11.6-14.8) 12.4 % (11.6-14.8) Platelet Count 415 K/UL (150-450) 407 K/UL (150-450) Mean Platelet Volume 8.2 FL (6.5-10.1) 8.4 FL (6.5-10.1) Neutrophils (%) (Auto) 78.9 % (45.0-75.0) 75.7 % (45.0-75.0) Lymphocytes (%) (Auto) 15.7 % (20.0-45.0) 18.5 % (20.0-45.0) Monocytes (%) (Auto) 4.5 % (1.0-10.0) 5.1 % (1.0-10.0) Eosinophils (%) (Auto) 0.1 % (0.0-3.0) 0.0 % (0.0-3.0) Basophils (%) (Auto) 0.8 % (0.0-2.0) 0.7 % (0.0-2.0) Sodium Level 138 MMOL/L (136-145) 138 MMOL/L (136-145) Potassium Level 4.3 MMOL/L (3.5-5.1) 4.7 MMOL/L (3.5-5.1) Chloride Level 101 MMOL/L (98-107) 102 MMOL/L (98-107) Carbon Dioxide Level 28 MMOL/L (21-32) 29 MMOL/L (21-32) Anion Gap 9 mmol/L (5-15) 7 mmol/L (5-15) Blood Urea Nitrogen 26 mg/dL (7-18) 27 mg/dL (7-18) Creatinine 0.8 MG/DL (0.55-1.30) 0.8 MG/DL (0.55-1.30) Estimat Glomerular Filtration Rate > 60 mL/min (>60) > 60 mL/min (>60) Glucose Level 133 MG/DL (74-106) 129 MG/DL (74-106) Calcium Level 8.3 MG/DL (8.5-10.1) 8.1 MG/DL (8.5-10.1) Phosphorus Level 3.5 MG/DL (2.5-4.9) Magnesium Level 2.5 MG/DL (1.8-2.4) Total Bilirubin 0.5 MG/DL (0.2-1.0) 0.4 MG/DL (0.2-1.0) Direct Bilirubin < 0.1 MG/DL (0.0-0.3) Aspartate Amino Transf (AST/SGOT) 21 U/L (15-37) 17 U/L (15-37) Alanine Aminotransferase (ALT/SGPT) 42 U/L (12-78) 38 U/L (12-78) Alkaline Phosphatase 78 U/L (46-116) 69 U/L (46-116) Total Protein 7.4 G/DL (6.4-8.2) 7.1 G/DL (6.4-8.2) Albumin 2.9 G/DL (3.4-5.0) 2.8 G/DL (3.4-5.0) Globulin 4.5 g/dL 4.3 g/dL Albumin/Globulin Ratio 0.6 (1.0-2.7) 0.7 (1.0-2.7) Current Medications Medications (Trade) Dose Ordered Sig/Libertad Route PRN Reason Start Time Stop Time Status Last Admin Dose Admin Acetaminophen (Tylenol) 650 mg Q6H PRN ORAL For Pain 10/02/20 17:15 11/01/20 17:14 10/09/20 17:16 Acetaminophen (Tylenol) 650 mg Q6H PRN ORAL Temp >100.5 10/02/20 17:15 11/01/20 17:14 10/05/20 15:18 Albuterol/ Ipratropium (Combivent Respimat) 1 puff Q4HRT INH 10/02/20 19:00 11/01/20 18:59 10/09/20 15:21 Azithromycin (Zithromax) 500 mg DAILY ORAL 10/04/20 09:00 10/11/20 08:59 10/09/20 09:04 Ceftriaxone Sodium 1 gm/ Dextrose 50 ml @ 100 mls/hr Q24H IVPB 10/03/20 21:00 10/10/20 20:59 10/08/20 21:00 Dexamethasone Sodium Phosphate (Decadron 10mg/ ml Inj) 6 mg DAILY IV 10/03/20 09:00 10/11/20 12:00 10/09/20 09:04 Enoxaparin Sodium (Lovenox) 40 mg DAILY SUBQ 10/03/20 09:00 01/01/21 08:59 10/09/20 09:05 Furosemide (Lasix) 40 mg DAILY IV 10/03/20 09:00 11/02/20 08:59 10/09/20 09:04 Potassium Chloride (K-Dur) 40 meq DAILY ORAL 10/06/20 09:00 01/04/21 08:59 10/09/20 09:04 Trazodone HCl (Desyrel) 25 mg BEDTIME ORAL 10/03/20 21:00 11/02/20 20:59 10/08/20 20:59 Cristiano Grant MD Oct 09, 2020 17:56
--- NOTE | 2020-10-09 19:30 | NUR ---
NURSE NOTES: Received report from YEN Nuno. Received pt lying in bed, AOX4. denies any pain, no SOB. NAD noted. Bed in lowest position and locked. Side rails up x 2. Call light within reach. Will continue to monitor.
--- NOTE | 2020-10-09 19:33 | NUR ---
HAND-OFF: Report given to YEN Koch.
[2020-10-09 20:00] VITALS: BP 110/59
[2020-10-09] MEDS: TraZODone HCl 25 mg tablet ORAL SCH (20:35)
[2020-10-09] MEDS: cefTRIAXone 1 GM in D5W 50 ML IVPB SCH (20:54)
[2020-10-10 04:00] VITALS: BP 116/74
[2020-10-10 06:07] LABS: BASOPHILS % (AUTO) 0.2 % (0.0-2.0); HEMATOCRIT 42.5 % (37.0-47.0); HEMOGLOBIN 14.1 G/DL (12.0-16.0); LYMPHOCYTES % (AUTO) 17.1 % (20.0-45.0); MEAN CORPUSCULAR VOLUME 85 FL (80-99); NEUTROPHILS % (AUTO) 76.7 % (45.0-75.0); PLATELET COUNT 487 K/UL (150-450); RED BLOOD COUNT 5.01 M/UL (4.20-5.40); RED CELL DISTRIBUTION WIDTH 12.1 % (11.6-14.8); WHITE BLOOD COUNT 11.4 K/UL (4.8-10.8)
[2020-10-10 06:47] LABS: ANION GAP 7 mmol/L (5-15); BLOOD UREA NITROGEN 29 mg/dL (7-18); CALCIUM 8.8 MG/DL (8.5-10.1); CARBON DIOXIDE 28 MMOL/L (21-32); CHLORIDE 101 MMOL/L (98-107); CREATININE 0.8 MG/DL (0.55-1.30); POTASSIUM 4.4 MMOL/L (3.5-5.1); SODIUM 136 MMOL/L (136-145)
--- NOTE | 2020-10-10 07:30 | NUR ---
NURSE HAND-OFF: Important Events on Shift: none Patient Status: stable Diet: Regular Pending Orders: none Pending Results/Labs: N/A Pending MD notification:N/A Latest Vital Signs: Temperature 97.7 , Pulse 60 , B/P 116 /74 , Respiratory Rate 18 , O2 SAT 97 , Nasal Cannula, O2 Flow Rate 2.0 . Vital Sign Comment: Stable Latest Hugo Fall Score: 35 Fall Risk: Medium Risk Safety Measures: Call light Within Reach, Bed Alarm Zone 2, Side Rails Side Rails x2, Bed position Low and Locked. Fall Precautions: Yellow Socks Patient Fall Education Report given to YEN Weaver
--- NOTE | 2020-10-10 07:36 | NUR ---
HAND-OFF: Report given to: YEN Jeff Addendum: 10/10/20 at 0737 by YANCY LEDEZMA RN Report Given: YEN Weaver
--- NOTE | 2020-10-10 07:40 | NUR ---
NURSE NOTES: Received report from YEN Jasso. Rounding done. Pt a/o x 4. No SOB noted with room air. Denies any pain at this time. Rt hand IV access is in placed. Bed in lowest position, call light within reach. Will continue to monitor.
[2020-10-10 08:00] VITALS: BP 110/58
[2020-10-10] MEDS: dexAMETHasone 10mg/ml Inj IV SCH (08:21)
[2020-10-10] MEDS: Enoxaparin 40mg Inj SUBQ SCH (08:22)
--- NOTE | 2020-10-10 08:54 | Pulmonology Progress Note ---
Subjective ROS Limited/Unobtainable: No Interval Events: none major reported per nursing Constitutional: Denies: fever HEENT: Repors: no symptoms Respiratory: Reports: dry cough, shortness of breath - better Cardiovascular: Reports: no symptoms Gastrointestinal/Abdominal: Denies: nausea, vomiting, diarrhea Psychiatric: Denies: depression Skin: Denies: rash Musculoskeletal: Denies: pain Allergies: Coded Allergies: No Known Allergies (Unverified , 10/02/20) All Systems: reviewed and negative except above Objective Last 24 Hour Vital Signs Date Time Temp Pulse Resp B/P (MAP) Pulse Ox O2 Delivery O2 Flow Rate FiO2 10/10/20 08:00 98.0 70 18 110/58 (75) 96 10/10/20 04:00 97.7 60 18 116/74 (88) 97 10/09/20 21:00 Nasal Cannula 2.0 10/09/20 20:00 97.5 74 18 110/59 (76) 97 10/09/20 16:00 98.7 78 22 120/81 (94) 96 10/09/20 12:00 97.0 68 17 121/69 (86) 97 10/09/20 09:00 Nasal Cannula 2.0 Intake and Output 10/09/20 10/10/20 19:00 07:00 Intake Total 500 ml 410 ml Balance 500 ml 410 ml Intake Oral 400 ml 360 ml IV Total 50 ml Other 100 ml # Voids 4 2 Objective 10/10 saturating well on 2L NC; pt uses oxygen prn 10/09 saturating at 95% on RA now 10/08 saturating at 94% on 1L NC 10/07 saturating at 93% on 3L NC 10/04 saturating at 96% on 4L NC 10/03 saturating at 94-96% on 4L NC General Appearance: no acute distress HEENT: atraumatic Respiratory: lungs clear Cardiovascular: normal rate, regular rhythm Abdomen: soft, non tender Laboratory Tests 10/10/20 04:57: White Blood Count 11.4H, Red Blood Count 5.01, Hemoglobin 14.1, Hematocrit 42.5, Mean Corpuscular Volume 85, Mean Corpuscular Hemoglobin 28.1, Mean Corpuscular Hemoglobin Concent 33.1, Red Cell Distribution Width 12.1, Platelet Count 487H, Mean Platelet Volume 9.0, Neutrophils (%) (Auto) 76.7H, Lymphocytes (%) (Auto) 17.1L, Monocytes (%) (Auto) 6.0, Eosinophils (%) (Auto) 0.0, Basophils (%) (Auto) 0.2, Sodium Level 136, Potassium Level 4.4, Chloride Level 101, Carbon Dioxide Level 28, Anion Gap 7, Blood Urea Nitrogen 29H, Creatinine 0.8, Estimat Glomerular Filtration Rate > 60, Glucose Level 132H, Calcium Level 8.8 Current Medications Medications (Trade) Dose Ordered Sig/Libertad Route PRN Reason Start Time Stop Time Status Last Admin Dose Admin Acetaminophen (Tylenol) 650 mg Q6H PRN ORAL For Pain 10/02/20 17:15 11/01/20 17:14 10/09/20 17:16 Acetaminophen (Tylenol) 650 mg Q6H PRN ORAL Temp >100.5 10/02/20 17:15 11/01/20 17:14 10/05/20 15:18 Albuterol/ Ipratropium (Combivent Respimat) 1 puff Q4HRT INH 10/02/20 19:00 11/01/20 18:59 10/10/20 07:26 Ceftriaxone Sodium 1 gm/ Dextrose 50 ml @ 100 mls/hr Q24H IVPB 10/03/20 21:00 10/10/20 20:59 10/09/20 20:54 Dexamethasone Sodium Phosphate (Decadron 10mg/ ml Inj) 6 mg DAILY IV 10/03/20 09:00 10/11/20 12:00 10/10/20 08:21 Enoxaparin Sodium (Lovenox) 40 mg DAILY SUBQ 10/03/20 09:00 01/01/21 08:59 10/10/20 08:22 Furosemide (Lasix) 40 mg DAILY IV 10/03/20 09:00 11/02/20 08:59 10/10/20 08:21 Potassium Chloride (K-Dur) 40 meq DAILY ORAL 10/06/20 09:00 01/04/21 08:59 10/10/20 08:21 Trazodone HCl (Desyrel) 25 mg BEDTIME ORAL 10/03/20 21:00 11/02/20 20:59 10/09/20 20:35 Assessment/Plan Assessment/Plan 1. Bilateral pneumonia. 2. COVID-19 pneumonia, confirmed on nasopharyngeal swab. - s/p remdesivir per ID (10/04-10/07) - s/p azithromycin (10/04-10/09) - s/p ceftriaxone (10/03-10/10) 3. Hypoxemia. - on Decadron (10/03-) - currently saturating well on 2L NC; will wean off today - keep SaO2 >90% 4. hx of asthma - on albuterol prn DVT ppx - Lovenox We will follow carefully. The care for this patient was discussed with my supervising physician Time spent for this case was approximately 31 minutes Darryn Hernandez Oct 10, 2020 08:54
--- NOTE | 2020-10-10 09:23 | Cardiac Electrophysiology PN ---
Assessment/Plan Assessment/Plan 1. Elevated BNP of 633 and shortness of breath due to CHF and COVID pneumonia. EF 65% on Lasix 40 iv daily 2. COVID pneumonia on Ceftriaxone. 6 mg iv dexamethasone daily and Lovenox 3. Hypokalemia. Potassium was replaced. Subjective Subjective On RA in Covid isolation on Lasix 40 iv daily and Decadron 6. VSS.Alert in NAD Objective Last 24 Hour Vital Signs Date Time Temp Pulse Resp B/P (MAP) Pulse Ox O2 Delivery O2 Flow Rate FiO2 10/10/20 08:00 98.0 70 18 110/58 (75) 96 10/10/20 04:00 97.7 60 18 116/74 (88) 97 10/09/20 21:00 Nasal Cannula 2.0 10/09/20 20:00 97.5 74 18 110/59 (76) 97 10/09/20 16:00 98.7 78 22 120/81 (94) 96 10/09/20 12:00 97.0 68 17 121/69 (86) 97 Intake and Output 10/09/20 10/10/20 19:00 07:00 Intake Total 500 ml 410 ml Balance 500 ml 410 ml Intake Oral 400 ml 360 ml IV Total 50 ml Other 100 ml # Voids 4 2 Laboratory Tests Test 10/10/20 04:57 White Blood Count 11.4 K/UL (4.8-10.8) H Red Blood Count 5.01 M/UL (4.20-5.40) Hemoglobin 14.1 G/DL (12.0-16.0) Hematocrit 42.5 % (37.0-47.0) Mean Corpuscular Volume 85 FL (80-99) Mean Corpuscular Hemoglobin 28.1 PG (27.0-31.0) Mean Corpuscular Hemoglobin Concent 33.1 G/DL (32.0-36.0) Red Cell Distribution Width 12.1 % (11.6-14.8) Platelet Count 487 K/UL (150-450) H Mean Platelet Volume 9.0 FL (6.5-10.1) Neutrophils (%) (Auto) 76.7 % (45.0-75.0) H Lymphocytes (%) (Auto) 17.1 % (20.0-45.0) L Monocytes (%) (Auto) 6.0 % (1.0-10.0) Eosinophils (%) (Auto) 0.0 % (0.0-3.0) Basophils (%) (Auto) 0.2 % (0.0-2.0) Sodium Level 136 MMOL/L (136-145) Potassium Level 4.4 MMOL/L (3.5-5.1) Chloride Level 101 MMOL/L (98-107) Carbon Dioxide Level 28 MMOL/L (21-32) Anion Gap 7 mmol/L (5-15) Blood Urea Nitrogen 29 mg/dL (7-18) H Creatinine 0.8 MG/DL (0.55-1.30) Estimat Glomerular Filtration Rate > 60 mL/min (>60) Glucose Level 132 MG/DL (74-106) H Calcium Level 8.8 MG/DL (8.5-10.1) Objective HEAD AND NECK: Mild JVD. LUNGS: Decreased breath sounds. CARDIOVASCULAR: Regular S1 and S2 with no gallop or murmur. ABDOMEN: Soft. EXTREMITIES: No pitting edema. Link Damon MD Oct 10, 2020 09:23
--- NOTE | 2020-10-10 10:27 | NUR ---
RD ASSESSMENT & RECOMMENDATIONS SEE CARE ACTIVITY FOR COMPLETE ASSESSMENT DAILY ESTIMATED NEEDS: Needs based on Pulmonary 60kg abw 25-30 kcals/kg [id number] total kcals 1-1.5 g protein/kg 60-90 g total protein On lasix, fluid per MD NUTRITION DIAGNOSIS: Altered nutrition related lab values r/t clinical status as evidenced by pt is covid ++, on steroidal mead, elevated BG (129-133). CURRENT DIET: Regular PO DIET RECOMMENDATIONS: Maintain Regular diet, texture as tolerated ADDITIONAL RECOMMENDATIONS: 1) Monitor wts daily on lasix Check lytes on lasix, replete as needed 2) Add supplement qdaily w/ variable po intake 3) Monitor BG w/ decadron, need for niss and accuchecks.
[2020-10-10 12:00] VITALS: BP 114/70
--- NOTE | 2020-10-10 12:58 | NUR ---
NURSE NOTES: Dr. Rajput came and saw the pt. MD ordered d/c home with home meds.
--- NOTE | 2020-10-10 13:03 | Internal Med Progress Note ---
Subjective Physician Name Manuel Rajput Attending Physician Manuel Rajput M.D. Current Medications Medications (Trade) Dose Ordered Sig/Libertad Route PRN Reason Start Time Stop Time Status Last Admin Dose Admin Acetaminophen (Tylenol) 650 mg Q6H PRN ORAL For Pain 10/02/20 17:15 11/01/20 17:14 10/09/20 17:16 Acetaminophen (Tylenol) 650 mg Q6H PRN ORAL Temp >100.5 10/02/20 17:15 11/01/20 17:14 10/05/20 15:18 Albuterol/ Ipratropium (Combivent Respimat) 1 puff Q4HRT INH 10/02/20 19:00 11/01/20 18:59 10/10/20 11:16 Ceftriaxone Sodium 1 gm/ Dextrose 50 ml @ 100 mls/hr Q24H IVPB 10/03/20 21:00 10/10/20 20:59 10/09/20 20:54 Dexamethasone Sodium Phosphate (Decadron 10mg/ ml Inj) 6 mg DAILY IV 10/03/20 09:00 10/11/20 12:00 10/10/20 08:21 Enoxaparin Sodium (Lovenox) 40 mg DAILY SUBQ 10/03/20 09:00 01/01/21 08:59 10/10/20 08:22 Furosemide (Lasix) 40 mg DAILY IV 10/03/20 09:00 11/02/20 08:59 10/10/20 08:21 Potassium Chloride (K-Dur) 40 meq DAILY ORAL 10/06/20 09:00 01/04/21 08:59 10/10/20 08:21 Trazodone HCl (Desyrel) 25 mg BEDTIME ORAL 10/03/20 21:00 11/02/20 20:59 10/09/20 20:35 Allergies: Coded Allergies: No Known Allergies (Unverified , 10/02/20) Subjective Less SOB oxygen requirement decreasing Objective Last Vital Signs Date Time Temp Pulse Resp B/P (MAP) Pulse Ox O2 Delivery O2 Flow Rate FiO2 10/10/20 12:00 97.7 69 18 114/70 (85) 95 10/10/20 09:00 Room Air Laboratory Tests Test 10/10/20 04:57 White Blood Count 11.4 K/UL (4.8-10.8) H Red Blood Count 5.01 M/UL (4.20-5.40) Hemoglobin 14.1 G/DL (12.0-16.0) Hematocrit 42.5 % (37.0-47.0) Mean Corpuscular Volume 85 FL (80-99) Mean Corpuscular Hemoglobin 28.1 PG (27.0-31.0) Mean Corpuscular Hemoglobin Concent 33.1 G/DL (32.0-36.0) Red Cell Distribution Width 12.1 % (11.6-14.8) Platelet Count 487 K/UL (150-450) H Mean Platelet Volume 9.0 FL (6.5-10.1) Neutrophils (%) (Auto) 76.7 % (45.0-75.0) H Lymphocytes (%) (Auto) 17.1 % (20.0-45.0) L Monocytes (%) (Auto) 6.0 % (1.0-10.0) Eosinophils (%) (Auto) 0.0 % (0.0-3.0) Basophils (%) (Auto) 0.2 % (0.0-2.0) Sodium Level 136 MMOL/L (136-145) Potassium Level 4.4 MMOL/L (3.5-5.1) Chloride Level 101 MMOL/L (98-107) Carbon Dioxide Level 28 MMOL/L (21-32) Anion Gap 7 mmol/L (5-15) Blood Urea Nitrogen 29 mg/dL (7-18) H Creatinine 0.8 MG/DL (0.55-1.30) Estimat Glomerular Filtration Rate > 60 mL/min (>60) Glucose Level 132 MG/DL (74-106) H Calcium Level 8.8 MG/DL (8.5-10.1) Intake and Output 10/09/20 10/10/20 19:00 07:00 Intake Total 500 ml 410 ml Balance 500 ml 410 ml Intake Oral 400 ml 360 ml IV Total 50 ml Other 100 ml # Voids 4 2 Objective General appearance: alert, cooperative, no distress, appears stated age Head: Normocephalic, without obvious abnormality, atraumatic Eyes: conjunctivae/corneas clear. PERRL, EOM's intact. Fundi benign Throat: Lips, mucosa, and tongue normal. Teeth and gums normal Neck: supple, symmetrical, trachea midline, no adenopathy, thyroid: not enlarged, symmetric, no tenderness/mass/nodules, no carotid bruit and no JVD Lungs: clear to auscultation bilaterally Heart: regular rate and rhythm, S1, S2 normal, no murmur, click, rub or gallop Abdomen: soft, non-tender. Bowel sounds normal. No masses, no organomegaly Extremities: extremities normal, atraumatic, no cyanosis or edema Pulses: 2+ and symmetric Skin: Skin color, texture, turgor normal. No rashes or lesions Neurologic: Grossly normal Assessment/Plan Assessment/Plan #COVID pneumonia #hypoxemic resp failure #sepsis - admit inpatient - ID eval - pulm eval - dexamethsone - defer remdesevir to ID - breathing tx - supplemental O2 - DCT ppx - monitor labs - avoid nephrotoxins Manuel Rajput M.D. Oct 10, 2020 13:03
--- NOTE | 2020-10-10 15:15 | NUR ---
NURSE NOTES: Discharge instruction was given to pt. ID/IV removed. Escorted patient to downstairs. Pt discharged in stable condition.
--- NOTE | 2020-10-11 14:23 | Discharge Summary ---
Discharge Summary Discharge Summary _ Date of admission: 10/02/2020 Date of discharge: 10/10/[address] Rajput History of Present Illness and Brief Hospital Course Ms. Michel is a 55-year-old female with no prior medical history who was brought in by ambulance for evaluation of shortness of breath and cough x4 days. She was reported to be saturating at 88 to 90% on room air. She reported that her symptoms were gradual in onset, and severity was moderate. Room air ABG confirmed hypoxemia. She was immediately placed on nasal cannula at 4 L. Chest x-ray showed multifocal groundglass infiltrates, which were consistent with COVID-19 pneumonia rather than CHF. COVID-19 rapid swab was positive. Initial laboratory studies were unremarkable except for ABG showing hypoxemia. Patient was admitted to the hospital for further management and care. For her COVID-19 pneumonia, she was provided with remdesivir, and broad-spectrum antibiotics as well as Decadron. Patient continued to receive low-flow oxygen via nasal cannula and she remained saturating well. She was also given albuter ol puff as needed due to her history of asthma. Eventually she was able to be weaned off of supplemental oxygen and returned to show normal work of breathing on room air. Patient's initial laboratory studies revealed elevated BNP. She was evaluated with 2D echocardiogram which revealed left ventricular ejection fraction of 65%. Patient was started on Lasix. Patient was given Lovenox for DVT prophylaxis measure. On the day of discharge, she was breathing well on room air and was stable for discharge. Patient was discharged home. Consultants: Cardiology Dr. Damon Infectious disease Dr. Grant Pulmonology Dr. Jean-Bpatiste Discharge Condition Improved and stable Final diagnoses COVID-19 pneumonia Hypokalemia Elevated BNP Sepsis Hypoxemic respiratory failure I have been assigned to dictate discharge summary for this account. Darryn Hernandez Oct 11, 2020 14:23
--- NOTE | 2020-10-11 16:29 | NUR ---
insurance dc summary faxed to [facility] P [phone] F [phone] AND P [phone] F [phone]
== END 2020-10-10 15:30 | disposition home or self-care (01) | DRG 720 ==
LOC: EDBEDREQ 10:21 → EMR 13:26 → 4E 13:48 → EDBEDREQ 14:12 → OBSVTOIN 14:16 → 4E 15:55
PROC: XW033E5 Introduction of Remdesivir Anti-infective into Peripheral Vein, Percutaneous Approach, New Technology Group 5 (ICD-10-PCS; principal; 2020-10-03)
DX: A41.89 Other specified sepsis (principal); U07.1 COVID-19; J96.91 Respiratory failure, unspecified with hypoxia; J12.82 Pneumonia due to coronavirus disease 2019; E87.6 Hypokalemia; J45.909 Unspecified asthma, uncomplicated; N39.0 Urinary tract infection, site not specified; B96.1 Klebsiella pneumoniae [K. pneumoniae] as the cause of diseases classified elsewhere
CPT/HCPCS: 36415; 71045; 80048; 80053; 81003; 82248; 82550; 82803; 83605; 83735; 83880; 84100; 84439; 84443; 84484; 85007; 85025; 86710; 87040; 87086; 87181; 93005; 93306; 96365; 96367; 96375; 99291; J3490; J8499; U0002